=== PATIENT | male | born 1940 | race Caucasian/White ===

== ENCOUNTER → 2016-11-08 | Outpatient (CLI) | payer OTHER ==
[2016-03-19 09:52] VITALS: BP 133/63
[2016-11-08 11:05] LABS: BASOPHILS % (AUTO) 0.4 % (0.2-1.0); EOSINOPHILS % (AUTO) 0.6 % (0.9-2.9); HEMATOCRIT 43.3 % (42.0-54.0); HEMOGLOBIN 15.2 g/dL (13.5-18.0); LYMPHOCYTES # (AUTO) 1.3 X10^3/uL (1.3-2.9); LYMPHOCYTES % (AUTO) 20.6 % (21.0-51.0); MEAN CORPUSCULAR HEMOGLOBIN 31.1 pg (27.0-34.0); MEAN CORPUSCULAR HGB CONC 35.2 g/dL (33.0-35.0); MEAN CORPUSCULAR VOLUME 88.3 fL (80.0-100.0); MEAN PLATELET VOLUME 8.8 fL (7.4-11.0); MONOCYTES # (AUTO) 0.7 x10^3/uL (0.3-0.8); MONOCYTES % (AUTO) 10.4 % (0.0-13.0); NEUTROPHILS # (AUTO) 4.3 x10^3/uL (2.2-4.8); PLATELET COUNT 203 X10^3/uL (150.0-450.0); RED CELL DISTRIBUTION WIDTH 12.9 % (11.6-16.5); WHITE BLOOD COUNT 6.3 X10^3/uL (3.6-10.0)
[2016-11-08 11:09] LABS: ALANINE AMINOTRANSFERASE 20 Units/L (12-78); ALBUMIN 4.2 g/dL (3.4-5.0); ALKALINE PHOSPHATASE 88 Units/L (46-116); ASPARTATE AMINO TRANSFERASE 18 Units/L (15-37); BLOOD UREA NITROGEN 24 mg/dL (7-18); CALCIUM 9.1 mg/dL (8.5-10.1); CHLORIDE 102 mmol/L (98-107); CHOL/HDL RATIO 4.4 (0.0-5.0); CHOLESTEROL 157 mg/dL (0-200); COR NA(FOR HYPERGLY) 141 mmol/L (136-145); CREATININE 1.64 mg/dL (0.70-1.30); GLUCOSE 132 mg/dL (65-99); HDL CHOLESTEROL 36 mg/dL (40-60); SODIUM 140 mmol/L (136-145); THEOPHYLLINE 19.3 ug/mL (10-20); TOTAL PROTEIN 7.8 g/dL (6.4-8.2); TRIGLYCERIDES 141 mg/dL (0-150); eGFR BLACK RACES 53 (>60); eGFR NON BLACK RACES 43 (>60)
[2016-11-14 08:12] LABS: METHYLMALONIC ACID 0.23 umol/L (0.00-0.40)
== END ==
LOC: LAB 10:37
PROVIDERS: ATTEND Nurse Practitioner Family
DX: R53.83 Other fatigue (principal); E78.4 Other hyperlipidemia; J44.9 Chronic obstructive pulmonary disease, unspecified
CPT/HCPCS: 36415; 80053; 80061; 80198; 82306; 82607; 83918; 85025

== ENCOUNTER 2016-11-26 10:46 | Emergency (ER) | payer OTHER ==
[2016-11-26 10:53] VITALS: BP 166/78; BMI 34.0
[2016-11-26 11:24] LABS: BASOPHILS % (AUTO) 0.7 % (0.2-1.0); EOSINOPHILS # (AUTO) 0.1 x10^3/uL (0.0-0.2); EOSINOPHILS % (AUTO) 2.4 % (0.9-2.9); HEMATOCRIT 41.1 % (42.0-54.0); HEMOGLOBIN 14.4 g/dL (13.5-18.0); LYMPHOCYTES # (AUTO) 1.7 X10^3/uL (1.3-2.9); LYMPHOCYTES % (AUTO) 29.7 % (21.0-51.0); MEAN CORPUSCULAR HEMOGLOBIN 30.9 pg (27.0-34.0); MEAN CORPUSCULAR HGB CONC 35.1 g/dL (33.0-35.0); MEAN CORPUSCULAR VOLUME 88.3 fL (80.0-100.0); MONOCYTES # (AUTO) 0.4 x10^3/uL (0.3-0.8); MONOCYTES % (AUTO) 6.7 % (0.0-13.0); NEUTROPHILS # (AUTO) 3.5 x10^3/uL (2.2-4.8); NEUTROPHILS % (AUTO) 60.5 % (42.0-75.0); PLATELET COUNT 194 X10^3/uL (150.0-450.0); RED BLOOD COUNT 4.66 X10^6/uL (4.7-6.0); RED CELL DISTRIBUTION WIDTH 13.1 % (11.6-16.5); WHITE BLOOD COUNT 5.8 X10^3/uL (3.6-10.0)
--- NOTE | 2016-11-26 11:26 | DR.AMS ---
HPI - Time Seen Time seen: 11:00 - PCP Primary Care Physician: LIZZIE PLATA - Complaint Chief Complaint:: PATIENT STATED HE THOUGHT HE WAS HAVING A STROKE CAUSE HE WAS PRAYING FRIDAY AND HE FORGOT WHAT HE WAS PRAYING ABOUT. HE STATED SINCE FRIDAY HE HAS BEEN FINE - Reviewed Nurses Notes Reviewed: Yes - Source History Provided: Patient - Mode of Arrival Mode of Arrival: Ambulatory - Timing Onset of Chief Complaint: 11/24/16 Came On: Suddenly Symptoms: Improving Symptom Onset: Known Onset of Symptoms Start Date: 11/24/16 Onset of Symptoms Start Time: 11:00 - Duration Duration: Minutes - Quality Quality: Memory Loss (at that time not now) - Severity Severity: Mild - Context Recent: denies: None, Fever, Cough, Urinary Symptoms, Nausea, Vomiting, Rash, Trauma, Medication Change, Drug Use History Of: None - Associated Signs and Symptoms Associated Signs and Symptoms: Headache PMH - PMH Past Medical History: Yes Past Medical History: COPD, Coronary Artery Disease, Hypertension Past Surgical History: Yes Surgical History: Angioplasty/Stents, TURP - Family History History of Family Medical Conditions: Yes Family Medical History: Diabetes Mellitus, [place], Hypertension - Social History Does patient currently use any type of tobacco product: No Have you used tobacco products in the last 12 months: No Type of Tobacco Use: None Does any household member use tobacco: No Alcohol Use: None Do you use any recreational Drugs:: No Lives With: Family - infectious screening In the last 2 months have you had wt loss of >10#?: NO Have you had fever, night sweats or hemotysis?: No Have you traveled outside the country in the last 6 months?: No Isolation: Standard ROS - Review of Systems Constitutional: No Symptoms Reported Eyes: No Symptoms Reported ENTM: No Symptoms Reported Respiratoy: No Symptoms Reported Cardiovascular: No Symptoms Reported Gastrointestinal/Abdominal: No Symptoms Reported Genitourinary: No Symptoms Reported Neurological: Headache Musculoskeletal: No Symptoms Reported Integumentary: No Symptoms Reported Hematologic/Lymphatic: No Symptoms Reported Endocrine: No Symptoms Reported Psychiatric: Depression PE - Vitals Vital Signs: Temp Pulse Resp BP BP BP Pulse Ox 11/26/16 10:47 98.9 F 82 16 166/78 99 03/19/16 09:33 133/63 01/26/14 11:50 126/71 01/26/14 10:36 124/70 - General Limitations: No Limitations General Appearance: Alert, In No Apparent Distress - Head Head Exam: Normal Inspection Head Exam Physical: negative: Laceration, Abrasion, Contusion, Hematoma, Raccoon Eyes, Guerra's Sign, Tenderness of Temporal Artery, CSF Rhinorrhea, CSF Otorrhea, Other - Eyes Eye exam: Normal Appearance, PERRL, EOMI. negative: Scleral Icterus, Conjunctival Injection Pupils: Regular, Round: Bilateral - ENT ENT Exam: Normal Exam, Normal Oropharynx External Ear Exam: Normal External Inspection Nose Exam: Normal Nose Exam Mouth Exam: Normal Inspection Throat Exam: Normal Inspection - Neck Neck Exam: Normal Inspection, Full ROM, Trachea Midline - Chest Chest Inspection: Normal Inspection - Respiratory Respiratory Exam: Normal Lung Sounds Bilat. negative: Accessory Muscle Use, Respiratory Distress Respiratory Exam: Bilateral Clear to Auscultation - Cardiovascular Cardiovascular Exam: Regular Rate - Abdominal Exam Abdominal Exam: Normal Inspection - Extremities Extremities Exam: Normal Inspection, Full ROM - Neurological Neurological Exam: Alert, Oriented X3, CN II-XII Intact Patient Oriented To: Person, Place, Time Speech: Fluid Speech (states he has problems finding words) Cranial Nerve Exam: EOM Function (II, III, IV, ): Normal, Facial Sensation (V) : Normal, Facial Palsy (VII): Normal, Gag reflex (XI): Normal, Spinal Accessory Function (XI): Normal, Tongue Deviation: Normal Motor Strength - LUE: 4/5 Motor Strength - RUE: 4/5 Motor Strength - LLE: 4/5 Motor Strength - RLE: 4/5 - Psychological Psychiatric Exam: Normal Mood - Skin Skin Exam: Intact, Normal Color ROR - Labs Reviewed Result Diagrams: 11/26/16 11:18 11/26/16 11:18 Laboratory: WBC 5.8 X10^3/uL (3.6-10.0) 11/26/16 11:18 RBC 4.66 X10^6/uL (4.7-6.0) L 11/26/16 11:18 Hgb 14.4 g/dL (13.5-18.0) 11/26/16 11:18 Hct 41.1 % (42.0-54.0) L 11/26/16 11:18 MCV 88.3 fL (80.0-100.0) 11/26/16 11:18 MCH 30.9 pg (27.0-34.0) 11/26/16 11:18 MCHC 35.1 g/dL (33.0-35.0) H 11/26/16 11:18 RDW 13.1 % (11.6-16.5) 11/26/16 11:18 Plt Count 194 X10^3/uL (150.0-450.0) 11/26/16 11:18 MPV 9.0 fL (7.4-11.0) 11/26/16 11:18 Neut % 60.5 % (42.0-75.0) 11/26/16 11:18 Lymph % 29.7 % (21.0-51.0) 11/26/16 11:18 [place] % 6.7 % (0.0-13.0) 11/26/16 11:18 Eos % 2.4 % (0.9-2.9) 11/26/16 11:18 Baso % 0.7 % (0.2-1.0) 11/26/16 11:18 Neut # 3.5 x10^3/uL (2.2-4.8) 11/26/16 11:18 Lymph # 1.7 X10^3/uL (1.3-2.9) 11/26/16 11:18 [place] # 0.4 x10^3/uL (0.3-0.8) 11/26/16 11:18 Eos # 0.1 x10^3/uL (0.0-0.2) 11/26/16 11:18 Baso # 0.0 X10^3/uL (0.0-0.1) 11/26/16 11:18 Absolute Nucleated RBC 0.0 /100WBC 11/26/16 11:18 Sodium 143 mmol/L (136-145) 11/26/16 11:18 Corrected Sodium TNP 11/26/16 11:18 Potassium 3.9 mmol/L (3.5-5.1) 11/26/16 11:18 Chloride 107 mmol/L (98-107) 11/26/16 11:18 Carbon Dioxide 25.5 mmol/L (21-32) 11/26/16 11:18 BUN 20 mg/dL (7-18) H 11/26/16 11:18 Creatinine 1.51 mg/dL (0.70-1.30) H 11/26/16 11:18 Est GFR (MDRD) Af Amer 58 (>60) L 11/26/16 11:18 Est GFR (MDRD) Non-Af 48 (>60) L 11/26/16 11:18 Glucose 109 mg/dL (65-99) H 11/26/16 11:18 Calcium 9.1 mg/dL (8.5-10.1) 11/26/16 11:18 Corrected Calcium TNP 11/26/16 11:18 Total Bilirubin 0.50 mg/dL (0.2-1.0) 11/26/16 11:18 AST 17 Units/L (15-37) 11/26/16 11:18 ALT 21 Units/L (12-78) 11/26/16 11:18 Alkaline Phosphatase 78 Units/L (46-116) 11/26/16 11:18 Total Protein 7.3 g/dL (6.4-8.2) 11/26/16 11:18 Albumin 4.1 g/dL (3.4-5.0) 11/26/16 11:18 Globulin 3.2 g/dL (2.5-4.5) 11/26/16 11:18 Albumin/Globulin Ratio 1.3 Ratio (1.1-2.1) 11/26/16 11:18 - XRAY XRAY Interpreted by: Radiologist XRAY Findings: CT Head: no acute findings - Diagnosis Discharge Problem: Transient memory loss - Discharge Plan Condition: Stable Prescriptions: Ibuprofen [Motrin Tab 800 mg] 800 mg PO Q8H PRN #30 tab PRN Reason: Pain/Inflammation - Follow ups/Referrals Follow ups/Referrals: Lizzie Plata [Primary Care Provider] - 3 days - Instructions
[2016-11-26 11:36] LABS: ALANINE AMINOTRANSFERASE 21 Units/L (12-78); ALBUMIN 4.1 g/dL (3.4-5.0); ALKALINE PHOSPHATASE 78 Units/L (46-116); ASPARTATE AMINO TRANSFERASE 17 Units/L (15-37); BLOOD UREA NITROGEN 20 mg/dL (7-18); CALCIUM 9.1 mg/dL (8.5-10.1); CARBON DIOXIDE 25.5 mmol/L (21-32); CHLORIDE 107 mmol/L (98-107); CREATININE 1.51 mg/dL (0.70-1.30); GLUCOSE 109 mg/dL (65-99); SODIUM 143 mmol/L (136-145); TOTAL PROTEIN 7.3 g/dL (6.4-8.2); eGFR BLACK RACES 58 (>60); eGFR NON BLACK RACES 48 (>60)
--- NOTE | 2016-11-26 11:51 | CT ---
HISTORY: Headache, memory loss Study: CT brain without contrast Comparison: None Technique: Multiple axial images of the brain were obtained from the skull base to the vertex without administr ation of IV contrast. Coronal and sagittal reformats were performed. Dose reduction procedures were used with MA/kv adjusted for body size. Findings: No acute intraparenchymal hemorrhage or mass can be identified. No extra-axial fluid collections ar e seen. No alteration in the attenuation of the brain parenchyma can be identified to suggest acute or subacute ischemic change. The ventricular system is symmetric and nondilated. there is decrease d attenuation in the periventricular white matter suggestive of small vessel vascular disease. Age-r elated cortical atrophy is present. The extracranial structures are grossly unremarkable. IMPRESSION: 1. No acute intracranial process can be identified. 2. Small-vessel disease 3. Age-related cortical atrophy Reported By:
[2016-11-26] MEDS ORDERED: MOTRIN TAB 800 MG PO ONE ×2 (12:02→12:03)
== END 2016-11-26 12:09 | disposition home or self-care (01) ==
LOC: ER 10:46
DX: R41.3 Other amnesia (principal); R51 Headache
CPT/HCPCS: 36415; 70450; 80053; 85025; 93005; 93010; 99283

== ENCOUNTER → 2016-11-28 | Outpatient (CLI) | payer OTHER ==
[2016-11-26 10:53] VITALS: BP 166/78
[2016-11-28 13:31] LABS: BASOPHILS % (AUTO) 0.4 % (0.2-1.0); EOSINOPHILS # (AUTO) 0.1 x10^3/uL (0.0-0.2); EOSINOPHILS % (AUTO) 1.7 % (0.9-2.9); HEMATOCRIT 40.8 % (42.0-54.0); HEMOGLOBIN 14.2 g/dL (13.5-18.0); LYMPHOCYTES # (AUTO) 1.9 X10^3/uL (1.3-2.9); LYMPHOCYTES % (AUTO) 28.7 % (21.0-51.0); MEAN CORPUSCULAR HEMOGLOBIN 30.9 pg (27.0-34.0); MEAN CORPUSCULAR HGB CONC 34.9 g/dL (33.0-35.0); MEAN CORPUSCULAR VOLUME 88.6 fL (80.0-100.0); MEAN PLATELET VOLUME 8.7 fL (7.4-11.0); MONOCYTES # (AUTO) 0.4 x10^3/uL (0.3-0.8); MONOCYTES % (AUTO) 6.1 % (0.0-13.0); NEUTROPHILS # (AUTO) 4.2 x10^3/uL (2.2-4.8); NEUTROPHILS % (AUTO) 63.1 % (42.0-75.0); PLATELET COUNT 200 X10^3/uL (150.0-450.0); RED BLOOD COUNT 4.61 X10^6/uL (4.7-6.0); RED CELL DISTRIBUTION WIDTH 13.3 % (11.6-16.5); RETICULOCYTE % 2.08 % (0.8-2.2); WHITE BLOOD COUNT 6.7 X10^3/uL (3.6-10.0)
[2016-11-28 13:41] LABS: FREE T4 (FREE THYROXINE) 0.91 ng/dL (0.76-1.46); TSH (3RD GENERATION) 1.366 uIU/mL (0.358-3.74)
[2016-12-02 13:13] LABS: METHYLMALONIC ACID 0.17 umol/L (0.00-0.40)
== END ==
LOC: LAB 12:18
PROVIDERS: ATTEND Nurse Practitioner Family
DX: R41.3 Other amnesia (principal)
CPT/HCPCS: 36415; 82607; 82615; 82746; 83918; 84436; 84439; 84443; 85025; 85045; 86256; 86340; 86592

== ENCOUNTER → 2016-12-12 | Outpatient (CLI) | payer OTHER ==
[2016-11-26 10:53] VITALS: BP 166/78
--- NOTE | 2016-12-12 14:12 | MRI ---
STUDY: MRI OF THE BRAIN WITHOUT AND WITH GADOLINIUM HISTORY: Temporary memory loss. Technique: Multiplanar multi-sequence MRI of the brain was obtained utilizing standard departmental protocol. Sagittal and axial T1, axial T2, FLAIR, diffusion (DWI/ADC) images through the brain were performed. 20 cc of Omniscan was administered intravenously without reported complication following acquisition of informed written consent. Post gadolinium axial and coronal T1 weighted images were also perform ed and reviewed. Comparison: Head CT dated November 26, 2016. Findings: Pre gadolinium brain: The sulci, cisterns and ventricles are prominent consistent with diffuse volum e loss. There are confluent and scattered foci of T2 prolongation in the periventricular and subcort ical white matter of both hemispheres. This is a nonspecific finding which likely represents microan giopathic change in a patient of this age. There is no evidence of acute territorial infarction, hemorrhage, mass, mass effect, or midline shif t. There are no abnormal intra-axial or extra-axial fluid collections. The major intracranial vascular flow voids appear intact. The right vertebral artery is dominant. Post gadolinium brain: Following the uneventful administration of intravenous gadolinium, there is n o evidence of abnormal parenchymal or leptomeningeal enhancement. IMPRESSION: 1. No evidence of acute intracranial abnormality. 2. Nonspecific white matter change and volume loss. Reported By:
== END ==
LOC: RAD 10:19
PROVIDERS: ATTEND Nurse Practitioner Family
DX: R41.3 Other amnesia (principal)
CPT/HCPCS: 70553; 95819

== ENCOUNTER → 2016-12-17 | Outpatient (CLI) | payer OTHER ==
[2016-11-26 10:53] VITALS: BP 166/78
--- NOTE | 2016-12-17 12:03 | RAD ---
HISTORY: Injury, fall, bilateral hip pain Study: Right hip two views, AP pelvis Comparison: None Findings: A single frontal view of the pelvis demonstrates the pelvic ring to be intact. No evidence for acut e cortical disruption or dislocation of the hip can be observed. Frog leg views of the hip fails to demonstrate evidence for fracture or significant joint abnormality. Impression: 1. Negative exam. HISTORY: Injury, fall, bilateral hip pain Study: Left hip two views, AP pelvis Comparison: None Findings: A single frontal view of the pelvis demonstrates the pelvic ring to be intact. No evidence for acut e cortical disruption or dislocation of the hip can be observed. Frog leg views of the hip fails to demonstrate evidence for fracture or significant joint abnormality. Impression: 1. Negative exam. Reported By:
--- NOTE | 2016-12-17 12:05 | RAD ---
HISTORY: Injury, fall, low back pain Study: Lumbar spine three view Comparison: None Findings: The alignment is normal. The vertebral bodies are of average height with the exception of a compress ion fracture of L1 approximately 50%. This is of indeterminate age. Degenerative disc disease is pre sent L3-4, L5-S1. The pedicles are intact. The SI joints are normal. Facet degenerative joint diseas e is present at L5-S1 bilaterally. IMPRESSION: Compression fracture L1 age indeterminate Degenerative disc disease L3-4, L5-S1. Facet degenerative joint disease L5-S1 Reported By:
== END | disposition home or self-care (01) | DRG 552 ==
LOC: RAD 11:06
PROVIDERS: ATTEND Nurse Practitioner Family
DX: M54.5 Low back pain (principal); M25.551 Pain in right hip; M25.552 Pain in left hip; M51.36 Other intervertebral disc degeneration, lumbar region; M51.37 Other intervertebral disc degeneration, lumbosacral region; M47.897 Other spondylosis, lumbosacral region
CPT/HCPCS: 72100; 73521

== ENCOUNTER → 2016-12-26 | Outpatient (CLI) | payer OTHER ==
[2016-11-26 10:53] VITALS: BP 166/78
--- NOTE | 2016-12-26 16:20 | MRI ---
HISTORY: Compression fracture. Study: MRI lumbar spine without contrast Comparison: Lumbar spine series dated December 17, 2016. Technique: Multiplanar multi-sequence MRI of the lumbar spine was obtained. Sagittal T1, sagittal T 2, and stir weighted images, axial T1, and axial T2 images were obtained. Findings: There are anterior compression fractures at the L1 and L2 vertebral bodies. No increased signal on S TIR sequences. These are consistent with remote fractures. The osseous structures are otherwise inta ct. No acute listhesis. Multilevel disc desiccation with mild to moderate disk height loss. Associat ed type 2 Modic endplate changes. Multilevel Schmorl's nodes. The conus medullaris terminates at L1. Prominent right extra renal pelvis. Otherwise, the visualized soft tissues are unremarkable. T12 -- L1: No significant disc bulge, neural foraminal narrowing, or spinal canal stenosis. L1 -- L2: Broad-based disk bulge without significant neural foraminal narrowing or spinal canal sten osis. L2 -- L3: Broad-based disk bulge that extends into the lateral recesses causing mild bilateral neura l foraminal narrowing. No significant spinal canal stenosis. L3 -- L4: Broad-based disk bulge that extends into the lateral recesses causing moderate right and m ild left neural foraminal narrowing. No significant spinal canal stenosis. L4 -- L5: Broad-based disk bulge that extends into the lateral recesses causing moderate to severe l eft and moderate right neural foraminal narrowing. No significant spinal canal stenosis. L5 -- S1: Broad-based disk bulge that extends into the lateral recesses causing moderate to severe l eft and moderate right neural foraminal narrowing. No significant spinal canal stenosis. Multilevel mild/moderate facet/ligamentum flavum hypertrophy. IMPRESSION: 1. Remote compression fractures of the L1 and L2 vertebral bodies. No evidence of acute compression fracture. 2. Multilevel degenerative changes of the lumbar spine, which are worse at L4 through S1 with broad- based disc bulges causing moderate to severe neural foraminal narrowing. No significant spinal canal stenosis. Reported By:
== END ==
LOC: RAD 10:31
PROVIDERS: ATTEND Nurse Practitioner Family
DX: S32.010B Wedge compression fracture of first lumbar vertebra, initial encounter for open fracture (principal); X58.XXXA Exposure to other specified factors, initial encounter
CPT/HCPCS: 72148

== ENCOUNTER → 2017-05-19 | Outpatient (CLI) | payer OTHER ==
[2017-05-19 15:09] LABS: BASOPHILS # (AUTO) 0.1 X10^3/uL (0.0-0.1); BASOPHILS % (AUTO) 1.1 % (0.2-1.0); EOSINOPHILS # (AUTO) 0.1 x10^3/uL (0.0-0.2); EOSINOPHILS % (AUTO) 1.9 % (0.9-2.9); HEMATOCRIT 41.4 % (42.0-54.0); HEMOGLOBIN 14.8 g/dL (13.5-18.0); LYMPHOCYTES % (AUTO) 26.4 % (21.0-51.0); MEAN CORPUSCULAR HEMOGLOBIN 31.9 pg (27.0-34.0); MEAN CORPUSCULAR HGB CONC 35.7 g/dL (33.0-35.0); MEAN CORPUSCULAR VOLUME 89.4 fL (80.0-100.0); MEAN PLATELET VOLUME 8.5 fL (7.4-11.0); MONOCYTES # (AUTO) 0.6 x10^3/uL (0.3-0.8); MONOCYTES % (AUTO) 7.4 % (0.0-13.0); NEUTROPHILS # (AUTO) 4.8 x10^3/uL (2.2-4.8); NEUTROPHILS % (AUTO) 63.2 % (42.0-75.0); PLATELET COUNT 235 X10^3/uL (150.0-450.0); RED BLOOD COUNT 4.63 X10^6/uL (4.7-6.0); RED CELL DISTRIBUTION WIDTH 13.4 % (11.6-16.5); WHITE BLOOD COUNT 7.5 X10^3/uL (3.6-10.0)
[2017-05-19 15:18] LABS: ALANINE AMINOTRANSFERASE 21 Units/L (12-78); ALBUMIN 4.1 g/dL (3.4-5.0); ALKALINE PHOSPHATASE 92 Units/L (46-116); ASPARTATE AMINO TRANSFERASE 18 Units/L (15-37); BLOOD UREA NITROGEN 27 mg/dL (7-18); CALCIUM 9.3 mg/dL (8.5-10.1); CARBON DIOXIDE 25.4 mmol/L (21-32); CHLORIDE 104 mmol/L (98-107); CHOL/HDL RATIO 3.3 (0.0-5.0); CHOLESTEROL 158 mg/dL (0-200); COR NA(FOR HYPERGLY) 140 mmol/L (136-145); CREATININE 1.66 mg/dL (0.70-1.30); HDL CHOLESTEROL 48 mg/dL (40-60); SODIUM 140 mmol/L (136-145); TOTAL PROTEIN 7.5 g/dL (6.4-8.2); TRIGLYCERIDES 148 mg/dL (0-150); eGFR BLACK RACES 52 (>60); eGFR NON BLACK RACES 43 (>60)
[2017-05-19 15:59] LABS: TOTAL PSA 0.25 ng/mL (0.13-4.0)
== END ==
LOC: LAB 14:42
PROVIDERS: ATTEND Nurse Practitioner Family
DX: I10 Essential (primary) hypertension (principal); E56.8 Deficiency of other vitamins; E53.8 Deficiency of other specified B group vitamins; E78.4 Other hyperlipidemia; R35.8 Other polyuria; J44.9 Chronic obstructive pulmonary disease, unspecified
CPT/HCPCS: 36415; 80053; 80061; 80198; 82306; 82607; 82746; 84153; 85025

== ENCOUNTER 2017-08-03 17:22 | Emergency (ER) | payer OTHER ==
[2017-08-03 17:30] VITALS: BP 143/101; BMI 36.1
--- NOTE | 2017-08-03 21:50 | DR.GENAD ---
HPI - PCP Primary Care Physician: daniele redmond - Complaint/Symptoms Chief Complaint:: patient stated he feel 5 days ago and hurt his left knee and left elbow and a skin tear to his right forarm - Source History Provided: Patient - Mode of Arrival Mode of Arrival: Ambulatory - Timing Onset of Chief Complaint: 07/29/17 PMH - PMH Past Medical History: Yes Past Medical History: COPD, Coronary Artery Disease, Hypertension Past Surgical History: Yes Surgical History: Angioplasty/Stents, TURP - Family History History of Family Medical Conditions: Yes Family Medical History: Diabetes Mellitus, [place], Hypertension - Social History Does patient currently use any type of tobacco product: No Have you used tobacco products in the last 12 months: No Type of Tobacco Use: None Does any household member use tobacco: No Alcohol Use: None Do you use any recreational Drugs:: No Lives With: Family Lives Where: Home - infectious screening In the last 2 months have you had wt loss of >10#?: NO Have you had fever, night sweats or hemotysis?: No Have you traveled outside the country in the last 6 months?: No Isolation: Standard PE - Vital Signs Vitals: Pulse Rate 104 Respiratory Rate 16 Blood Pressure [Left Arm] 126/71 Blood Pressure [Right Arm] 124/70 Blood Pressure 143/101 O2 Sat by Pulse Oximetry 98 - Discharge Plan Condition: Stable Prescriptions: Cephalexin [KEFLEX CAP 500 MG *] 500 mg PO TID #30 cap - Follow ups/Referrals Follow ups/Referrals: PAULETTE REDMOND [Primary Care Provider] - 3 days - Instructions Instructions: Musculoskeletal Pain, Knee Pain, [id number] Additional Instructions: RETURN TO ED IF WORSE.
--- NOTE | 2017-08-03 22:58 | RAD ---
Left knee, two views Indication: Fall with left knee pain Comparison: None Findings: No acute fracture, malalignment or significant joint effusion is identified. There is mild tricompartmental degenerative arthrosis, most significant within the lateral femorotibial and patello femoral compartments. Mild subcutaneous edema is noted along the lateral aspect of the knee. Remainin g soft tissues are unremarkable. Impression: Mild subcutaneous edema of the lateral knee without acute fracture or dislocation. Mild tricompartmental DJD. Reported By:
--- NOTE | 2017-08-03 23:00 | RAD ---
HISTORY: Pain status post fall. Study: Three views of the left elbow and three views of the right forearm. Comparison: None. Findings: Bilateral posterior olecranon enthesophytes. No acute cortical disruption or dislocation can be ident ified. No significant soft tissue swelling or effusion can be seen. IMPRESSION: No acute osseous abnormality. Reported By:
[2017-08-03] MEDS ORDERED: BACITRACIN ZINC ONE (23:07)
[2017-08-03] MEDS ORDERED: KEFLEX CAP 500 MG PO ONE ×2 (23:35→23:40)
== END 2017-08-03 23:54 | disposition home or self-care (01) ==
LOC: ER 17:49
DX: M79.1 Myalgia (principal); M25.562 Pain in left knee
CPT/HCPCS: 73070; 73090; 73564; 99282; 99283

== ENCOUNTER → 2017-09-05 | Outpatient (CLI) | payer OTHER ==
[2017-09-05 12:26] LABS: BASOPHILS % (AUTO) 0.5 % (0.2-1.0); EOSINOPHILS # (AUTO) 0.1 x10^3/uL (0.0-0.2); EOSINOPHILS % (AUTO) 0.8 % (0.9-2.9); HEMATOCRIT 45.1 % (42.0-54.0); HEMOGLOBIN 16.1 g/dL (13.5-18.0); MEAN CORPUSCULAR HGB CONC 35.7 g/dL (33.0-35.0); MEAN CORPUSCULAR VOLUME 89.6 fL (80.0-100.0); MEAN PLATELET VOLUME 8.9 fL (7.4-11.0); MONOCYTES # (AUTO) 0.6 x10^3/uL (0.3-0.8); NEUTROPHILS # (AUTO) 7.5 x10^3/uL (2.2-4.8); NEUTROPHILS % (AUTO) 80.7 % (42.0-75.0); PLATELET COUNT 185 X10^3/uL (150.0-450.0); RED BLOOD COUNT 5.03 X10^6/uL (4.7-6.0); RED CELL DISTRIBUTION WIDTH 13.1 % (11.6-16.5); WHITE BLOOD COUNT 9.2 X10^3/uL (3.6-10.0)
--- NOTE | 2017-09-05 12:26 | RAD ---
Examination: Chest, PA and lateral views History: SOB Comparison August 16, 2016 Findings: Continued normal heart size with clear lungs and pleural spaces. There is a nonacute compre ssion fracture deformity at the thoracolumbar junction. Impression: No significant change or acute chest findings. Reported By:
[2017-09-05 12:37] LABS: ALANINE AMINOTRANSFERASE 17 Units/L (12-78); ALBUMIN 4.2 g/dL (3.4-5.0); ALKALINE PHOSPHATASE 70 Units/L (46-116); ASPARTATE AMINO TRANSFERASE 15 Units/L (15-37); BLOOD UREA NITROGEN 23 mg/dL (7-18); CALCIUM 9.4 mg/dL (8.5-10.1); CARBON DIOXIDE 27.9 mmol/L (21-32); CHLORIDE 99 mmol/L (98-107); COR NA(FOR HYPERGLY) 137 mmol/L (136-145); CREATININE 1.94 mg/dL (0.70-1.30); SODIUM 137 mmol/L (136-145); THEOPHYLLINE 11.6 ug/mL (10-20); TOTAL PROTEIN 8.1 g/dL (6.4-8.2); URIC ACID 7.3 mg/dL (3.5-7.2); eGFR BLACK RACES 43 (>60); eGFR NON BLACK RACES 36 (>60)
[2017-09-05 12:49] LABS: RHEUMATOID FACTOR NEGATIVE (NEGATIVE)
[2017-09-05 12:59] LABS: TOTAL PSA 0.29 ng/mL (0.13-4.0)
[2017-09-05 13:03] LABS: ERYTHROCYTE SEDIMENTATION RATE 24 MM/HOUR (0-15)
[2017-09-10 07:44] LABS: ANTI-NUCLEAR ANTIBODY TEST None Detected (None Detected)
== END ==
LOC: LAB 11:52
PROVIDERS: ATTEND Nurse Practitioner Family
DX: I10 Essential (primary) hypertension (principal); R35.8 Other polyuria; R22.32 Localized swelling, mass and lump, left upper limb; E53.8 Deficiency of other specified B group vitamins; J44.9 Chronic obstructive pulmonary disease, unspecified; R06.02 Shortness of breath
CPT/HCPCS: 36415; 71046; 80053; 80198; 82746; 84153; 84550; 85025; 85652; 86140; 86200; 86308; 86430

== ENCOUNTER → 2017-09-15 | Outpatient (CLI) | payer OTHER, BC ==
[2017-09-15 14:41] LABS: BASOPHILS # (AUTO) 0.1 X10^3/uL (0.0-0.1); BASOPHILS % (AUTO) 1.1 % (0.2-1.0); EOSINOPHILS # (AUTO) 0.2 x10^3/uL (0.0-0.2); EOSINOPHILS % (AUTO) 2.5 % (0.9-2.9); HEMATOCRIT 38.8 % (42.0-54.0); HEMOGLOBIN 13.8 g/dL (13.5-18.0); MEAN CORPUSCULAR HEMOGLOBIN 31.7 pg (27.0-34.0); MEAN CORPUSCULAR HGB CONC 35.6 g/dL (33.0-35.0); MEAN CORPUSCULAR VOLUME 89.2 fL (80.0-100.0); MEAN PLATELET VOLUME 7.5 fL (7.4-11.0); MONOCYTES # (AUTO) 0.8 x10^3/uL (0.3-0.8); MONOCYTES % (AUTO) 8.7 % (0.0-13.0); NEUTROPHILS # (AUTO) 6.3 x10^3/uL (2.2-4.8); NEUTROPHILS % (AUTO) 66.7 % (42.0-75.0); PLATELET COUNT 410 X10^3/uL (150.0-450.0); RED BLOOD COUNT 4.35 X10^6/uL (4.7-6.0); RED CELL DISTRIBUTION WIDTH 13.1 % (11.6-16.5); WHITE BLOOD COUNT 9.4 X10^3/uL (3.6-10.0)
[2017-09-15 14:52] LABS: ALANINE AMINOTRANSFERASE 23 Units/L (12-78); ALBUMIN 3.3 g/dL (3.4-5.0); ALKALINE PHOSPHATASE 60 Units/L (46-116); ASPARTATE AMINO TRANSFERASE 14 Units/L (15-37); BLOOD UREA NITROGEN 27 mg/dL (7-18); CALCIUM 8.5 mg/dL (8.5-10.1); CARBON DIOXIDE 29.6 mmol/L (21-32); CHLORIDE 105 mmol/L (98-107); COR CA(FOR HYPOALB) 9.1 mg/dL (8.5-10.1); CREATININE 1.73 mg/dL (0.70-1.30); SODIUM 141 mmol/L (136-145); TOTAL PROTEIN 7.3 g/dL (6.4-8.2); eGFR BLACK RACES 49 (>60); eGFR NON BLACK RACES 41 (>60)
[2017-09-15 15:26] LABS: ERYTHROCYTE SEDIMENTATION RATE 35 MM/HOUR (0-15)
--- NOTE | 2017-09-15 15:57 | RAD ---
HISTORY: Shortness of breath Study: 2 V the chest Comparison: September 05, 2017 Findings: The trachea is midline. The cardiac silhouette is enlarged. Interstitial changes are again seen sim ilar to prior exam. Subsegmental atelectasis and/or scarring are noted within the right lower lobe. The aorta is partially calcified and tortuous. IMPRESSION: Cardiomegaly. Interstitial changes similar to prior exam. Reported By:
== END ==
LOC: LAB 14:22
PROVIDERS: ATTEND Nurse Practitioner Family
DX: R06.02 Shortness of breath (principal); R09.89 Other specified symptoms and signs involving the circulatory and respiratory systems; R79.82 Elevated C-reactive protein (CRP)
CPT/HCPCS: 36415; 71046; 80053; 85025; 85652; 86140

== ENCOUNTER 2017-09-16 15:52 | Inpatient (IN) | payer OTHER, BC ==
[2017-09-16 16:25] LABS: BASOPHILS # (AUTO) 0.1 X10^3/uL (0.0-0.1); BASOPHILS % (AUTO) 0.6 % (0.2-1.0); EOSINOPHILS % (AUTO) 0.3 % (0.9-2.9); HEMATOCRIT 36.3 % (42.0-54.0); HEMOGLOBIN 12.8 g/dL (13.5-18.0); LYMPHOCYTES # (AUTO) 1.1 X10^3/uL (1.3-2.9); LYMPHOCYTES % (AUTO) 12.9 % (21.0-51.0); MEAN CORPUSCULAR HEMOGLOBIN 31.6 pg (27.0-34.0); MEAN CORPUSCULAR HGB CONC 35.3 g/dL (33.0-35.0); MEAN CORPUSCULAR VOLUME 89.6 fL (80.0-100.0); MEAN PLATELET VOLUME 7.7 fL (7.4-11.0); MONOCYTES # (AUTO) 0.5 x10^3/uL (0.3-0.8); MONOCYTES % (AUTO) 5.3 % (0.0-13.0); NEUTROPHILS # (AUTO) 7.1 x10^3/uL (2.2-4.8); NEUTROPHILS % (AUTO) 80.9 % (42.0-75.0); PLATELET COUNT 396 X10^3/uL (150.0-450.0); RED BLOOD COUNT 4.06 X10^6/uL (4.7-6.0); RED CELL DISTRIBUTION WIDTH 13.4 % (11.6-16.5); WHITE BLOOD COUNT 8.8 X10^3/uL (3.6-10.0)
[2017-09-16 16:57] LABS: ALANINE AMINOTRANSFERASE 22 Units/L (12-78); ALBUMIN 3.2 g/dL (3.4-5.0); ALKALINE PHOSPHATASE 51 Units/L (46-116); ASPARTATE AMINO TRANSFERASE 12 Units/L (15-37); BLOOD UREA NITROGEN 28 mg/dL (7-18); CARBON DIOXIDE 24.7 mmol/L (21-32); CHLORIDE 109 mmol/L (98-107); COR CA(FOR HYPOALB) 8.6 mg/dL (8.5-10.1); COR NA(FOR HYPERGLY) 144 mmol/L (136-145); CREATININE 1.37 mg/dL (0.70-1.30); SODIUM 143 mmol/L (136-145); TOTAL PROTEIN 6.5 g/dL (6.4-8.2); eGFR BLACK RACES > 60 (>60); eGFR NON BLACK RACES 53 (>60)
[2017-09-16 17:06] VITALS: BMI 35.1
[2017-09-16] MEDS ORDERED: SALINE 3% 15 ML NEB TX ONE (17:15)
[2017-09-16] MEDS ORDERED: SALINE 3% 15 ML NEB TX NEB ONE ×2 (17:18→17:30)
[2017-09-16] MEDS ORDERED: NS 1/2 1000 ML IV 1,000 ML IV ONE (17:57)
[2017-09-16] MEDS: NS 1/2 1000 ML IV 1,000 ML IV SCH (18:00)
[2017-09-16] MEDS: LEVAQUIN PREMIX IV 750 MG 750 MG/150 ML BAG IV SCH (18:00)
[2017-09-16] MEDS: ROBITUSSIN DM PO SCH ×2 (18:01→20:25)
[2017-09-16] MEDS ORDERED: XOPENEX 1.25 MG/3 ML NEBULE NEB SCH (21:00)
--- NOTE | 2017-09-16 22:44 | RAD ---
HISTORY: Pneumonia, shortness of breath Study: Single view chest Comparison: 09/15/2017 Findings: Single portable view is submitted. No infiltrate, effusion or pneumothorax identified. The cardiac an d mediastinal contours are within normal limits. The soft tissues are unremarkable. IMPRESSION: 1. No acute cardiopulmonary abnormality. Reported By:
[2017-09-16] MEDS: XOPENEX 1.25 MG/3 ML NEBULE NEB SCH (23:36)
[2017-09-17] MEDS ORDERED: NS 1/2 1000 ML IV 1,000 ML IV ONE ×2 (04:18→19:50)
[2017-09-17 05:28] LABS: BASOPHILS % (AUTO) 0.5 % (0.2-1.0); EOSINOPHILS # (AUTO) 0.1 x10^3/uL (0.0-0.2); EOSINOPHILS % (AUTO) 1.2 % (0.9-2.9); HEMOGLOBIN 11.9 g/dL (13.5-18.0); LYMPHOCYTES # (AUTO) 1.4 X10^3/uL (1.3-2.9); LYMPHOCYTES % (AUTO) 18.4 % (21.0-51.0); MEAN CORPUSCULAR HEMOGLOBIN 32.2 pg (27.0-34.0); MEAN CORPUSCULAR HGB CONC 35.9 g/dL (33.0-35.0); MEAN CORPUSCULAR VOLUME 89.5 fL (80.0-100.0); MEAN PLATELET VOLUME 7.7 fL (7.4-11.0); MONOCYTES # (AUTO) 0.5 x10^3/uL (0.3-0.8); MONOCYTES % (AUTO) 6.4 % (0.0-13.0); NEUTROPHILS # (AUTO) 5.4 x10^3/uL (2.2-4.8); NEUTROPHILS % (AUTO) 73.5 % (42.0-75.0); PLATELET COUNT 359 X10^3/uL (150.0-450.0); RED BLOOD COUNT 3.69 X10^6/uL (4.7-6.0); RED CELL DISTRIBUTION WIDTH 13.2 % (11.6-16.5); WHITE BLOOD COUNT 7.3 X10^3/uL (3.6-10.0)
[2017-09-17 05:50] LABS: ALANINE AMINOTRANSFERASE 22 Units/L (12-78); ALBUMIN 2.9 g/dL (3.4-5.0); ALKALINE PHOSPHATASE 48 Units/L (46-116); ASPARTATE AMINO TRANSFERASE 12 Units/L (15-37); BLOOD UREA NITROGEN 30 mg/dL (7-18); CALCIUM 8.1 mg/dL (8.5-10.1); CARBON DIOXIDE 24.7 mmol/L (21-32); CHLORIDE 106 mmol/L (98-107); COR NA(FOR HYPERGLY) 140 mmol/L (136-145); CREATININE 1.33 mg/dL (0.70-1.30); SODIUM 140 mmol/L (136-145); TOTAL PROTEIN 6.1 g/dL (6.4-8.2); eGFR BLACK RACES > 60 (>60); eGFR NON BLACK RACES 55 (>60)
[2017-09-17] MEDS: NS 1/2 1000 ML IV 1,000 ML IV SCH ×2 (07:41→19:52)
[2017-09-17] MEDS: XOPENEX 1.25 MG/3 ML NEBULE NEB SCH ×3 (08:23→18:31)
[2017-09-17] MEDS: LEVAQUIN PREMIX IV 750 MG 750 MG/150 ML BAG IV SCH (11:28)
[2017-09-17] MEDS: ROBITUSSIN DM PO SCH ×4 (11:28→20:00)
[2017-09-18] MEDS: XOPENEX 1.25 MG/3 ML NEBULE NEB SCH ×5 (03:30→20:51)
[2017-09-18 05:18] LABS: BASOPHILS % (AUTO) 0.5 % (0.2-1.0); EOSINOPHILS # (AUTO) 0.1 x10^3/uL (0.0-0.2); EOSINOPHILS % (AUTO) 1.2 % (0.9-2.9); HEMATOCRIT 35.7 % (42.0-54.0); HEMOGLOBIN 12.7 g/dL (13.5-18.0); LYMPHOCYTES # (AUTO) 1.4 X10^3/uL (1.3-2.9); LYMPHOCYTES % (AUTO) 16.3 % (21.0-51.0); MEAN CORPUSCULAR HEMOGLOBIN 31.6 pg (27.0-34.0); MEAN CORPUSCULAR HGB CONC 35.5 g/dL (33.0-35.0); MEAN CORPUSCULAR VOLUME 89.2 fL (80.0-100.0); MEAN PLATELET VOLUME 7.7 fL (7.4-11.0); MONOCYTES # (AUTO) 0.5 x10^3/uL (0.3-0.8); MONOCYTES % (AUTO) 6.4 % (0.0-13.0); NEUTROPHILS # (AUTO) 6.3 x10^3/uL (2.2-4.8); NEUTROPHILS % (AUTO) 75.6 % (42.0-75.0); PLATELET COUNT 360 X10^3/uL (150.0-450.0); RED CELL DISTRIBUTION WIDTH 13.2 % (11.6-16.5); WHITE BLOOD COUNT 8.4 X10^3/uL (3.6-10.0)
[2017-09-18 05:37] LABS: ALANINE AMINOTRANSFERASE 22 Units/L (12-78); ALBUMIN 3.2 g/dL (3.4-5.0); ALKALINE PHOSPHATASE 53 Units/L (46-116); ASPARTATE AMINO TRANSFERASE 11 Units/L (15-37); BLOOD UREA NITROGEN 30 mg/dL (7-18); CALCIUM 8.5 mg/dL (8.5-10.1); CARBON DIOXIDE 23.8 mmol/L (21-32); CHLORIDE 105 mmol/L (98-107); COR CA(FOR HYPOALB) 9.1 mg/dL (8.5-10.1); COR NA(FOR HYPERGLY) 141 mmol/L (136-145); CREATININE 1.37 mg/dL (0.70-1.30); SODIUM 140 mmol/L (136-145); TOTAL PROTEIN 6.5 g/dL (6.4-8.2); eGFR BLACK RACES > 60 (>60); eGFR NON BLACK RACES 53 (>60)
--- NOTE | 2017-09-18 07:11 | RAD ---
HISTORY: Pneumonia, shortness of breath Study: Chest AP portable Comparison: 09/16/2017 Findings: The heart is enlarged. No congestive heart failure is noted. No acute alveolar infiltrates or pleural effusions are identified. The bony thorax is unremarkable. IMPRESSION: Cardiomegaly without congestive heart failure No infiltrates Reported By:
[2017-09-18] MEDS ORDERED: NS 1/2 1000 ML IV 1,000 ML IV ONE ×2 (09:27→23:11)
[2017-09-18] MEDS: LEVAQUIN PREMIX IV 750 MG 750 MG/150 ML BAG IV SCH (09:30)
[2017-09-18] MEDS: ROBITUSSIN DM PO SCH ×4 (09:30→20:13)
[2017-09-18] MEDS: NS 1/2 1000 ML IV 1,000 ML IV SCH (10:08)
--- NOTE | 2017-09-18 11:58 | DR.UPDATE ---
H&P Update History and Physical Update: WAS SEEN IN THE OFFICE ON 09/15/2017. HE PRESENTED TODAY WITH COMPLAINTS OF WORSENING SYMPTOMS SINCE YESTERDAY. PATIENT WAS ADMITTED FOR BRONCHOPNEUMONIA AND STARTED ON THE PNEUMONIA PATHWAY. A H&P WAS COMPLETED PRIOR TO ADMISSION. PATIENT HAS BEEN SEEN AND EXAMINED WITH NO CHANGES NOTED TO H&P. Changes noted: NO Yes with the following:
[2017-09-19 05:26] LABS: BASOPHILS % (AUTO) 0.6 % (0.2-1.0); EOSINOPHILS # (AUTO) 0.1 x10^3/uL (0.0-0.2); HEMOGLOBIN 12.1 g/dL (13.5-18.0); LYMPHOCYTES # (AUTO) 1.2 X10^3/uL (1.3-2.9); LYMPHOCYTES % (AUTO) 15.7 % (21.0-51.0); MEAN CORPUSCULAR HEMOGLOBIN 32.1 pg (27.0-34.0); MEAN CORPUSCULAR HGB CONC 35.7 g/dL (33.0-35.0); MEAN PLATELET VOLUME 7.8 fL (7.4-11.0); MONOCYTES # (AUTO) 0.5 x10^3/uL (0.3-0.8); MONOCYTES % (AUTO) 6.1 % (0.0-13.0); NEUTROPHILS % (AUTO) 76.6 % (42.0-75.0); PLATELET COUNT 346 X10^3/uL (150.0-450.0); RED BLOOD COUNT 3.78 X10^6/uL (4.7-6.0); RED CELL DISTRIBUTION WIDTH 13.1 % (11.6-16.5); WHITE BLOOD COUNT 7.9 X10^3/uL (3.6-10.0)
[2017-09-19 05:37] LABS: ALBUMIN 3.1 g/dL (3.4-5.0); CALCIUM 8.5 mg/dL (8.5-10.1); CARBON DIOXIDE 25.9 mmol/L (21-32); COR CA(FOR HYPOALB) 9.2 mg/dL (8.5-10.1); CREATININE 1.5 mg/dL (0.70-1.30); TOTAL PROTEIN 6.1 g/dL (6.4-8.2)
--- NOTE | 2017-09-19 06:43 | RAD ---
History: Shortness of breath Study: Portable AP chest Comparison: Yesterday Findings: The heart is mildly enlarged and unchanged. The lungs are grossly clear. There is no edema or effusion. Impression: No acute cardiopulmonary disease demonstrated Reported By:
[2017-09-19] MEDS: ROBITUSSIN DM PO SCH (08:48)
[2017-09-19] MEDS: LEVAQUIN PREMIX IV 750 MG 750 MG/150 ML BAG IV SCH (08:48)
[2017-09-19 13:30] VITALS: BP 152/72
== END 2017-09-19 12:50 | disposition home or self-care (01) | DRG 195 ==
LOC: MED/SURG 15:52
PROVIDERS: ADMIT Internal Medicine; ATTEND Internal Medicine
DX: J18.0 Bronchopneumonia, unspecified organism (principal); I10 Essential (primary) hypertension; R06.02 Shortness of breath; R09.89 Other specified symptoms and signs involving the circulatory and respiratory systems; R53.83 Other fatigue
CPT/HCPCS: 36415; 71045; 80053; 85025; 87040; 87070; 87205; 94640; 94760; A4222; J1956

== ENCOUNTER 2017-10-12 16:55 | Emergency (ER) | payer OTHER, BC ==
[2017-10-12 17:05] VITALS: BMI 34.0
--- NOTE | 2017-10-12 17:26 | DR.MBACK ---
HPI - Time Seen Time seen: 17:22 - PCP Primary Care Physician: SRINATH LEAL - HPI Comment HPI Comment: GETTING WORSE. HAVING DYSURIA AND DECREASE URINE OUT PUT. NO FEVER OR HEMATURIA. PATIENT IS S/P PROTECTOMY. - Complaint Chief Complaint Doctors Comments: RIGHT FLANK PAIN TIMES ONE DAY. Chief Complaint:: PT C/O HAVING RIGHT FLANK PAIN/CRAMPING AND PT IS HAVING PAIN WHEN HE VOIDS AND HE C/O FREQUENCY AND OL[place]RIA, PT HS HX PROSTATE CANCER AND PROSTECTOMY, - Reviewed Nurses Notes Review: Yes - Source History Provided: Patient - Mode of Arrival Mode of Arrival: Ambulatory - Timing Onset of Chief Complaint: 10/11/17 - Duration Duration: Constant Duration: Days - Location Back Pain Location: Right, Lower, BACK, Flank Radiation To: None - Severity Severity: Moderate - Quality Quality: Sharp - Context Onset: Spontaneous History of: None - Modifying Factors Worsened By: None - Associated Signs and Symptoms Back Pain Symptoms: Urinary Frequency, Urinary Urgency PMH - PMH Past Medical History: Yes Past Medical History: COPD, Coronary Artery Disease, Hypertension Past Medical History Comment: DEMENTIA, CHF Past Surgical History: Yes Surgical History: Angioplasty/Stents, Other - Family History History of Family Medical Conditions: Yes Family Medical History: Diabetes Mellitus, Cancer, [place] - Social History Does patient currently use any type of tobacco product: No Have you used tobacco products in the last 12 months: No Type of Tobacco Use: None Does any household member use tobacco: No Alcohol Use: None Do you use any recreational Drugs:: No Lives With: Family Lives Where: Home - infectious screening In the last 2 months have you had wt loss of >10#?: NO Have you had fever, night sweats or hemotysis?: No Have you traveled outside the country in the last 6 months?: No Isolation: Standard ROS - Review of Systems Constitutional: No Symptoms Reported. negative: Chills, Fever Eyes: No Symptoms Reported. negative: Eye Pain, Discharge ENTM: No Symptoms Reported. negative: Ear Discharge, Nose Discharge, Nose Congestion, Throat Pain Respiratoy: Short of Breath (ON EXERTION). negative: Productive Cough, Non- Productive Cough, Wheezing, Hemoptysis Cardiovascular: negative: Chest Pain Gastrointestinal/Abdominal: negative: Abdominal Pain Genitourinary: Dysuria, Frequency. negative: Hematuria Neurological: negative: Headache, Weakness, Dizziness Musculoskeletal: Other (RIGHT FLANK PAIN) Integumentary: No Symptoms Reported Hematologic/Lymphatic: Easy Bleeding, Easy Bruising Endocrine: No Symptoms Reported All Other Systems: Reviewed and Negative PE - Vital Signs Vitals: Temperature 97.6 F Pulse Rate [Left Brachial] 72 Pulse Rate 85 Respiratory Rate 18 Blood Pressure [Left Arm] 136/74 Blood Pressure [Right Arm] 152/72 Blood Pressure 136/73 O2 Sat by Pulse Oximetry 97 - General Limitations: No Limitations General Appearance: Alert - Head Head Exam: Normal Inspection - Eyes Eye exam: Normal Appearance - ENT ENT Exam: Normal External Ear Exam - Chest Chest Inspection: Symmetric Chest Wall Rise - Respiratory Respiratory Exam: Normal Lung Sounds Bilat Respiratory Exam: Bilateral Clear to Auscultation - Cardiovascular Cardiovascular Exam: Regular Rate, Normal Rhythm, Normal Heart Sounds - Abdominal Exam Abdominal Exam: Normal Bowel Sounds, Soft. negative: Tenderness - Rectal Rectal Exam: Deferred - Genitourinary Exam: Male: Deferred - Extremities Extremities Exam: negative: Calf Tenderness - Back Back Exam: (R) CVA Tenderness, Vertebral Tenderness - Neurological Neurological Exam: Alert, Oriented X3 - Psychiatric Psychiatric Exam: Normal Affect, Normal Mood - Skin Skin Exam: Normal Color MDM - Additional Information Additional Information Obtained From: Family - Differential Diagnosis Differential Diagnosis: Bowel Obstruction, DJD, Fracture, Musculoskeletal Pain, Strain, Urinary Obstruction, Urolithiasis Course - Treatment Treatment: SEE ORDERS. - Consultation Consultation Comments: DISCUSS PATIENT WITH DR. TORRES. WILL TRANSFER TO [facility] [place]. - Education/Counseling Education/Counseling: Patient, Education Educated On: Treatment, Diagnosis, Needs for Follow Up ROR - Labs Reviewed Laboratory Results Reviewed?: Yes Result Diagrams: 10/12/17 17:38 10/12/17 17:38 Laboratory: WBC 11.6 X10^3/uL (3.6-10.0) H 10/12/17 17:38 RBC 4.65 X10^6/uL (4.7-6.0) L 10/12/17 17:38 Hgb 14.7 g/dL (13.5-18.0) 10/12/17 17:38 Hct 41.6 % (42.0-54.0) L 10/12/17 17:38 MCV 89.5 fL (80.0-100.0) 10/12/17 17:38 MCH 31.6 pg (27.0-34.0) 10/12/17 17:38 MCHC 35.3 g/dL (33.0-35.0) H 10/12/17 17:38 RDW 13.9 % (11.6-16.5) 10/12/17 17:38 Plt Count 218 X10^3/uL (150.0-450.0) 10/12/17 17:38 MPV 8.3 fL (7.4-11.0) 10/12/17 17:38 Neut % (Auto) 75.1 % (42.0-75.0) H 10/12/17 17:38 Lymph % (Auto) 16.0 % (21.0-51.0) L 10/12/17 17:38 [place] % (Auto) 7.8 % (0.0-13.0) 10/12/17 17:38 Eos % (Auto) 0.6 % (0.9-2.9) L 10/12/17 17:38 Baso % (Auto) 0.5 % (0.2-1.0) 10/12/17 17:38 Neut # (Auto) 8.7 x10^3/uL (2.2-4.8) H 10/12/17 17:38 Lymph # (Auto) 1.9 X10^3/uL (1.3-2.9) 10/12/17 17:38 [place] # (Auto) 0.9 x10^3/uL (0.3-0.8) H 10/12/17 17:38 Eos # (Auto) 0.1 x10^3/uL (0.0-0.2) 10/12/17 17:38 Baso # (Auto) 0.1 X10^3/uL (0.0-0.1) 10/12/17 17:38 Absolute Nucleated RBC 0.0 /100WBC 10/12/17 17:38 Sodium 141 mmol/L (136-145) 10/12/17 17:38 Corrected Sodium TNP 10/12/17 17:38 Potassium 3.8 mmol/L (3.5-5.1) 10/12/17 17:38 Chloride 106 mmol/L (98-107) 10/12/17 17:38 Carbon Dioxide 21.8 mmol/L (21-32) 10/12/17 17:38 BUN 32 mg/dL (7-18) H 10/12/17 17:38 Creatinine 2.37 mg/dL (0.70-1.30) H 10/12/17 17:38 Est GFR (MDRD) Af Amer 34 (>60) L 10/12/17 17:38 Est GFR (MDRD) Non-Af 28 (>60) L 10/12/17 17:38 Glucose 110 mg/dL (65-99) H 10/12/17 17:38 Calcium 8.5 mg/dL (8.5-10.1) 10/12/17 17:38 Corrected Calcium TNP 10/12/17 17:38 Total Bilirubin 0.30 mg/dL (0.2-1.0) 10/12/17 17:38 AST 12 Units/L (15-37) L 10/12/17 17:38 ALT 22 Units/L (12-78) 10/12/17 17:38 Alkaline Phosphatase 57 Units/L (46-116) 10/12/17 17:38 Total Protein 7.3 g/dL (6.4-8.2) 10/12/17 17:38 Albumin 3.9 g/dL (3.4-5.0) 10/12/17 17:38 Globulin 3.4 g/dL (2.5-4.5) 10/12/17 17:38 Albumin/Globulin Ratio 1.1 Ratio (1.1-2.1) 10/12/17 17:38 - XRAY XRAY Findings: REPORT DISCUSS WITH PATIENT. - Diagnosis Discharge Problem: Kidney stone on right side, Ureter obstruction, Right flank pain - Discharge Plan Disposition: [id number] Condition: Stable - Follow ups/Referrals Follow ups/Referrals: NFD,None [Primary Care Provider] - 3 days - Instructions
[2017-10-12 17:48] LABS: BASOPHILS # (AUTO) 0.1 X10^3/uL (0.0-0.1); BASOPHILS % (AUTO) 0.5 % (0.2-1.0); EOSINOPHILS # (AUTO) 0.1 x10^3/uL (0.0-0.2); EOSINOPHILS % (AUTO) 0.6 % (0.9-2.9); HEMATOCRIT 41.6 % (42.0-54.0); HEMOGLOBIN 14.7 g/dL (13.5-18.0); LYMPHOCYTES # (AUTO) 1.9 X10^3/uL (1.3-2.9); MEAN CORPUSCULAR HEMOGLOBIN 31.6 pg (27.0-34.0); MEAN CORPUSCULAR HGB CONC 35.3 g/dL (33.0-35.0); MEAN CORPUSCULAR VOLUME 89.5 fL (80.0-100.0); MEAN PLATELET VOLUME 8.3 fL (7.4-11.0); MONOCYTES # (AUTO) 0.9 x10^3/uL (0.3-0.8); MONOCYTES % (AUTO) 7.8 % (0.0-13.0); NEUTROPHILS # (AUTO) 8.7 x10^3/uL (2.2-4.8); NEUTROPHILS % (AUTO) 75.1 % (42.0-75.0); PLATELET COUNT 218 X10^3/uL (150.0-450.0); RED BLOOD COUNT 4.65 X10^6/uL (4.7-6.0); RED CELL DISTRIBUTION WIDTH 13.9 % (11.6-16.5); WHITE BLOOD COUNT 11.6 X10^3/uL (3.6-10.0)
[2017-10-12 17:57] LABS: ALANINE AMINOTRANSFERASE 22 Units/L (12-78); ALBUMIN 3.9 g/dL (3.4-5.0); ALKALINE PHOSPHATASE 57 Units/L (46-116); ASPARTATE AMINO TRANSFERASE 12 Units/L (15-37); BLOOD UREA NITROGEN 32 mg/dL (7-18); CALCIUM 8.5 mg/dL (8.5-10.1); CARBON DIOXIDE 21.8 mmol/L (21-32); CHLORIDE 106 mmol/L (98-107); CREATININE 2.37 mg/dL (0.70-1.30); SODIUM 141 mmol/L (136-145); TOTAL PROTEIN 7.3 g/dL (6.4-8.2); eGFR BLACK RACES 34 (>60); eGFR NON BLACK RACES 28 (>60)
--- NOTE | 2017-10-12 18:22 | CT ---
CT OF THE ABDOMEN AND PELVIS WITHOUT CONTRAST HISTORY: Right flank pain with voiding Comparison: None Technique: Multiple axial images of the abdomen and pelvis were obtained from the lung bases to the pubic symphy sis without the administration of IV contrast. Dose reduction techniques including Automated Exposur e Control (AEC) and adjustment of mA and kV were utlized. Findings: Mild cardiomegaly with severe coronary and valvular calcification. There is no pericardial effusion. Scarring and fibrosis involving the lung bases bilaterally.. The sensitivity for focal lesion detection within the solid abdominal viscera is diminished without t he use of IV contrast. Liver and spleen are normal in size, and contour. No focal lesions. No ductal dilitation. Small galls tones without gallbladder inflammation. The pancreas is unremarkable. 2.9 cm left adrenal nodule on s eries 3, image 30 measuring 11 Hounsfield units. 9 mm obstructing right proximal ureteral stone on se varsha 3, image 63 with proximal moderate to severe hydronephrosis of the right kidney. Simple right re nal cyst and hemorrhagic left renal cyst. No bowel obstruction or inflammation. Normal appendix. No abnormal appearing mesenteric or retroperit coker lymph nodes. No free fluid or fluid collections. Tethering of the anterior bladder consistent with prior pelvic surgery.. Prostate has been removed. N o free fluid or abnormal pelvic lymph nodes. No aggressive osseous lesions. IMPRESSION: 1. Obstructing right proximal ureteral stone with right-sided hydronephrosis as above. 2. Left adrenal adenoma. 3. Other chronic incidental findings as above. Reported By:
[2017-10-12] MEDS ORDERED: NS 1000 ML 1,000 ML IV ONE (19:01)
[2017-10-12] MEDS ORDERED: DEMEROL INJ IVP ONE (19:01)
[2017-10-12] MEDS ORDERED: ZOFRAN INJ 4 MG VIAL IVP ONE (19:01)
[2017-10-12] MEDS ORDERED: DEMEROL INJ ONE (19:03)
[2017-10-12] MEDS ORDERED: NS 1000 ML 1,000 ML ONE (19:03)
[2017-10-12] MEDS ORDERED: ZOFRAN INJ 4 MG VIAL ONE (19:03)
[2017-10-12 21:30] VITALS: BP 133/73
== END 2017-10-12 21:35 | disposition short-term general hospital (02) ==
LOC: ER 17:08
DX: N20.0 Calculus of kidney (principal); N13.5 Crossing vessel and stricture of ureter without hydronephrosis; R10.84 Generalized abdominal pain
CPT/HCPCS: 36415; 74176; 80053; 85025; 93005; 93010; 96365; 96374; 96375; 99285; A4222; J2175; J2405

== ENCOUNTER 2021-02-05 13:10 | Inpatient (IN) ==
--- NOTE | 2021-02-05 13:35 | DR.DIZZY ---
HPI Time seen Time Seen by Provider: 02/05/21 13:34 COVID-19 Coronavirus risk:travel/contact w/high risk person: No Has patient experienced Coronavirus symptoms: Yes Coronavirus symptoms experienced: Fever PMH PMH Past Medical History: CHF, COPD, Dementia and Hypertension Past Surgical History: Yes Surgical History: Ortho Surgery Family History Family Medical History: Diabetes Mellitus, Cancer and [place] Social History Do you use any recreational Drugs:: No Travel Risk Coronavirus risk:travel/contact w/high risk person: No Has patient experienced Coronavirus symptoms: Yes Coronavirus symptoms experienced: Fever Infectious screening Isolation: Droplet PE Vital Signs Vitals: Temperature 98.3 F Pulse Rate 116 Respiratory Rate 29 Blood Pressure [Left Arm] 100/65 Blood Pressure 120/69 O2 Sat by Pulse Oximetry 96 ROR Labs Reviewed Result Diagrams: 02/05/21 14:48 02/05/21 14:48 Laboratory: WBC 25.1 X10^3/uL (3.6-10.0) H 02/05/21 14:48 RBC 4.31 X10^6/uL (4.7-6.0) L 02/05/21 14:48 Hgb 14.2 g/dL (13.5-18.0) 02/05/21 14:48 Hct 40.4 % (42.0-54.0) L 02/05/21 14:48 MCV 93.7 fL (80.0-100.0) 02/05/21 14:48 MCH 33.0 pg (27.0-34.0) 02/05/21 14:48 MCHC 35.2 g/dL (33.0-35.0) H 02/05/21 14:48 RDW 13.3 % (11.6-16.5) 02/05/21 14:48 Plt Count 255 X10^3/uL (150.0-450.0) 02/05/21 14:48 Plt Count Comment Adequate (ADEQUATE) 02/05/21 14:48 MPV 7.9 fL (7.4-11.0) 02/05/21 14:48 Neut % (Auto) 88.2 % (42.0-75.0) H 02/05/21 14:48 Lymph % (Auto) 5.9 % (21.0-51.0) L 02/05/21 14:48 [place] % (Auto) 5.4 % (0.0-13.0) 02/05/21 14:48 Eos % (Auto) 0.1 % (0.9-2.9) L 02/05/21 14:48 Baso % (Auto) 0.4 % (0.2-1.0) 02/05/21 14:48 Neut # (Auto) 22.1 x10^3/uL (2.2-4.8) H 02/05/21 14:48 Lymph # (Auto) 1.5 X10^3/uL (1.3-2.9) 02/05/21 14:48 [place] # (Auto) 1.4 x10^3/uL (0.3-0.8) H 02/05/21 14:48 Eos # (Auto) 0.0 x10^3/uL (0.0-0.2) 02/05/21 14:48 Baso # (Auto) 0.1 X10^3/uL (0.0-0.1) 02/05/21 14:48 Absolute Nucleated RBC 0.1 /100WBC 02/05/21 14:48 Total Counted 100 02/05/21 14:48 Neutrophils % (Manual) 84 % (39-76) H 02/05/21 14:48 Band Neutrophils % 5 % (0-10) 02/05/21 14:48 Lymphocytes % (Manual) 6 % (13-43) L 02/05/21 14:48 Monocytes % (Manual) 5 % (4-9) 02/05/21 14:48 Plt Morphology Comment Normal (NORMAL) 02/05/21 14:48 RBC Morphology Normal (NORMAL) 02/05/21 14:48 Sample Site Right radial 02/05/21 18:29 ABG pH 7.440 (7.35-7.45) 02/05/21 18:29 ABG pCO2 31.0 mmHg (35.0-45.0) L 02/05/21 18:29 ABG pO2 77.0 mmHg (80.0-100.0) L 02/05/21 18:29 ABG HCO3 21.1 mmol/L (22-26) L 02/05/21 18:29 ABG O2 Saturation 96.0 % (90-100) 02/05/21 18:29 ABG Base Excess -2.2 mmol/L (-2.0-2.0) L 02/05/21 18:29 Beka Test Pos 02/05/21 18:29 A-a Gradient 112.0 mmHg 02/05/21 18:29 FiO2 32.0 02/05/21 18:29 Blood Gas Comments Nany well aw 02/05/21 18:29 Sodium 139 mmol/L (136-145) 02/05/21 14:48 Corrected Sodium 140 mmol/L (136-145) 02/05/21 14:48 Potassium 3.8 mmol/L (3.5-5.1) 02/05/21 14:48 Chloride 104 mmol/L (98-107) 02/05/21 14:48 Carbon Dioxide 24.9 mmol/L (21-32) 02/05/21 14:48 BUN 29 mg/dL (7-18) H 02/05/21 14:48 Creatinine 1.64 mg/dL (0.70-1.30) H 02/05/21 14:48 Est GFR (MDRD) Af Amer 52 (>60) L 02/05/21 14:48 Est GFR (MDRD) Non-Af 43 (>60) L 02/05/21 14:48 Glucose 130 mg/dL (65-99) H 02/05/21 14:48 Lactic Acid 1.4 mmol/L (0.4-2.0) 02/05/21 14:48 Calcium 9.0 mg/dL (8.5-10.1) 02/05/21 14:48 Corrected Calcium TNP 02/05/21 14:48 Total Bilirubin 0.70 mg/dL (0.2-1.0) 02/05/21 14:48 AST 14 Units/L (15-37) L 02/05/21 14:48 ALT < 6 Units/L (12-78) L 02/05/21 14:48 Alkaline Phosphatase 85 Units/L (46-116) 02/05/21 14:48 Creatine Kinase 50 Units/L (39-308) 02/05/21 14:48 CK-MB (CK-2) 1.0 ng/mL (0-4.0) 02/05/21 14:48 CK/CKMB % Calc 2.0 % (<4) 02/05/21 14:48 Troponin I < 0.02 ng/mL (0-1.5) 02/05/21 14:48 B-Natriuretic Peptide 147 pg/mL (0-79) H 02/05/21 14:48 Total Protein 7.1 g/dL (6.4-8.2) 02/05/21 14:48 Albumin 3.5 g/dL (3.4-5.0) 02/05/21 14:48 Globulin 3.6 g/dL (2.5-4.5) 02/05/21 14:48 Albumin/Globulin Ratio 1.0 Ratio (1.1-2.1) L 02/05/21 14:48 Specimen Type Random urine 02/05/21 14:54 Urine Color Yellow (YELLOW) 02/05/21 14:54 Urine Appearance Clear (CLEAR) 02/05/21 14:54 Urine pH 6.0 (5.0 - 8.0) 02/05/21 14:54 Ur Specific [place] 1.015 (1.000-1.030) 02/05/21 14:54 Urine Protein Negative (NEGATIVE) 02/05/21 14:54 Urine Glucose (UA) Negative (NEGATIVE) 02/05/21 14:54 Urine Ketones Negative (NEGATIVE) 02/05/21 14:54 Urine Occult Blood 1+ (NEGATIVE) 02/05/21 14:54 Urine Nitrite Negative (NEGATIVE) 02/05/21 14:54 Urine Bilirubin Negative (NEGATIVE) 02/05/21 14:54 Urine Urobilinogen Normal (NORMAL) 02/05/21 14:54 Ur Leukocyte Esterase Negative (NEGATIVE) 02/05/21 14:54 Urine RBC 3-5 /HPF (0-3) A 02/05/21 14:54 Urine WBC None seen /HPF (0-5) 02/05/21 14:54 Ur Squamous Epith Cells Rare /HPF (NEGATIVE) 02/05/21 14:54 Amorphous Sediment Trace /HPF (NEGATIVE) 02/05/21 14:54 Urine Bacteria Negative /HPF (NEGATIVE) 02/05/21 14:54 Ur Culture Indicated? No/not indicated 02/05/21 14:54 SARS-CoV-2 (PCR) Negative (NEGATIVE) 02/05/21 14:54 Influenza Type A (PCR) Negative (NEGATIVE) 02/05/21 14:54 Influenza Type B (PCR) Negative (NEGATIVE) 02/05/21 14:54 RSV (PCR) Negative (NEGATIVE) 02/05/21 14:54 Opioid Opioid Risk Tool Age (Kelechi box if 16-45): No History of Preadolescent Sexual Abuse: No Total: 0 Total Score Risk Category: Low Risk Copyright: [facility] predicting aberrant behaviors Diagnosis Discharge Problem: Generalized weakness, Chest pain Pneumonia Qualifiers: Pneumonia type: due to unspecified organism Laterality: bilateral Lung location: lower lobe of lung Qualified Code(s): J18.9 - Pneumonia, unspecified organism Instructions Forms: Precautions for COVID19 Patient Portal Social Distancing
[2021-02-05 13:50] VITALS: BMI 35.5
[2021-02-05 15:16] LABS: BASOPHILS # (AUTO) 0.1 X10^3/uL (0.0-0.1); BASOPHILS % (AUTO) 0.4 % (0.2-1.0); EOSINOPHILS % (AUTO) 0.1 % (0.9-2.9); HEMATOCRIT 40.4 % (42.0-54.0); HEMOGLOBIN 14.2 g/dL (13.5-18.0); LYMPHOCYTES # (AUTO) 1.5 X10^3/uL (1.3-2.9); LYMPHOCYTES % (AUTO) 5.9 % (21.0-51.0); MEAN CORPUSCULAR HGB CONC 35.2 g/dL (33.0-35.0); MEAN CORPUSCULAR VOLUME 93.7 fL (80.0-100.0); MEAN PLATELET VOLUME 7.9 fL (7.4-11.0); MONOCYTES # (AUTO) 1.4 x10^3/uL (0.3-0.8); MONOCYTES % (AUTO) 5.4 % (0.0-13.0); NEUTROPHILS # (AUTO) 22.1 x10^3/uL (2.2-4.8); NEUTROPHILS % (AUTO) 88.2 % (42.0-75.0); PLATELET COUNT 255 X10^3/uL (150.0-450.0); RED BLOOD COUNT 4.31 X10^6/uL (4.7-6.0); RED CELL DISTRIBUTION WIDTH 13.3 % (11.6-16.5); WHITE BLOOD COUNT 25.1 X10^3/uL (3.6-10.0)
--- NOTE | 2021-02-05 15:16 | RAD ---
HISTORYWeek, feverSTUDYChest AP [id number]/15/2020FINDINGSHeart size is enlarged. No congestive heart failure is noted. Hil a are normal. Lungs are hypoinflated. Right basilar lung infiltrate is present suggestive of pneumoni a. Remainder of the lung osman are clear. Bony thorax is unremarkable.IMPRESSIONRight basilar lung i nfiltrate suggestive of pneumoniaHypo inflationCardiomegaly without congestive heart failureElectroni jenn signed by: SOFÍA BORDEN (Feb 05, 2021 15:13:46)
[2021-02-05 15:31] LABS: LACTIC ACID 1.4 mmol/L (0.4-2.0)
[2021-02-05 15:32] LABS: BILIRUBIN,URINE NEGATIVE (NEGATIVE); BLOOD/HEMOGLOBIN,URINE 1+ (NEGATIVE); GLUCOSE, URINE NEGATIVE (NEGATIVE); KETONES,URINE NEGATIVE (NEGATIVE); LEUKOCYTE ESTERASE ,URINE NEGATIVE (NEGATIVE); NITRITES,URINE NEGATIVE (NEGATIVE); PROTEIN,URINE NEGATIVE (NEGATIVE); UROBILINOGEN,URINE NORMAL (NORMAL)
[2021-02-05 15:35] LABS: APPEARANCE,URINE CLEAR (CLEAR); COLOR,URINE YELLOW (YELLOW)
[2021-02-05 15:39] LABS: ALANINE AMINOTRANSFERASE < 6 Units/L (12-78); ALBUMIN 3.5 g/dL (3.4-5.0); ALKALINE PHOSPHATASE 85 Units/L (46-116); ASPARTATE AMINO TRANSFERASE 14 Units/L (15-37); BLOOD UREA NITROGEN 29 mg/dL (7-18); CARBON DIOXIDE 24.9 mmol/L (21-32); CHLORIDE 104 mmol/L (98-107); COR NA(FOR HYPERGLY) 140 mmol/L (136-145); CREATINE KINASE 50 Units/L (39-308); CREATININE 1.64 mg/dL (0.70-1.30); SODIUM 139 mmol/L (136-145); TOTAL PROTEIN 7.1 g/dL (6.4-8.2); TROPONIN I < 0.02 ng/mL (0-1.5); eGFR NON BLACK RACES 43 (>60)
[2021-02-05 15:42] LABS: BAND NEUTROPHILS % 5 % (0-10); PLATELET MORPHOLOGY COMMENT NORMAL (NORMAL)
[2021-02-05 15:47] LABS: AMORPHOUS SEDIMENT,UR TRACE /HPF (NEGATIVE); BACTERIA,URINE NEGATIVE /HPF (NEGATIVE); SQUAMOUS EPITHELIAL CELL,UR RARE /HPF (NEGATIVE)
[2021-02-05] MEDS ORDERED: LEVAQUIN PREMIX IV 750 MG 750 MG/150 ML BAG IV ONE ×2 (16:43→16:58)
[2021-02-05] MEDS ORDERED: NS 1000 ML 1,000 ML ONE (17:04)
[2021-02-05] MEDS: NS 1000 ML 1,000 ML IV SCH (17:14)
[2021-02-05 18:36] LABS: ABG ALLEN TEST POS; ABG BASE EXCESS -2.2 mmol/L (-2.0-2.0); ABG HCO3 21.1 mmol/L (22-26)
[2021-02-05] MEDS ORDERED: NIFEDIPINE 60 MG PO SCH (23:49)
[2021-02-05] MEDS ORDERED: THEOPHYLLINE 300 MG PO SCH (23:49)
[2021-02-05] MEDS ORDERED: LASIX PO PRN (23:49)
[2021-02-06] MEDS: MEGACE PO SCH ×3 (04:12→21:39)
[2021-02-06] MEDS: CRESTOR TAB 10 MG PO SCH ×2 (04:13→21:39)
[2021-02-06] MEDS ORDERED: VANCOMYCIN IV *PREMIX 1 G/200 ML BAG 1 G/200 ML PIGGYBACK IV ONE (04:15)
[2021-02-06] MEDS: VANCOMYCIN IV *PREMIX 1 G/200 ML BAG 1 G/200 ML PIGGYBACK IV SCH ×2 (04:18→04:22)
[2021-02-06] MEDS ORDERED: ATIVAN TAB 1 MG ONE (04:20)
[2021-02-06] MEDS: ATIVAN TAB 1 MG PO PRN (04:22)
[2021-02-06] MEDS ORDERED: VANCOMYCIN IV *PREMIX 1.5 G/300 ML BAG 1.5 G/300 ML PIGGYBACK IV SCH (05:00)
[2021-02-06] MEDS ORDERED: VANCOMYCIN IV *PREMIX 1 G/200 ML BAG 1 G/200 ML PIGGYBACK IV SCH (05:00)
[2021-02-06] MEDS: ASPIRIN EC 81 MG PO SCH ×2 (05:55→21:38)
[2021-02-06 06:03] LABS: BASOPHILS % (AUTO) 0.3 % (0.2-1.0); EOSINOPHILS % (AUTO) 0.1 % (0.9-2.9); HEMATOCRIT 38.4 % (42.0-54.0); HEMOGLOBIN 13.4 g/dL (13.5-18.0); LYMPHOCYTES # (AUTO) 1.4 X10^3/uL (1.3-2.9); LYMPHOCYTES % (AUTO) 8.5 % (21.0-51.0); MEAN CORPUSCULAR HEMOGLOBIN 32.5 pg (27.0-34.0); MEAN CORPUSCULAR HGB CONC 34.8 g/dL (33.0-35.0); MEAN CORPUSCULAR VOLUME 93.5 fL (80.0-100.0); MEAN PLATELET VOLUME 8.1 fL (7.4-11.0); MONOCYTES # (AUTO) 0.9 x10^3/uL (0.3-0.8); MONOCYTES % (AUTO) 5.2 % (0.0-13.0); NEUTROPHILS # (AUTO) 14.1 x10^3/uL (2.2-4.8); NEUTROPHILS % (AUTO) 85.9 % (42.0-75.0); PLATELET COUNT 253 X10^3/uL (150.0-450.0); RED BLOOD COUNT 4.11 X10^6/uL (4.7-6.0); RED CELL DISTRIBUTION WIDTH 13.5 % (11.6-16.5); WHITE BLOOD COUNT 16.4 X10^3/uL (3.6-10.0)
[2021-02-06 06:30] LABS: ALBUMIN 3.1 g/dL (3.4-5.0); CALCIUM 8.7 mg/dL (8.5-10.1); CARBON DIOXIDE 25.9 mmol/L (21-32); COR CA(FOR HYPOALB) 9.4 mg/dL (8.5-10.1); CREATININE 1.6 mg/dL (0.70-1.30); TOTAL PROTEIN 6.7 g/dL (6.4-8.2)
[2021-02-06 07:08] LABS: CKMB % 1.9 % (<4); CREATINE KINASE 64 Units/L (39-308); CREATINE KINASE MB 1.2 ng/mL (0-4.0); TROPONIN I < 0.02 ng/mL (0-1.5)
[2021-02-06] MEDS ORDERED: MICRO K EXTEN CAP 10 MEQ PO ONE (07:47)
[2021-02-06] MEDS ORDERED: VIBRAMYCIN PO ONE (07:47)
[2021-02-06] MEDS ORDERED: PLAVIX ONE (07:47)
[2021-02-06] MEDS ORDERED: DUONEB 0.5 MG/3 MG (3 mL) NEB SCH (09:00)
[2021-02-06] MEDS ORDERED: FOLIC ACID TAB 1 MG PO SCH (09:00)
[2021-02-06] MEDS ORDERED: CLOPIDOGREL BISULFATE 75 MG PO SCH (09:00)
[2021-02-06] MEDS ORDERED: THEO-DUR TAB 300 MG 12-HR PO SCH (09:00)
[2021-02-06] MEDS ORDERED: VITAMIN D3 125 mcg (5,000 UNITS) PO SCH (09:00)
[2021-02-06] MEDS: MICRO K EXTEN CAP 10 MEQ PO SCH (09:40)
[2021-02-06] MEDS: PLAVIX PO SCH (09:41)
[2021-02-06] MEDS: VIBRAMYCIN 100 MG in D5W 250 ML IV 250 ML IV SCH ×2 (09:42→21:48)
[2021-02-06] MEDS: ARICEPT TAB 10 MG PO SCH (09:43)
[2021-02-06] MEDS: VSL#3 PO SCH (09:43)
[2021-02-06] MEDS: SINEMET (PLAIN) 25/100 MG PO SCH (09:44)
[2021-02-06] MEDS: TOPROL XL PO SCH (09:45)
[2021-02-06] MEDS: SINGULAIR TAB 10 MG PO SCH (09:46)
[2021-02-06] MEDS: PROCARDIA XL 24-hr PO SCH ×2 (09:47→21:40)
[2021-02-06] MEDS: VITAMIN B-12 PO SCH (09:50)
[2021-02-06] MEDS: PULMICORT NEB TX 0.5 MG NEB SCH ×2 (09:53→21:42)
[2021-02-06] MEDS ORDERED: LOVENOX INJ 40 MG SYR SC ONE (11:46)
[2021-02-06] MEDS: LOVENOX INJ 40 MG SYR SC SCH (11:54)
[2021-02-06] MEDS ORDERED: XOPENEX 1.25 MG/3 ML NEBULE NEB ONE ×2 (12:02→16:13)
[2021-02-06] MEDS: XOPENEX 1.25 MG/3 ML NEBULE NEB SCH ×2 (12:05→16:16)
--- NOTE | 2021-02-06 13:50 | DR.H&P ---
H&P History & Physical for Day of: H&P Date: 02/06/21 Chief Complaint Chief Complaint: Cough and congestion Weakness Allergies Allergies Allergy/AdvReac Type Severity Reaction Status Date / Time albuterol Allergy Verified 02/05/21 13:11 banana Allergy Verified 02/05/21 13:11 cefaclor [From Ceclor] Allergy Verified 02/05/21 13:11 corn Allergy Verified 02/05/21 13:11 fosinopril [From Monopril] Allergy Verified 02/05/21 13:11 homatropine Allergy Verified 02/05/21 13:11 [From Homatropaire] hydrocodone Allergy Verified 02/05/21 13:11 ipratropium [From Atrovent] Allergy Verified 02/05/21 13:11 irbesartan [From Avapro] Allergy Verified 02/05/21 13:11 isosorbide Allergy Verified 02/05/21 13:11 Milk Containing Products Allergy Verified 02/05/21 13:11 morphine Allergy Verified 02/05/21 13:11 salmeterol [From Serevent] Allergy Verified 02/05/21 13:11 tamsulosin Allergy Verified 02/05/21 13:11 tramadol Allergy Verified 02/05/21 13:11 valsartan [From Diovan] Allergy Verified 02/05/21 13:11 History of Present Illness History of Present Illness: Pt is a 81 year old male past medical history of CH F, COPD(~BL 2L), Dementia, HTN, presenting after failing outpatient treatment for persistent cough with now associated weakness. Labs/imaging: Wbc 25>16.4, Hgb 14.2, Plt 255, Na 141, K 3.6, Creatinine 1.60, Glucose 131, LA 1.4, Troponin negative, BNP 147, ABG: pH 7.44, pCO2 31, pO2 77, HCO3 21, O2sat 96% on FiO2 32%. UA negative, COVID-19/Flu/RSV negative, CXR: Right basilar lung infiltrate suggestive of pneumonia. Hypo inflation. Cardiomegaly without congestive heart failure. Blood culture pending. Pt admitted for pneumonia, received Levaquin x 1 dose in ED, pt was previously prescribed Levaquin outpatient. Will change antibiotics to Vancomycin and Doxycycline. Order pneumonia protocol including pulmicort and sputum cultures. Will get Echo to evaluate elevated BNP. Restart home medications. Will continue to monitor and follow up labs/imaging in the morning. 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 Family History Family Medical History: Diabetes Mellitus, Cancer and [place] Social History Does patient currently use any type of tobacco product: No Have you used tobacco products in the last 12 months: No Type of Tobacco Use: None Alcohol Use: None Drug Use: None Medications Home Medications: albuterol Allergy (Verified 02/05/21 13:11) banana Allergy (Verified 02/05/21 13:11) cefaclor [From Ceclor] Allergy (Verified 02/05/21 13:11) corn Allergy (Verified 02/05/21 13:11) fosinopril [From Monopril] Allergy (Verified 02/05/21 13:11) homatropine [From Homatropaire] Allergy (Verified 02/05/21 13:11) hydrocodone Allergy (Verified 02/05/21 13:11) ipratropium [From Atrovent] Allergy (Verified 02/05/21 13:11) irbesartan [From Avapro] Allergy (Verified 02/05/21 13:11) isosorbide Allergy (Verified 02/05/21 13:11) Milk Containing Products Allergy (Verified 02/05/21 13:11) morphine Allergy (Verified 02/05/21 13:11) salmeterol [From Serevent] Allergy (Verified 02/05/21 13:11) tamsulosin Allergy (Verified 02/05/21 13:11) tramadol Allergy (Verified 02/05/21 13:11) valsartan [From Diovan] Allergy (Verified 02/05/21 13:11) CONTINUE taking the following medications levofloxacin 500 mg PO DAILY 02/05/21 [History] lorazepam 1 mg PO HS PRN 02/05/21 [History] Labs Result Diagrams: 02/06/21 05:10 02/06/21 05:10 Labs: Laboratory WBC 16.4 X10^3/uL (3.6-10.0) H D 02/06/21 05:10 RBC 4.11 X10^6/uL (4.7-6.0) L 02/06/21 05:10 Hgb 13.4 g/dL (13.5-18.0) L 02/06/21 05:10 Hct 38.4 % (42.0-54.0) L 02/06/21 05:10 MCV 93.5 fL (80.0-100.0) 02/06/21 05:10 MCH 32.5 pg (27.0-34.0) 02/06/21 05:10 MCHC 34.8 g/dL (33.0-35.0) 02/06/21 05:10 RDW 13.5 % (11.6-16.5) 02/06/21 05:10 Plt Count 253 X10^3/uL (150.0-450.0) 02/06/21 05:10 Plt Count Comment Adequate (ADEQUATE) 02/05/21 14:48 MPV 8.1 fL (7.4-11.0) 02/06/21 05:10 Neut % (Auto) 85.9 % (42.0-75.0) H 02/06/21 05:10 Lymph % (Auto) 8.5 % (21.0-51.0) L 02/06/21 05:10 [place] % (Auto) 5.2 % (0.0-13.0) 02/06/21 05:10 Eos % (Auto) 0.1 % (0.9-2.9) L 02/06/21 05:10 Baso % (Auto) 0.3 % (0.2-1.0) 02/06/21 05:10 Neut # (Auto) 14.1 x10^3/uL (2.2-4.8) H 02/06/21 05:10 Lymph # (Auto) 1.4 X10^3/uL (1.3-2.9) 02/06/21 05:10 [place] # (Auto) 0.9 x10^3/uL (0.3-0.8) H 02/06/21 05:10 Eos # (Auto) 0.0 x10^3/uL (0.0-0.2) 02/06/21 05:10 Baso # (Auto) 0.0 X10^3/uL (0.0-0.1) 02/06/21 05:10 Absolute Nucleated RBC 0.0 /100WBC 02/06/21 05:10 Total Counted 100 02/05/21 14:48 Neutrophils % (Manual) 84 % (39-76) H 02/05/21 14:48 Band Neutrophils % 5 % (0-10) 02/05/21 14:48 Lymphocytes % (Manual) 6 % (13-43) L 02/05/21 14:48 Monocytes % (Manual) 5 % (4-9) 02/05/21 14:48 Plt Morphology Comment Normal (NORMAL) 02/05/21 14:48 RBC Morphology Normal (NORMAL) 02/05/21 14:48 Sample Site Right radial 02/05/21 18:29 ABG pH 7.440 (7.35-7.45) 02/05/21 18:29 ABG pCO2 31.0 mmHg (35.0-45.0) L 02/05/21 18:29 ABG pO2 77.0 mmHg (80.0-100.0) L 02/05/21 18:29 ABG HCO3 21.1 mmol/L (22-26) L 02/05/21 18:29 ABG O2 Saturation 96.0 % (90-100) 02/05/21 18:29 ABG Base Excess -2.2 mmol/L (-2.0-2.0) L 02/05/21 18:29 Beka Test Pos 02/05/21 18:29 A-a Gradient 112.0 mmHg 02/05/21 18:29 FiO2 32.0 02/05/21 18:29 Blood Gas Comments Nany well aw 02/05/21 18:29 Sodium 141 mmol/L (136-145) 02/06/21 05:10 Corrected Sodium 142 mmol/L (136-145) 02/06/21 05:10 Potassium 3.6 mmol/L (3.5-5.1) 02/06/21 05:10 Chloride 106 mmol/L (98-107) 02/06/21 05:10 Carbon Dioxide 25.9 mmol/L (21-32) 02/06/21 05:10 BUN 31 mg/dL (7-18) H 02/06/21 05:10 Creatinine 1.60 mg/dL (0.70-1.30) H 02/06/21 05:10 Est GFR (MDRD) Af Amer 53 (>60) L 02/06/21 05:10 Est GFR (MDRD) Non-Af 44 (>60) L 02/06/21 05:10 Glucose 131 mg/dL (65-99) H 02/06/21 05:10 Lactic Acid 1.4 mmol/L (0.4-2.0) 02/05/21 14:48 Calcium 8.7 mg/dL (8.5-10.1) 02/06/21 05:10 Corrected Calcium 9.4 mg/dL (8.5-10.1) 02/06/21 05:10 Total Bilirubin 0.60 mg/dL (0.2-1.0) 02/06/21 05:10 AST 13 Units/L (15-37) L 02/06/21 05:10 ALT 16 Units/L (12-78) 02/06/21 05:10 Alkaline Phosphatase 73 Units/L (46-116) 02/06/21 05:10 Creatine Kinase 64 Units/L (39-308) 02/06/21 05:10 CK-MB (CK-2) 1.2 ng/mL (0-4.0) 02/06/21 05:10 CK/CKMB % Calc 1.9 % (<4) 02/06/21 05:10 Troponin I < 0.02 ng/mL (0-1.5) 02/06/21 05:10 B-Natriuretic Peptide 147 pg/mL (0-79) H 02/05/21 14:48 Total Protein 6.7 g/dL (6.4-8.2) 02/06/21 05:10 Albumin 3.1 g/dL (3.4-5.0) L 02/06/21 05:10 Globulin 3.6 g/dL (2.5-4.5) 02/06/21 05:10 Albumin/Globulin Ratio 0.9 Ratio (1.1-2.1) L 02/06/21 05:10 Specimen Type Random urine 02/05/21 14:54 Urine Color Yellow (YELLOW) 02/05/21 14:54 Urine Appearance Clear (CLEAR) 02/05/21 14:54 Urine pH 6.0 (5.0 - 8.0) 02/05/21 14:54 Ur Specific [place] 1.015 (1.000-1.030) 02/05/21 14:54 Urine Protein Negative (NEGATIVE) 02/05/21 14:54 Urine Glucose (UA) Negative (NEGATIVE) 02/05/21 14:54 Urine Ketones Negative (NEGATIVE) 02/05/21 14:54 Urine Occult Blood 1+ (NEGATIVE) 02/05/21 14:54 Urine Nitrite Negative (NEGATIVE) 02/05/21 14:54 Urine Bilirubin Negative (NEGATIVE) 02/05/21 14:54 Urine Urobilinogen Normal (NORMAL) 02/05/21 14:54 Ur Leukocyte Esterase Negative (NEGATIVE) 02/05/21 14:54 Urine RBC 3-5 /HPF (0-3) A 02/05/21 14:54 Urine WBC None seen /HPF (0-5) 02/05/21 14:54 Ur Squamous Epith Cells Rare /HPF (NEGATIVE) 02/05/21 14:54 Amorphous Sediment Trace /HPF (NEGATIVE) 02/05/21 14:54 Urine Bacteria Negative /HPF (NEGATIVE) 02/05/21 14:54 Ur Culture Indicated? No/not indicated 02/05/21 14:54 Theophylline 3.9 ug/mL (10-20) L 02/06/21 05:10 SARS-CoV-2 (PCR) Negative (NEGATIVE) 02/05/21 14:54 Influenza Type A (PCR) Negative (NEGATIVE) 02/05/21 14:54 Influenza Type B (PCR) Negative (NEGATIVE) 02/05/21 14:54 RSV (PCR) Negative (NEGATIVE) 02/05/21 14:54 Review of Systems Constitutional: Weakness; denies Fever and Chills Eyes: No Symptoms Reported ENT: No Symptoms Reported Respiratory: Cough and Shortness of Breath Cardiovascular: No Symptoms Reported Gastrointestinal: No Symptoms Reported Genitourinary: No Symptoms Reported Musculoskeletal: No Symptoms Reported Skin: No Symptoms Reported Neurological: Other (Dementia) Physical Exam Vital Signs: Temperature 98.3 F Pulse Rate [Apical] 96 Pulse Rate [Left] 98 Pulse Rate 82 Respiratory Rate 26 Blood Pressure [Left Arm] 145/70 Blood Pressure 120/69 O2 Sat by Pulse Oximetry 94 Oriented: Other (Dementia) Eyes: Normal Ear: Normal Nose: Normal Throat: Normal Respiratory: Diminished Throughout and RLL Rales Cardiovascular: Normal : Normal Auscultation: Bowel Sounds: Normal Palpation: Normal Tenderness: Normal Skin: Normal Musculoskeletal: Normal Psychiatric: Other (Dementia) Mood Description: Calm Affect: Flat Assessment/Plan (1) Pneumonia: Qualifiers: Laterality: bilateral Lung location: lower lobe of lung Pneumonia type: due to unspecified organism Qualified Code(s): J18.9 - Pneumonia, unspecified organism Status: Acute (2) COPD (chronic obstructive pulmonary disease): Status: Chronic (3) Generalized weakness: Status: Acute Review H&P Reviewed: Yes Patient was examined?: Yes
[2021-02-06] MEDS: NS 1000 ML 1,000 ML IV SCH (18:22)
[2021-02-06] MEDS: THEO-DUR TAB 300 MG 12-HR PO SCH (21:40)
[2021-02-07] MEDS: XOPENEX 1.25 MG/3 ML NEBULE NEB SCH ×4 (00:22→16:45)
[2021-02-07 05:23] LABS: BASOPHILS # (AUTO) 0.1 X10^3/uL (0.0-0.1); BASOPHILS % (AUTO) 0.5 % (0.2-1.0); EOSINOPHILS # (AUTO) 0.1 x10^3/uL (0.0-0.2); HEMATOCRIT 35.2 % (42.0-54.0); HEMOGLOBIN 12.5 g/dL (13.5-18.0); LYMPHOCYTES # (AUTO) 1.7 X10^3/uL (1.3-2.9); MEAN CORPUSCULAR HEMOGLOBIN 32.9 pg (27.0-34.0); MEAN CORPUSCULAR HGB CONC 35.6 g/dL (33.0-35.0); MEAN CORPUSCULAR VOLUME 92.3 fL (80.0-100.0); MONOCYTES # (AUTO) 0.9 x10^3/uL (0.3-0.8); MONOCYTES % (AUTO) 6.2 % (0.0-13.0); NEUTROPHILS # (AUTO) 11.2 x10^3/uL (2.2-4.8); NEUTROPHILS % (AUTO) 80.3 % (42.0-75.0); PLATELET COUNT 249 X10^3/uL (150.0-450.0); RED BLOOD COUNT 3.81 X10^6/uL (4.7-6.0); RED CELL DISTRIBUTION WIDTH 13.5 % (11.6-16.5); WHITE BLOOD COUNT 13.9 X10^3/uL (3.6-10.0)
[2021-02-07 05:31] LABS: ALANINE AMINOTRANSFERASE 13 Units/L (12-78); ALBUMIN 2.7 g/dL (3.4-5.0); ALKALINE PHOSPHATASE 60 Units/L (46-116); ASPARTATE AMINO TRANSFERASE 12 Units/L (15-37); BLOOD UREA NITROGEN 28 mg/dL (7-18); CALCIUM 8.6 mg/dL (8.5-10.1); CARBON DIOXIDE 24.5 mmol/L (21-32); CHLORIDE 109 mmol/L (98-107); COR CA(FOR HYPOALB) 9.6 mg/dL (8.5-10.1); COR NA(FOR HYPERGLY) 143 mmol/L (136-145); CREATININE 1.19 mg/dL (0.70-1.30); SODIUM 142 mmol/L (136-145); TOTAL PROTEIN 6.1 g/dL (6.4-8.2); eGFR NON BLACK RACES > 60 (>60)
--- NOTE | 2021-02-07 06:19 | RAD ---
HISTORYPNEUMONIA F/USTUDYCHEST, 1 [id number]/2021.TECHNIQUEAP view of the chestFINDINGSCardiac silhouette is mildly enlarged. There is no significant change in bilateral scattered airspace opacities. No definite pleural effusion or pneumothorax.IMPRESSIONNo significant change in bilateral pneumonia.Electronically signed by: Jared Golden (Feb 07, 2021 06:17:10)
[2021-02-07] MEDS ORDERED: VANCOMYCIN IV *PREMIX 1.25 G/250 ML BAG 1.25 G/250 ML PIGGYBACK IV SCH (09:00)
[2021-02-07] MEDS: VITAMIN B-12 PO SCH (09:32)
[2021-02-07] MEDS: VIBRAMYCIN 100 MG in D5W 250 ML IV 250 ML IV SCH ×2 (09:32→21:06)
[2021-02-07] MEDS: SINEMET (PLAIN) 25/100 MG PO SCH (09:32)
[2021-02-07] MEDS: LOVENOX INJ 40 MG SYR SC SCH (09:33)
[2021-02-07] MEDS: PLAVIX PO SCH (09:33)
[2021-02-07] MEDS: VSL#3 PO SCH (09:34)
[2021-02-07] MEDS: SINGULAIR TAB 10 MG PO SCH (09:34)
[2021-02-07] MEDS: PULMICORT NEB TX 0.5 MG NEB SCH ×2 (09:35→20:35)
[2021-02-07] MEDS: ARICEPT TAB 10 MG PO SCH (09:35)
[2021-02-07] MEDS: PROCARDIA XL 24-hr PO SCH ×2 (09:35→21:12)
[2021-02-07] MEDS: MICRO K EXTEN CAP 10 MEQ PO SCH (09:35)
[2021-02-07] MEDS: MEGACE PO SCH ×2 (09:35→21:09)
[2021-02-07] MEDS: TOPROL XL PO SCH (09:36)
[2021-02-07] MEDS: THEO-DUR TAB 300 MG 12-HR PO SCH ×2 (09:36→21:10)
[2021-02-07] MEDS: FOLIC ACID TAB 1 MG PO SCH (09:36)
--- NOTE | 2021-02-07 13:46 | PCM.PROG ---
Progress Note Progress Note for Day of Date of Exam: 02/07/21 Subjective Subjective: Pt is a 81 year old male past medical history of CHF, COPD(~BL 2L), Dementia, HTN, admitted for pneumonia. This morning patient resting comfortably in bed. He is on 3L O2 nasal cannula. No acute events overnight. Labs/imaging: Wbc 13.9, Hgb 12.5, Plt 249, Na 142, K 3.4, Creatinine 1.19, Glucose 126, CXR: No significant change in bilateral pneumonia. Blood culture NGTD. Echo pending. Continue antibiotics: IV Vancomycin and Doxycycline. Pulmicort BID. Sputum cultures not obtained. Order Physical therapy. Otherwise continue current treatment plan. Will continue to monitor and follow up labs/imaging in the morning. Past Medical Family Social History Past Med/Fam/Surg Hx: No changes since H&P Allergies: Allergies albuterol Allergy (Verified 02/05/21 13:11) banana Allergy (Verified 02/05/21 13:11) cefaclor [From Ceclor] Allergy (Verified 02/05/21 13:11) corn Allergy (Verified 02/05/21 13:11) fosinopril [From Monopril] Allergy (Verified 02/05/21 13:11) homatropine [From Homatropaire] Allergy (Verified 02/05/21 13:11) hydrocodone Allergy (Verified 02/05/21 13:11) ipratropium [From Atrovent] Allergy (Verified 02/05/21 13:11) irbesartan [From Avapro] Allergy (Verified 02/05/21 13:11) isosorbide Allergy (Verified 02/05/21 13:11) Milk Containing Products Allergy (Verified 02/05/21 13:11) morphine Allergy (Verified 02/05/21 13:11) salmeterol [From Serevent] Allergy (Verified 02/05/21 13:11) tamsulosin Allergy (Verified 02/05/21 13:11) tramadol Allergy (Verified 02/05/21 13:11) valsartan [From Diovan] Allergy (Verified 02/05/21 13:11) Review of Systems ROS: No change since H&P Vital Signs and I&O's Vital Signs: Temperature 98.0 F Pulse Rate [Apical] 115 Pulse Rate [Left] 98 Pulse Rate 82 Respiratory Rate 34 Blood Pressure [Left Arm] 123/66 Blood Pressure 120/69 O2 Sat by Pulse Oximetry 93 Intake and Output: Intake & Output 02/04/21 02/05/21 02/06/21 02/07/21 23:59 23:59 23:59 23:59 Intake Total 180 / 180 1154 / 1154 831 / 831 Balance 180 / 180 1154 / 1154 831 / 831 Physical Exam Oriented: Other (Dementia) Eyes: Normal Ear: Normal Nose: Normal Throat: Normal Respiratory: Diminished Cardiovascular: Normal : Normal Auscultation: Bowel Sounds: Normal Tenderness: Normal Skin: Normal Musculoskeletal: Normal Psychiatric: Other (Dementia) Mood Description: Calm Affect: Flat Speech Pattern: Unclear and Delayed Laboratory and Diagnostics Result Diagrams: 02/07/21 04:43 02/07/21 04:43 Labs: 02/05/21 14:50 Blood Blood Culture - Preliminary 02/05/21 14:48 Blood Blood Culture - Preliminary Laboratory WBC 13.9 X10^3/uL (3.6-10.0) H 02/07/21 04:43 RBC 3.81 X10^6/uL (4.7-6.0) L 02/07/21 04:43 Hgb 12.5 g/dL (13.5-18.0) L 02/07/21 04:43 Hct 35.2 % (42.0-54.0) L 02/07/21 04:43 MCV 92.3 fL (80.0-100.0) 02/07/21 04:43 MCH 32.9 pg (27.0-34.0) 02/07/21 04:43 MCHC 35.6 g/dL (33.0-35.0) H 02/07/21 04:43 RDW 13.5 % (11.6-16.5) 02/07/21 04:43 Plt Count 249 X10^3/uL (150.0-450.0) 02/07/21 04:43 Plt Count Comment Adequate (ADEQUATE) 02/05/21 14:48 MPV 8.0 fL (7.4-11.0) 02/07/21 04:43 Neut % (Auto) 80.3 % (42.0-75.0) H 02/07/21 04:43 Lymph % (Auto) 12.0 % (21.0-51.0) L 02/07/21 04:43 [place] % (Auto) 6.2 % (0.0-13.0) 02/07/21 04:43 Eos % (Auto) 1.0 % (0.9-2.9) 02/07/21 04:43 Baso % (Auto) 0.5 % (0.2-1.0) 02/07/21 04:43 Neut # (Auto) 11.2 x10^3/uL (2.2-4.8) H 02/07/21 04:43 Lymph # (Auto) 1.7 X10^3/uL (1.3-2.9) 02/07/21 04:43 [place] # (Auto) 0.9 x10^3/uL (0.3-0.8) H 02/07/21 04:43 Eos # (Auto) 0.1 x10^3/uL (0.0-0.2) 02/07/21 04:43 Baso # (Auto) 0.1 X10^3/uL (0.0-0.1) 02/07/21 04:43 Absolute Nucleated RBC 0.0 /100WBC 02/07/21 04:43 Total Counted 100 02/05/21 14:48 Neutrophils % (Manual) 84 % (39-76) H 02/05/21 14:48 Band Neutrophils % 5 % (0-10) 02/05/21 14:48 Lymphocytes % (Manual) 6 % (13-43) L 02/05/21 14:48 Monocytes % (Manual) 5 % (4-9) 02/05/21 14:48 Plt Morphology Comment Normal (NORMAL) 02/05/21 14:48 RBC Morphology Normal (NORMAL) 02/05/21 14:48 Sample Site Right radial 02/05/21 18:29 ABG pH 7.440 (7.35-7.45) 02/05/21 18:29 ABG pCO2 31.0 mmHg (35.0-45.0) L 02/05/21 18:29 ABG pO2 77.0 mmHg (80.0-100.0) L 02/05/21 18:29 ABG HCO3 21.1 mmol/L (22-26) L 02/05/21 18:29 ABG O2 Saturation 96.0 % (90-100) 02/05/21 18:29 ABG Base Excess -2.2 mmol/L (-2.0-2.0) L 02/05/21 18:29 [place] Test Pos 02/05/21 18:29 A-a Gradient 112.0 mmHg 02/05/21 18:29 FiO2 32.0 02/05/21 18:29 Blood Gas Comments Nany well aw 02/05/21 18:29 Sodium 142 mmol/L (136-145) 02/07/21 04:43 Corrected Sodium 143 mmol/L (136-145) 02/07/21 04:43 Potassium 3.4 mmol/L (3.5-5.1) L 02/07/21 04:43 Chloride 109 mmol/L (98-107) H 02/07/21 04:43 Carbon Dioxide 24.5 mmol/L (21-32) 02/07/21 04:43 BUN 28 mg/dL (7-18) H 02/07/21 04:43 Creatinine 1.19 mg/dL (0.70-1.30) 02/07/21 04:43 Est GFR (MDRD) Af Amer > 60 (>60) 02/07/21 04:43 Est GFR (MDRD) Non-Af > 60 (>60) 02/07/21 04:43 Glucose 126 mg/dL (65-99) H 02/07/21 04:43 Lactic Acid 1.4 mmol/L (0.4-2.0) 02/05/21 14:48 Calcium 8.6 mg/dL (8.5-10.1) 02/07/21 04:43 Corrected Calcium 9.6 mg/dL (8.5-10.1) 02/07/21 04:43 Total Bilirubin 0.40 mg/dL (0.2-1.0) 02/07/21 04:43 AST 12 Units/L (15-37) L 02/07/21 04:43 ALT 13 Units/L (12-78) 02/07/21 04:43 Alkaline Phosphatase 60 Units/L (46-116) 02/07/21 04:43 Creatine Kinase 64 Units/L (39-308) 02/06/21 05:10 CK-MB (CK-2) 1.2 ng/mL (0-4.0) 02/06/21 05:10 CK/CKMB % Calc 1.9 % (<4) 02/06/21 05:10 Troponin I < 0.02 ng/mL (0-1.5) 02/06/21 05:10 B-Natriuretic Peptide 147 pg/mL (0-79) H 02/05/21 14:48 Total Protein 6.1 g/dL (6.4-8.2) L 02/07/21 04:43 Albumin 2.7 g/dL (3.4-5.0) L 02/07/21 04:43 Globulin 3.4 g/dL (2.5-4.5) 02/07/21 04:43 Albumin/Globulin Ratio 0.8 Ratio (1.1-2.1) L 02/07/21 04:43 Specimen Type Random urine 02/05/21 14:54 Urine Color Yellow (YELLOW) 02/05/21 14:54 Urine Appearance Clear (CLEAR) 02/05/21 14:54 Urine pH 6.0 (5.0 - 8.0) 02/05/21 14:54 Ur Specific [place] 1.015 (1.000-1.030) 02/05/21 14:54 Urine Protein Negative (NEGATIVE) 02/05/21 14:54 Urine Glucose (UA) Negative (NEGATIVE) 02/05/21 14:54 Urine Ketones Negative (NEGATIVE) 02/05/21 14:54 Urine Occult Blood 1+ (NEGATIVE) 02/05/21 14:54 Urine Nitrite Negative (NEGATIVE) 02/05/21 14:54 Urine Bilirubin Negative (NEGATIVE) 02/05/21 14:54 Urine Urobilinogen Normal (NORMAL) 02/05/21 14:54 Ur Leukocyte Esterase Negative (NEGATIVE) 02/05/21 14:54 Urine RBC 3-5 /HPF (0-3) A 02/05/21 14:54 Urine WBC None seen /HPF (0-5) 02/05/21 14:54 Ur Squamous Epith Cells Rare /HPF (NEGATIVE) 02/05/21 14:54 Amorphous Sediment Trace /HPF (NEGATIVE) 02/05/21 14:54 Urine Bacteria Negative /HPF (NEGATIVE) 02/05/21 14:54 Ur Culture Indicated? No/not indicated 02/05/21 14:54 Theophylline 3.9 ug/mL (10-20) L 02/06/21 05:10 SARS-CoV-2 (PCR) Negative (NEGATIVE) 02/05/21 14:54 Influenza Type A (PCR) Negative (NEGATIVE) 02/05/21 14:54 Influenza Type B (PCR) Negative (NEGATIVE) 02/05/21 14:54 RSV (PCR) Negative (NEGATIVE) 02/05/21 14:54 Plan (1) Pneumonia: Status: Acute Qualifiers: Laterality: bilateral Lung location: lower lobe of lung Pneumonia type: due to unspecified organism Qualified Code(s): J18.9 - Pneumonia, unspecified organism (2) COPD (chronic obstructive pulmonary disease): Status: Chronic (3) Generalized weakness: Status: Acute
[2021-02-07] MEDS ORDERED: SALINE 3% 15 ML NEB TX ONE (16:39)
[2021-02-07] MEDS: ROBITUSSIN (PLAIN) PO SCH ×2 (17:19→21:16)
[2021-02-07] MEDS: ASPIRIN EC 81 MG PO SCH (21:10)
[2021-02-07] MEDS: CRESTOR TAB 10 MG PO SCH (21:12)
[2021-02-08] MEDS: ATIVAN TAB 1 MG PO PRN (00:58)
--- NOTE | 2021-02-08 04:17 | RAD ---
HISTORYTACHPNEASTUDYCHEST, 1 [id number]/28/2021FINDINGSThe trachea is midline. The cardiac silhouette is mildly enlarged. Bilateral scattered airspace opacities unchanged. No pneumothorax. . The lungs are clear without focal infiltrate or effusion. The bony thorax .IMPRESSIONbilateral pneumonic infiltrates unchanged from 02/07/2021lectronically signed by: Owen Heart (Feb 08, 2021 04:15:20)
[2021-02-08] MEDS: XOPENEX 1.25 MG/3 ML NEBULE NEB SCH ×4 (05:24→19:02)
[2021-02-08] MEDS ORDERED: SOLU-Medrol 40 MG VIAL ONE (05:29)
[2021-02-08] MEDS ORDERED: LOPRESSOR INJ 5 MG AMP ONE (05:29)
[2021-02-08] MEDS ORDERED: SOLU-Medrol 40 MG VIAL IVP ONE (05:30)
[2021-02-08] MEDS ORDERED: LOPRESSOR INJ 5 MG AMP IVP ONE (05:33)
[2021-02-08 05:37] LABS: ABG ALLEN TEST POS; ABG HCO3 21.8 mmol/L (22-26)
[2021-02-08 06:09] LABS: BASOPHILS # (AUTO) 0.1 X10^3/uL (0.0-0.1); BASOPHILS % (AUTO) 0.3 % (0.2-1.0); EOSINOPHILS # (AUTO) 0.1 x10^3/uL (0.0-0.2); EOSINOPHILS % (AUTO) 0.5 % (0.9-2.9); HEMATOCRIT 40.8 % (42.0-54.0); HEMOGLOBIN 14.2 g/dL (13.5-18.0); LYMPHOCYTES # (AUTO) 1.6 X10^3/uL (1.3-2.9); LYMPHOCYTES % (AUTO) 8.8 % (21.0-51.0); MEAN CORPUSCULAR HGB CONC 34.8 g/dL (33.0-35.0); MEAN CORPUSCULAR VOLUME 94.8 fL (80.0-100.0); MONOCYTES # (AUTO) 1.1 x10^3/uL (0.3-0.8); NEUTROPHILS # (AUTO) 15.7 x10^3/uL (2.2-4.8); NEUTROPHILS % (AUTO) 84.4 % (42.0-75.0); PLATELET COUNT 309 X10^3/uL (150.0-450.0); RED CELL DISTRIBUTION WIDTH 13.4 % (11.6-16.5); WHITE BLOOD COUNT 18.6 X10^3/uL (3.6-10.0)
--- NOTE | 2021-02-08 06:32 | RAD ---
HISTORYFollow-up pneumoniaSTUDYChest AP [id number]/28/2021FINDINGSThe heart remains enlarged. Diffuse bilateral perihilar confluent alveolar infiltrates are present and unchanged in appearance when compared to the prior examination. Findings could be on the basis of bilateral pneumonia, cardiogenic or noncardiogenic pulmonary edema or ARDS. Clinical correlation is recommended. Lesions are identified. Bony thorax is unremarkable.IMPRESSIONNo change diffuse bilateral perihilar alveolar filling. Differential diagnosis as aboveNo change cardiomegalyElectronically signed by: SOFÍA BORDEN (Feb 08, 2021 06:30:09)
[2021-02-08 06:37] LABS: BLOOD UREA NITROGEN 20 mg/dL (7-18); CALCIUM 9.1 mg/dL (8.5-10.1); CARBON DIOXIDE 21.3 mmol/L (21-32); CHLORIDE 104 mmol/L (98-107); COR NA(FOR HYPERGLY) 141 mmol/L (136-145); CREATININE 1.28 mg/dL (0.70-1.30); SODIUM 140 mmol/L (136-145); eGFR NON BLACK RACES 57 (>60)
[2021-02-08] MEDS ORDERED: NS 100 ML IV 100 ML ONE (08:01)
[2021-02-08] MEDS: VANCOMYCIN IV *PREMIX 1.25 G/250 ML BAG 1.25 G/250 ML PIGGYBACK IV SCH ×2 (08:52→20:19)
[2021-02-08] MEDS: VIBRAMYCIN 100 MG in D5W 250 ML IV 250 ML IV SCH ×2 (08:52→21:12)
[2021-02-08] MEDS: VSL#3 PO SCH (08:58)
[2021-02-08] MEDS: SINGULAIR TAB 10 MG PO SCH (08:59)
[2021-02-08] MEDS: PLAVIX PO SCH (09:00)
[2021-02-08] MEDS: FOLIC ACID TAB 1 MG PO SCH (09:00)
[2021-02-08] MEDS ORDERED: TOPROL XL PO SCH (09:00)
[2021-02-08] MEDS: ARICEPT TAB 10 MG PO SCH (09:00)
[2021-02-08] MEDS: MEGACE PO SCH ×2 (09:00→21:04)
[2021-02-08] MEDS: MICRO K EXTEN CAP 10 MEQ PO SCH (09:00)
[2021-02-08] MEDS: PROCARDIA XL 24-hr PO SCH ×2 (09:00→21:04)
[2021-02-08] MEDS: ROBITUSSIN (PLAIN) PO SCH ×4 (09:01→21:05)
[2021-02-08] MEDS: VITAMIN B-12 PO SCH (09:01)
[2021-02-08] MEDS: SINEMET (PLAIN) 25/100 MG PO SCH (09:01)
[2021-02-08] MEDS: THEO-DUR TAB 300 MG 12-HR PO SCH ×2 (09:01→21:03)
[2021-02-08] MEDS: LOVENOX INJ 40 MG SYR SC SCH (09:02)
[2021-02-08] MEDS: PULMICORT NEB TX 0.5 MG NEB SCH ×2 (09:08→20:37)
--- NOTE | 2021-02-08 09:55 | CT ---
HISTORYLOW 02 [facility] CHESTCOMPARSELECT [facility]ICAL [facility] HOSPITALSame day chest radiograph.TECHNIQUECTA chest protocol with axial images from the thoracic inlet to upper abdomen with IV contrast. Sagittal and coronal reformats and MIP images were created. Automated exposure control was utilized.FINDINGSThe visualized thyroid gland appears benign. Moderately atherosclerotic normal caliber thoracic aorta. Pulmonary artery is normal in caliber centrally. No filling defect is identified to suggest pulmonary embolism. Heart is mildly enlarged there is severe coronary artery disease.No pericardial effusion. Mildly enlarged prevascular space lymph node measuring 1.5 cm short axis image 54 series 4. Cholelithiasis without other evidence of cholecystitis. Small exophytic left renal nodule measuring 1.5 cm with Hounsfield units of approximately 29, likely a cyst. Left adrenal nodule measuring 2.8 x 2 cm with Hounsfield units of 20.1, indeterminate. No acute osseous abnormality. The trachea is patent. The mainstem bronchi are patent. Bilateral perihilar airspace opacities are present. Small bilateral pleural effusions. No pneumothorax.IMPRESSIONBilateral perihilar airspace opacities may represent pneumonia, pulmonary edema, or ARDS. Small pleural effusions. Likely reactive mediastinal adenopathy. Recommend follow-up to document resolution.Mild cardiomegaly. Severe coronary artery disease.Negative for pulmonary embolism.Cholelithiasis.Indeterminate 2.8 cm left adrenal nodule. Recommend CT or MRI adrenal protocol.Electronically signed by: Jared Golden (Feb 08, 2021 09:53:37)
--- NOTE | 2021-02-08 10:39 | PCM.PROG ---
Progress Note Progress Note for Day of Date of Exam: 02/08/21 Subjective Subjective: Patient seen at bedside, overnight patient's respiratory status worsened. He went into atrial fibrillation with RVR and became more hypoxic. He was put on the venti mask and then transitioned to HHFNC to keep sats above 90%. His sats dropped into the 80s. Patient was noted to be in distress and hyperventilating. He was also noted to be wheezing. He was given IV metoprolol 5 mg to help bring his HR down. CXR showed b/l pneumonia with no acute changes. He was also given nebs and IV solumedrol. Patient appears to be more comfortable now. He does open eyes. His d-dimer was elevated this morning, waiting on CTA to rule out PE. Labs: WBC 18.6 Hgb 14 Plt 309 BUN/Cr: 20/1.28 Glucose 136 D-dimer 0.98 ABF 7.47/30//[address] [address]: diffuse bilateral infiltrates ECHO 02/05/21: EF 65%, moderate aortic valve stenosis, moderate pulmonary HTN Sputum Cx pending Blood Cx negative Plan: will repeat COVID test and resp panel, CTA pending. Add Zosyn. Continue IV Vancomycin and doxycycline. Continue pulmicort and solumedrol. Wean O2 as tolerated to keep sats > 92%. Repeat EKG and cardiac profile. Will increase metoprolol succinate to 50 mg daily. Charge nurse has notified patient's family about his change in respiratory status overnight. Patient is FULL Code.Will continue to monitor closely. Monitor AM labs and imaging. Time spent for clinical assessment, reviewing labs/imaging, physical exam, decision making and documentation greater than 75 mins. Past Medical Family Social History Past Med/Fam/Surg Hx: No changes since H&P Allergies: Allergies albuterol Allergy (Verified 02/05/21 13:11) banana Allergy (Verified 02/05/21 13:11) cefaclor [From Ceclor] Allergy (Verified 02/05/21 13:11) corn Allergy (Verified 02/05/21 13:11) fosinopril [From Monopril] Allergy (Verified 02/05/21 13:11) homatropine [From Homatropaire] Allergy (Verified 02/05/21 13:11) hydrocodone Allergy (Verified 02/05/21 13:11) ipratropium [From Atrovent] Allergy (Verified 02/05/21 13:11) irbesartan [From Avapro] Allergy (Verified 02/05/21 13:11) isosorbide Allergy (Verified 02/05/21 13:11) Milk Containing Products Allergy (Verified 02/05/21 13:11) morphine Allergy (Verified 02/05/21 13:11) salmeterol [From Serevent] Allergy (Verified 02/05/21 13:11) tamsulosin Allergy (Verified 02/05/21 13:11) tramadol Allergy (Verified 02/05/21 13:11) valsartan [From Diovan] Allergy (Verified 02/05/21 13:11) Review of Systems ROS: No change since H&P Vital Signs and I&O's Vital Signs: Temperature 99.6 F Pulse Rate [Apical] 110 Pulse Rate [Left] 98 Pulse Rate 118 Respiratory Rate 34 Blood Pressure [Right Arm] 128/72 Blood Pressure [Left Arm] 126/62 Blood Pressure 137/75 O2 Sat by Pulse Oximetry 95 Intake and Output: Intake & Output 02/05/21 02/06/21 02/07/21 02/08/21 23:59 23:59 23:59 23:59 Intake Total 180 / 180 1154 / 1154 3937 / 3937 494 / 494 Balance 180 / 180 1154 / 1154 3937 / 3937 494 / 494 Physical Exam Oriented: Other (Dementia) Eyes: Normal Ear: Normal Nose: Normal Throat: Normal Respiratory: Generalized, Wheezes and Rhonchi Cardiovascular: Tachycardia Auscultation: Bowel Sounds: Normal Tenderness: Normal Skin: Normal Musculoskeletal: Normal Psychiatric: Anxiety and Other (Dementia) Mood Description: Calm Affect: Flat Speech Pattern: Unclear and Delayed Laboratory and Diagnostics Result Diagrams: 02/08/21 05:11 02/08/21 05:11 Labs: 02/07/21 21:19 Sputum - Expectorated Sputum - Final 02/05/21 14:50 Blood Blood Culture - Preliminary 02/05/21 14:48 Blood Blood Culture - Preliminary Laboratory WBC 18.6 X10^3/uL (3.6-10.0) H 02/08/21 05:11 RBC 4.30 X10^6/uL (4.7-6.0) L 02/08/21 05:11 Hgb 14.2 g/dL (13.5-18.0) 02/08/21 05:11 Hct 40.8 % (42.0-54.0) L 02/08/21 05:11 MCV 94.8 fL (80.0-100.0) 02/08/21 05:11 MCH 33.0 pg (27.0-34.0) 02/08/21 05:11 MCHC 34.8 g/dL (33.0-35.0) 02/08/21 05:11 RDW 13.4 % (11.6-16.5) 02/08/21 05:11 Plt Count 309 X10^3/uL (150.0-450.0) 02/08/21 05:11 Plt Count Comment Adequate (ADEQUATE) 02/05/21 14:48 MPV 8.0 fL (7.4-11.0) 02/08/21 05:11 Neut % (Auto) 84.4 % (42.0-75.0) H 02/08/21 05:11 Lymph % (Auto) 8.8 % (21.0-51.0) L 02/08/21 05:11 [place] % (Auto) 6.0 % (0.0-13.0) 02/08/21 05:11 Eos % (Auto) 0.5 % (0.9-2.9) L 02/08/21 05:11 Baso % (Auto) 0.3 % (0.2-1.0) 02/08/21 05:11 Neut # (Auto) 15.7 x10^3/uL (2.2-4.8) H 02/08/21 05:11 Lymph # (Auto) 1.6 X10^3/uL (1.3-2.9) 02/08/21 05:11 [place] # (Auto) 1.1 x10^3/uL (0.3-0.8) H 02/08/21 05:11 Eos # (Auto) 0.1 x10^3/uL (0.0-0.2) 02/08/21 05:11 Baso # (Auto) 0.1 X10^3/uL (0.0-0.1) 02/08/21 05:11 Absolute Nucleated RBC 0.1 /100WBC 02/08/21 05:11 Total Counted 100 02/05/21 14:48 Neutrophils % (Manual) 84 % (39-76) H 02/05/21 14:48 Band Neutrophils % 5 % (0-10) 02/05/21 14:48 Lymphocytes % (Manual) 6 % (13-43) L 02/05/21 14:48 Monocytes % (Manual) 5 % (4-9) 02/05/21 14:48 Plt Morphology Comment Normal (NORMAL) 02/05/21 14:48 RBC Morphology Normal (NORMAL) 02/05/21 14:48 D-Dimer 0.98 ug/ml (0.0-0.57) H* 02/08/21 06:17 Sample Site Lr 02/08/21 05:30 ABG pH 7.470 (7.35-7.45) H 02/08/21 05:30 ABG pCO2 30.0 mmHg (35.0-45.0) L 02/08/21 05:30 ABG pO2 78.0 mmHg (80.0-100.0) L 02/08/21 05:30 ABG HCO3 21.8 mmol/L (22-26) L 02/08/21 05:30 ABG O2 Saturation 96.0 % (90-100) 02/08/21 05:30 ABG Base Excess -1.0 mmol/L (-2.0-2.0) 02/08/21 05:30 [place] Test Pos 02/08/21 05:30 A-a Gradient 526.0 mmHg 02/08/21 05:30 FiO2 90.0 02/08/21 05:30 Blood Gas Comments Nany well ae 02/08/21 05:30 Sodium 140 mmol/L (136-145) 02/08/21 05:11 Corrected Sodium 141 mmol/L (136-145) 02/08/21 05:11 Potassium 3.5 mmol/L (3.5-5.1) 02/08/21 05:11 Chloride 104 mmol/L (98-107) 02/08/21 05:11 Carbon Dioxide 21.3 mmol/L (21-32) 02/08/21 05:11 BUN 20 mg/dL (7-18) H 02/08/21 05:11 Creatinine 1.28 mg/dL (0.70-1.30) 02/08/21 05:11 Est GFR (MDRD) Af Amer > 60 (>60) 02/08/21 05:11 Est GFR (MDRD) Non-Af 57 (>60) L 02/08/21 05:11 Glucose 136 mg/dL (65-99) H 02/08/21 05:11 Lactic Acid 1.4 mmol/L (0.4-2.0) 02/05/21 14:48 Calcium 9.1 mg/dL (8.5-10.1) 02/08/21 05:11 Corrected Calcium 9.6 mg/dL (8.5-10.1) 02/07/21 04:43 Total Bilirubin 0.40 mg/dL (0.2-1.0) 02/07/21 04:43 AST 12 Units/L (15-37) L 02/07/21 04:43 ALT 13 Units/L (12-78) 02/07/21 04:43 Alkaline Phosphatase 60 Units/L (46-116) 02/07/21 04:43 Creatine Kinase 64 Units/L (39-308) 02/06/21 05:10 CK-MB (CK-2) 1.2 ng/mL (0-4.0) 02/06/21 05:10 CK/CKMB % Calc 1.9 % (<4) 02/06/21 05:10 Troponin I < 0.02 ng/mL (0-1.5) 02/06/21 05:10 B-Natriuretic Peptide 147 pg/mL (0-79) H 02/05/21 14:48 Total Protein 6.1 g/dL (6.4-8.2) L 02/07/21 04:43 Albumin 2.7 g/dL (3.4-5.0) L 02/07/21 04:43 Globulin 3.4 g/dL (2.5-4.5) 02/07/21 04:43 Albumin/Globulin Ratio 0.8 Ratio (1.1-2.1) L 02/07/21 04:43 Specimen Type Random urine 02/05/21 14:54 Urine Color Yellow (YELLOW) 02/05/21 14:54 Urine Appearance Clear (CLEAR) 02/05/21 14:54 Urine pH 6.0 (5.0 - 8.0) 02/05/21 14:54 Ur Specific [place] 1.015 (1.000-1.030) 02/05/21 14:54 Urine Protein Negative (NEGATIVE) 02/05/21 14:54 Urine Glucose (UA) Negative (NEGATIVE) 02/05/21 14:54 Urine Ketones Negative (NEGATIVE) 02/05/21 14:54 Urine Occult Blood 1+ (NEGATIVE) 02/05/21 14:54 Urine Nitrite Negative (NEGATIVE) 02/05/21 14:54 Urine Bilirubin Negative (NEGATIVE) 02/05/21 14:54 Urine Urobilinogen Normal (NORMAL) 02/05/21 14:54 Ur Leukocyte Esterase Negative (NEGATIVE) 02/05/21 14:54 Urine RBC 3-5 /HPF (0-3) A 02/05/21 14:54 Urine WBC None seen /HPF (0-5) 02/05/21 14:54 Ur Squamous Epith Cells Rare /HPF (NEGATIVE) 02/05/21 14:54 Amorphous Sediment Trace /HPF (NEGATIVE) 02/05/21 14:54 Urine Bacteria Negative /HPF (NEGATIVE) 02/05/21 14:54 Ur Culture Indicated? No/not indicated 02/05/21 14:54 Theophylline 3.9 ug/mL (10-20) L 02/06/21 05:10 SARS-CoV-2 (PCR) Negative (NEGATIVE) 02/08/21 07:55 Influenza Type A (PCR) Negative (NEGATIVE) 02/08/21 07:55 Influenza Type B (PCR) Negative (NEGATIVE) 02/08/21 07:55 RSV (PCR) Negative (NEGATIVE) 02/08/21 07:55 Plan (1) COPD exacerbation: Status: Acute (2) Acute respiratory failure: Status: Acute Qualifiers: Respiratory failure complication: hypoxia Qualified Code(s): J96.01 - Acute respiratory failure with hypoxia (3) Atrial fibrillation with rapid ventricular response: Status: Acute (4) Pneumonia: Status: Acute Qualifiers: Laterality: bilateral Lung location: lower lobe of lung Pneumonia type: due to unspecified organism Qualified Code(s): J18.9 - Pneumonia, unspecified organism (5) COPD (chronic obstructive pulmonary disease): Status: Chronic Qualifiers: COPD type: COPD with acute exacerbation Qualified Code(s): J44.1 - Chronic obstructive pulmonary disease with (acute) exacerbation (6) Generalized weakness: Status: Acute (7) CAD (coronary artery disease): Status: Chronic Qualifiers: Associated angina: unspecified whether angina present Coronary Disease- Associated Artery/Lesion type: unspecified vessel or lesion type [place] vs. transplanted heart: unspecified whether [place] or transplanted heart Qualified Code(s): I25.10 - Atherosclerotic heart disease of [place] coronary artery without angina pectoris (8) Dementia: Status: Acute Qualifiers: Dementia behavioral disturbance: without behavioral disturbance Dementia type: unspecified type Qualified Code(s): F03.90 - Unspecified dementia without behavioral disturbance
[2021-02-08 11:39] LABS: CKMB % 1.1 % (<4); CREATINE KINASE 134 Units/L (39-308); CREATINE KINASE MB 1.5 ng/mL (0-4.0); TROPONIN I < 0.02 ng/mL (0-1.5)
[2021-02-08 11:43] LABS: ALANINE AMINOTRANSFERASE 17 Units/L (12-78); ALBUMIN 3.1 g/dL (3.4-5.0); ALKALINE PHOSPHATASE 77 Units/L (46-116); ASPARTATE AMINO TRANSFERASE 20 Units/L (15-37); COR CA(FOR HYPOALB) 9.8 mg/dL (8.5-10.1); TOTAL PROTEIN 7.2 g/dL (6.4-8.2)
[2021-02-08] MEDS: ZOSYN VIAL 3.375 GRAMS 3.375 G in NS 100 ML IV + SPIKE MINIBAG* 100 ML IV SCH ×3 (12:00→21:43)
[2021-02-08] MEDS: SOLU-Medrol 40 MG VIAL IVP SCH ×2 (14:28→21:06)
[2021-02-08] MEDS: LOPRESSOR INJ 5 MG AMP IVP PRN (18:18)
[2021-02-08] MEDS: ASPIRIN EC 81 MG PO SCH (21:04)
[2021-02-08] MEDS: CRESTOR TAB 10 MG PO SCH (21:05)
[2021-02-09 00:20] LABS: ABG HCO3 21.8 mmol/L (22-26)
[2021-02-09 00:21] LABS: ABG ALLEN TEST POS
[2021-02-09] MEDS: XOPENEX 1.25 MG/3 ML NEBULE NEB SCH ×4 (00:37→17:30)
[2021-02-09] MEDS: ATIVAN TAB 1 MG PO PRN (03:15)
[2021-02-09] MEDS: NS 1000 ML 1,000 ML IV SCH ×3 (03:31→18:46)
[2021-02-09] MEDS ORDERED: VERSED IV PREMIX 100 MG/100 ML IV.SOLN IV ONE (04:41)
[2021-02-09] MEDS ORDERED: VERSED IVP ONE (04:42)
[2021-02-09] MEDS ORDERED: DIPRIVAN VIAL 20 ML ONE (04:59)
[2021-02-09] MEDS ORDERED: QUELICIN (OR ANECTINE) ONE (05:05)
--- NOTE | 2021-02-09 05:18 | OR.IMMED ---
IMMEDIATE POST-OP NOTE Immediate Post-Op Note Pre-Op Diagnosis: respiratory failure, lack of IV access Post-Op Diagnosis: same Procedure: left subclavian central vein acceess Description of Procedure: see operative summary Surgeon/Corrective Therapy Aide Teacher: Christian Findings: as above Estimated Blood Loss: 7 cc Drains: NONE Complications: none Progress Notes: post - procedure CXR shows good placement in inominant vein and no pneumothorax, sever b/l pneumonia Condition: Critical Final Diagnosis: lack of IV access
[2021-02-09] MEDS ORDERED: NORCURON INJ 10 MG VIAL ONE ×2 (05:34)
--- NOTE | 2021-02-09 05:34 | RAD ---
HISTORYCENTRAL LINE PLACEMENTSTUDYCHEST, 1 [id number]/30/2021FINDINGSThe trachea is midline. Left central line tip in the region of the SVC. The cardiac silhouette is enlarged.. Diffuse bilateral perihilar alveolar infiltrates unchanged.. The bony thorax is unremarkable.IMPRESSIONDiffuse bilateral perihilar alveolar infiltrates.Left subclavian central line tip in SVC.Electronically signed by: Owen Heart (Feb 09, 2021 05:32:38)
[2021-02-09] MEDS ORDERED: NS 50 ML IV 50 ML IV ONE (05:38)
[2021-02-09] MEDS: VERSED IV PREMIX 100 MG/100 ML IV.SOLN IV PRN ×2 (05:40→16:38)
[2021-02-09] MEDS: NORCURON INJ 10 MG VIAL 50 MG in NS 50 ML IV 50 ML IV PRN ×2 (05:45→14:22)
--- NOTE | 2021-02-09 05:46 | RAD ---
HISTORYET TUBE PLACEMENTSTUDYCHEST, 1 [id number]/30/2021FINDINGSThe trachea is midline. Endotracheal tube tip above the [place]. Left subclavian line in SVC. The cardiac silhouette is enlarged.. Diffuse bilateral perihilar infiltrates unchanged. No pneumothorax.. The bony thorax is unremarkable.IMPRESSIONStable portable chestElectronically signed by: Owen Heart (Feb 09, 2021 05:43:39)
[2021-02-09 06:16] LABS: BASOPHILS # (AUTO) 0.1 X10^3/uL (0.0-0.1); BASOPHILS % (AUTO) 0.2 % (0.2-1.0); HEMATOCRIT 39.9 % (42.0-54.0); HEMOGLOBIN 13.7 g/dL (13.5-18.0); LYMPHOCYTES # (AUTO) 0.7 X10^3/uL (1.3-2.9); LYMPHOCYTES % (AUTO) 1.5 % (21.0-51.0); MEAN CORPUSCULAR HEMOGLOBIN 32.7 pg (27.0-34.0); MEAN CORPUSCULAR HGB CONC 34.3 g/dL (33.0-35.0); MEAN CORPUSCULAR VOLUME 95.3 fL (80.0-100.0); MONOCYTES # (AUTO) 0.7 x10^3/uL (0.3-0.8); MONOCYTES % (AUTO) 1.6 % (0.0-13.0); NEUTROPHILS % (AUTO) 96.7 % (42.0-75.0); PLATELET COUNT 330 X10^3/uL (150.0-450.0); RED BLOOD COUNT 4.18 X10^6/uL (4.7-6.0); RED CELL DISTRIBUTION WIDTH 13.5 % (11.6-16.5)
[2021-02-09 06:18] LABS: WHITE BLOOD COUNT 42.4 X10^3/uL (3.6-10.0)
[2021-02-09] MEDS: LOPRESSOR INJ 5 MG AMP IVP PRN (06:19)
[2021-02-09 06:25] LABS: ALBUMIN 2.7 g/dL (3.4-5.0); CALCIUM 9.2 mg/dL (8.5-10.1); CARBON DIOXIDE 19.7 mmol/L (21-32); COR CA(FOR HYPOALB) 10.2 mg/dL (8.5-10.1); CREATININE 1.94 mg/dL (0.70-1.30); THEOPHYLLINE 9.2 ug/mL (10-20); TOTAL PROTEIN 6.7 g/dL (6.4-8.2)
--- NOTE | 2021-02-09 06:28 | RAD ---
HISTORYPNEUMONIA F/USTUDYCHEST, 1 [id number]/29/2021.TECHNIQUEAP view of the chestFINDINGSSimilar appearance of deviation of trachea at the thoracic inlet to the right.The cardiac and mediastinal contours appear stable. No significant change in bilateral airspace and interstitial opacities. No definite pleural effusion or pneumothorax.IMPRESSIONNo significant change. Similar appearance of bilateral pneumonia.Electronically signed by: Jared Golden (Feb 09, 2021 06:26:37)
[2021-02-09 06:29] LABS: BILIRUBIN,URINE NEGATIVE (NEGATIVE); BLOOD/HEMOGLOBIN,URINE NEGATIVE (NEGATIVE); GLUCOSE, URINE NEGATIVE (NEGATIVE); KETONES,URINE NEGATIVE (NEGATIVE); LEUKOCYTE ESTERASE ,URINE NEGATIVE (NEGATIVE); NITRITES,URINE NEGATIVE (NEGATIVE); PROTEIN,URINE 2+ (NEGATIVE); UROBILINOGEN,URINE NORMAL (NORMAL)
[2021-02-09 06:32] LABS: BAND NEUTROPHILS % 7 % (0-10)
[2021-02-09 06:33] LABS: PLATELET MORPHOLOGY COMMENT NORMAL (NORMAL)
[2021-02-09 06:34] LABS: APPEARANCE,URINE CLEAR (CLEAR); COLOR,URINE YELLOW (YELLOW)
[2021-02-09 06:36] LABS: RBC,URINE 0-2 /HPF (0-3)
[2021-02-09 06:37] LABS: BACTERIA,URINE TRACE /HPF (NEGATIVE); HYALINE CASTS, URINE RARE /LPF (NEGATIVE); SQUAMOUS EPITHELIAL CELL,UR RARE /HPF (NEGATIVE)
[2021-02-09] MEDS: SOLU-Medrol 40 MG VIAL IVP SCH (06:44)
[2021-02-09] MEDS: ZOSYN VIAL 3.375 GRAMS 3.375 G in NS 100 ML IV + SPIKE MINIBAG* 100 ML IV SCH ×3 (06:45→22:42)
[2021-02-09 07:40] LABS: ABG ALLEN TEST POS; ABG BASE EXCESS -7.5 mmol/L (-2.0-2.0); ABG HCO3 20.1 mmol/L (22-26)
[2021-02-09] MEDS ORDERED: NS 500 ML IV 500 ML IV ONE (08:25)
[2021-02-09] MEDS: LOVENOX INJ 40 MG SYR SC SCH (08:48)
[2021-02-09] MEDS: VANCOMYCIN IV *PREMIX 1.25 G/250 ML BAG 1.25 G/250 ML PIGGYBACK IV SCH ×2 (08:48→21:38)
[2021-02-09] MEDS ORDERED: LASIX IVP SCH (09:00)
[2021-02-09] MEDS: VIBRAMYCIN 100 MG in D5W 250 ML IV 250 ML IV SCH (10:14)
[2021-02-09] MEDS: PULMICORT NEB TX 0.5 MG NEB SCH ×2 (12:31→20:50)
--- NOTE | 2021-02-09 13:18 | PCM.PROG ---
Progress Note Progress Note for Day of Date of Exam: 02/09/21 Subjective Subjective: Patient seen at bedside, overnight patient's respiratory status acutely worsened with hypoxia. He was initially placed on BiPAP but was unable to tolerate and had to be intubated early this morning due to acute respiratory failure. CXR this morning continues to show diffuse bilateral perihilar infiltrates. Labs: WBC 42.4 Hgb 13.7 Plt 330 BUN/Cr: 36/1.94 Glucose 257 AB.26/50/58/22/85% on FiO2 100% CTA Chest: Bilateral perihilar airspace opacities may represent pneumonia, pulmo nary edema, or ARDS. ECHO 02/05/21: EF 65%, moderate aortic valve stenosis, moderate pulmonary HTN Sputum Cx NGTD Blood Cx negative Plan: Continue IV Vancomycin and Zosyn. Discussed with family patient's critical status and prognosis. In agreement with patient's and family's wishes, will ruthy nge status to DNR. Optimize ventilation and medical management. Tele-critical care consulted, Dr White. Will increase PEEP settings and repeat ABG in 2 hours. Continue to monitor closely. Follow up AM labs and imaging. Critical care time spent 30-74 minutes in clinical assessment, reviewing l abs/imaging, decision making, and documentation. Past Medical Family Social History Past Med/Fam/Surg Hx: No changes since H&P Allergies: Allergies albuterol Allergy (Verified 02/08/21 10:44) verified with bilingual receptionist and family member banana Allergy (Verified 02/08/21 10:46) cefaclor [From Ceclor] Allergy (Verified 02/08/21 10:46) corn Allergy (Verified 02/08/21 10:46) fosinopril [From Monopril] Allergy (Verified 02/08/21 10:46) homatropine [From Homatropaire] Allergy (Verified 02/08/21 10:46) hydrocodone Allergy (Verified 02/08/21 10:46) ipratropium [From Atrovent] Allergy (Verified 02/08/21 10:46) irbesartan [From Avapro] Allergy (Verified 02/08/21 10:46) isosorbide Allergy (Verified 02/08/21 10:46) Milk Containing Products Allergy (Verified 02/08/21 10:46) morphine Allergy (Verified 02/08/21 10:46) salmeterol [From Serevent] Allergy (Verified 02/08/21 10:46) tamsulosin Allergy (Verified 02/08/21 10:46) tramadol Allergy (Verified 02/08/21 10:46) valsartan [From Diovan] Allergy (Verified 02/08/21 10:46) Review of Systems ROS: No change since H&P Vital Signs and I&O's Vital Signs: Temperature 99.9 F Pulse Rate [Apical] 126 Pulse Rate [Left] 98 Pulse Rate 130 Respiratory Rate 18 Blood Pressure [Right Arm] 108/66 Blood Pressure [Left Arm] 126/62 Blood Pressure 135/62 O2 Sat by Pulse Oximetry 84 Intake and Output: Intake & Output 02/06/21 02/07/21 02/08/21 02/09/21 23:59 23:59 23:59 23:59 Intake Total 1154 / 1154 3937 / 3937 3044 / 3044 152 / 152 Balance 1154 / 1154 3937 / 3937 3044 / 3044 152 / 152 Physical Exam Oriented: Other (Intubated, mechanical ventilation) Eyes: Normal Ear: Normal Nose: Normal Throat: Other (Intubated, mechanical ventilation) Respiratory: Generalized, Wheezes and Rhonchi Cardiovascular: Tachycardia and Irregular : Normal Auscultation: Bowel Sounds: Normal Tenderness: Normal Skin: Normal Musculoskeletal: Normal Psychiatric: Other (Sedated) Speech Pattern: Artificially Ventilated Laboratory and Diagnostics Result Diagrams: 02/09/21 05:35 02/09/21 05:35 Labs: 02/09/21 07:50 Sputum - Endotracheal Wash - Final 02/07/21 21:19 Sputum - Expectorated Sputum Sputum Culture - Final 02/07/21 21:19 Sputum - Expectorated Sputum - Final 02/05/21 14:50 Blood Blood Culture - Preliminary 02/05/21 14:48 Blood Blood Culture - Preliminary Laboratory WBC 42.4 X10^3/uL (3.6-10.0) H* D 02/09/21 05:35 RBC 4.18 X10^6/uL (4.7-6.0) L 02/09/21 05:35 Hgb 13.7 g/dL (13.5-18.0) 02/09/21 05:35 Hct 39.9 % (42.0-54.0) L 02/09/21 05:35 MCV 95.3 fL (80.0-100.0) 02/09/21 05:35 MCH 32.7 pg (27.0-34.0) 02/09/21 05:35 MCHC 34.3 g/dL (33.0-35.0) 02/09/21 05:35 RDW 13.5 % (11.6-16.5) 02/09/21 05:35 Plt Count 330 X10^3/uL (150.0-450.0) 02/09/21 05:35 Plt Count Comment Adequate (ADEQUATE) 02/09/21 05:35 MPV 8.0 fL (7.4-11.0) 02/09/21 05:35 Neut % (Auto) 96.7 % (42.0-75.0) H 02/09/21 05:35 Lymph % (Auto) 1.5 % (21.0-51.0) L 02/09/21 05:35 [place] % (Auto) 1.6 % (0.0-13.0) 02/09/21 05:35 Eos % (Auto) 0.0 % (0.9-2.9) L 02/09/21 05:35 Baso % (Auto) 0.2 % (0.2-1.0) 02/09/21 05:35 Neut # (Auto) 41.0 x10^3/uL (2.2-4.8) H 02/09/21 05:35 Lymph # (Auto) 0.7 X10^3/uL (1.3-2.9) L 02/09/21 05:35 [place] # (Auto) 0.7 x10^3/uL (0.3-0.8) 02/09/21 05:35 Eos # (Auto) 0.0 x10^3/uL (0.0-0.2) 02/09/21 05:35 Baso # (Auto) 0.1 X10^3/uL (0.0-0.1) 02/09/21 05:35 Absolute Nucleated RBC 0.0 /100WBC 02/09/21 05:35 Total Counted 100 02/09/21 05:35 Neutrophils % (Manual) 89 % (39-76) H 02/09/21 05:35 Band Neutrophils % 7 % (0-10) 02/09/21 05:35 Lymphocytes % (Manual) 1 % (13-43) L 02/09/21 05:35 Monocytes % (Manual) 3 % (4-9) L 02/09/21 05:35 Plt Morphology Comment Normal (NORMAL) 02/09/21 05:35 RBC Morphology Normal (NORMAL) 02/09/21 05:35 D-Dimer 0.98 ug/ml (0.0-0.57) H* 02/08/21 06:17 Sample Site Rra 02/09/21 07:35 ABG pH 7.230 (7.35-7.45) L 02/09/21 07:35 ABG pCO2 48.0 mmHg (35.0-45.0) H 02/09/21 07:35 ABG pO2 66.0 mmHg (80.0-100.0) L 02/09/21 07:35 ABG HCO3 20.1 mmol/L (22-26) L 02/09/21 07:35 ABG O2 Saturation 88.0 % (90-100) L 02/09/21 07:35 ABG Base Excess -7.5 mmol/L (-2.0-2.0) L 02/09/21 07:35 [place] Test Pos 02/09/21 07:35 A-a Gradient 587.0 mmHg 02/09/21 07:35 FiO2 100.0 02/09/21 07:35 Blood Gas Comments Nany well mts 02/09/21 07:35 Sodium 139 mmol/L (136-145) 02/09/21 05:35 Corrected Sodium 143 mmol/L (136-145) 02/09/21 05:35 Potassium 4.1 mmol/L (3.5-5.1) 02/09/21 05:35 Chloride 103 mmol/L (98-107) 02/09/21 05:35 Carbon Dioxide 19.7 mmol/L (21-32) L 02/09/21 05:35 BUN 36 mg/dL (7-18) H 02/09/21 05:35 Creatinine 1.94 mg/dL (0.70-1.30) H 02/09/21 05:35 Est GFR (MDRD) Af Amer 43 (>60) L 02/09/21 05:35 Est GFR (MDRD) Non-Af 35 (>60) L 02/09/21 05:35 Glucose 257 mg/dL (65-99) H 02/09/21 05:35 Lactic Acid 1.4 mmol/L (0.4-2.0) 02/05/21 14:48 Calcium 9.2 mg/dL (8.5-10.1) 02/09/21 05:35 Corrected Calcium 10.2 mg/dL (8.5-10.1) H 02/09/21 05:35 Total Bilirubin 1.00 mg/dL (0.2-1.0) 02/09/21 05:35 AST 23 Units/L (15-37) 02/09/21 05:35 ALT 16 Units/L (12-78) 02/09/21 05:35 Alkaline Phosphatase 70 Units/L (46-116) 02/09/21 05:35 Creatine Kinase 134 Units/L (39-308) 02/08/21 10:44 CK-MB (CK-2) 1.5 ng/mL (0-4.0) 02/08/21 10:44 CK/CKMB % Calc 1.1 % (<4) 02/08/21 10:44 Troponin I < 0.02 ng/mL (0-1.5) 02/08/21 10:44 B-Natriuretic Peptide 147 pg/mL (0-79) H 02/05/21 14:48 Total Protein 6.7 g/dL (6.4-8.2) 02/09/21 05:35 Albumin 2.7 g/dL (3.4-5.0) L 02/09/21 05:35 Globulin 4.0 g/dL (2.5-4.5) 02/09/21 05:35 Albumin/Globulin Ratio 0.7 Ratio (1.1-2.1) L 02/09/21 05:35 Specimen Type Catherized urine 02/09/21 06:24 Urine Color Yellow (YELLOW) 02/09/21 06:24 Urine Appearance Clear (CLEAR) 02/09/21 06:24 Urine pH 6.0 (5.0 - 8.0) 02/09/21 06:24 Ur Specific [place] 1.020 (1.000-1.030) 02/09/21 06:24 Urine Protein 2+ (NEGATIVE) 02/09/21 06:24 Urine Glucose (UA) Negative (NEGATIVE) 02/09/21 06:24 Urine Ketones Negative (NEGATIVE) 02/09/21 06:24 Urine Occult Blood Negative (NEGATIVE) 02/09/21 06:24 Urine Nitrite Negative (NEGATIVE) 02/09/21 06:24 Urine Bilirubin Negative (NEGATIVE) 02/09/21 06:24 Urine Urobilinogen Normal (NORMAL) 02/09/21 06:24 Ur Leukocyte Esterase Negative (NEGATIVE) 02/09/21 06:24 Urine RBC 0-2 /HPF (0-3) 02/09/21 06:24 Urine WBC 0-2 /HPF (0-5) 02/09/21 06:24 Ur Squamous Epith Cells Rare /HPF (NEGATIVE) 02/09/21 06:24 Amorphous Sediment Trace /HPF (NEGATIVE) 02/05/21 14:54 Urine Bacteria Trace /HPF (NEGATIVE) 02/09/21 06:24 Hyaline Casts Rare /LPF (NEGATIVE) 02/09/21 06:24 Ur Culture Indicated? No/not indicated 02/09/21 06:24 Theophylline 9.2 ug/mL (10-20) L 02/09/21 05:35 SARS-CoV-2 (PCR) Negative (NEGATIVE) 02/08/21 07:55 Influenza Type A (PCR) Negative (NEGATIVE) 02/08/21 07:55 Influenza Type B (PCR) Negative (NEGATIVE) 02/08/21 07:55 RSV (PCR) Negative (NEGATIVE) 02/08/21 07:55 Plan (1) COPD exacerbation: Status: Acute (2) Acute respiratory failure: Status: Acute Qualifiers: Respiratory failure complication: hypoxia Qualified Code(s): J96.01 - Acute respiratory failure with hypoxia (3) Atrial fibrillation with rapid ventricular response: Status: Acute (4) Pneumonia: Status: Acute Qualifiers: Laterality: bilateral Lung location: lower lobe of lung Pneumonia type: due to unspecified organism Qualified Code(s): J18.9 - Pneumonia, unspecified organism (5) COPD (chronic obstructive pulmonary disease): Status: Chronic Qualifiers: COPD type: COPD with acute exacerbation Qualified Code(s): J44.1 - Chronic obstructive pulmonary disease with (acute) exacerbation (6) Generalized weakness: Status: Acute (7) CAD (coronary artery disease): Status: Chronic Qualifiers: Associated angina: unspecified whether angina present Coronary Disease- Associated Artery/Lesion type: unspecified vessel or lesion type [place] vs. transplanted heart: unspecified whether [place] or transplanted heart Qualified Code(s): I25.10 - Atherosclerotic heart disease of [place] coronary artery without angina pectoris (8) Dementia: Status: Acute Qualifiers: Dementia behavioral disturbance: without behavioral disturbance Dementia type: unspecified type Qualified Code(s): F03.90 - Unspecified dementia without behavioral disturbance
[2021-02-09 13:23] LABS: LACTIC ACID 2.7 mmol/L (0.4-2.0); TROPONIN I 0.44 ng/mL (0-1.5)
--- NOTE | 2021-02-09 14:28 | DR.OPNOTE ---
OP NOTE Pre-Op Diagnosis: Respiratory failure, bilateral pneumonia, lack of IV access Post-Op Diagnosis: same Procedure Date Date Of Procedure: 02/09/21 Procedure: In the patient's room he was placed in Trendelenburg position and the left neck and left upper chest at the clavicle were prepped and draped in sterile fashion. The skin underlying the left clavicle infiltrated with 1% Xylocaine. Left subclavian vein punctured with a 14gauge needle and guidewire placed without difficulty. Incision made over the guidewire at the skin level and the dilator placed over the guidewire into the left subclavian vein. The dilator removed and the catheter placed over the guidewire and the guidewire removed. All ports of the triple lumen catheter were aspirated of blood and flushed with heparinized saline. The central venous catheter secured to the skin with interrupted silk sutures. Post procedure chest x-ray showed bilateral pneumonia with no pneumothorax and good placement of the left subclavian venous access. Type of Anesthesia: Local (1 % Xylocaine 6 cc) Anesthesia Comment: local Findings: The patient was in severe respiratory distress with lack of IV access. Patient was intubated shortly after placement of the central venous access Specimen/Pathology: none EBL: 5 cc Drains/Tubes Placed: None Complications:: none Needle/Sponge Count:: correct Disposition/Condition: Pt. tolerated procedure without difficulty. Post- procedure CXR showed b/l pneumonia, good placement of the left subclavian central venous access and no pneumonthorax.
[2021-02-09] MEDS ORDERED: APRESOLINE INJ 20 MG VIAL IVP PRN (15:17)
[2021-02-09] MEDS ORDERED: MICRO K EXTEN CAP 10 MEQ PO PRN (15:19)
[2021-02-09] MEDS ORDERED: MAGNESIUM SULFATE 1 GRAM/100 mL PREMIX 1 GM/100 ML BAG IV PRN (15:19)
[2021-02-09] MEDS ORDERED: POTASSIUM CHL 40 MEQ/NS 0.45% 500 ML IV PRN (15:19)
[2021-02-09] MEDS ORDERED: POTASSIUM CHL 60 MEQ/NS 0.45% 500 ML IV PRN (15:19)
[2021-02-09] MEDS ORDERED: K-DUR TAB 20 MEQ PO PRN (15:19)
[2021-02-09] MEDS ORDERED: KLOR-CON PO PRN (15:19)
[2021-02-09] MEDS ORDERED: K-RIDER 10 MEQ/NS 100 ML 10 MEQ/100 ML BAG IV PRN (15:19)
[2021-02-09] MEDS ORDERED: POTASSIUM CHLORIDE LIQ 20 MEQ UDC PO PRN (15:19)
[2021-02-09 15:27] LABS: ABG BASE EXCESS -4.9 mmol/L (-2.0-2.0); ABG HCO3 22.4 mmol/L (22-26)
[2021-02-09 15:28] LABS: ABG ALLEN TEST POS
[2021-02-09 19:01] LABS: ABG ALLEN TEST POS; ABG BASE EXCESS -3.7 mmol/L (-2.0-2.0); ABG HCO3 23.1 mmol/L (22-26)
[2021-02-09] MEDS ORDERED: PHARMACY COMMENT IV ONE (20:30)
[2021-02-09 21:25] LABS: CREATININE 1.93 mg/dL (0.70-1.30); VANCOMYCIN,TROUGH 18.1 ug/mL (15-20)
--- NOTE | 2021-02-09 23:14 | DR.CONSULT ---
CONSULT Consultation for Day of: Date: 02/09/21 Chief Complaint Chief Complaint: Called for tele consultation to help with vent management. Allergies Allergies Allergy/AdvReac Type Severity Reaction Status Date / Time albuterol Allergy Verified 02/08/21 10:44 banana Allergy Verified 02/08/21 10:46 cefaclor [From Ceclor] Allergy Verified 02/08/21 10:46 corn Allergy Verified 02/08/21 10:46 fosinopril [From Monopril] Allergy Verified 02/08/21 10:46 homatropine Allergy Verified 02/08/21 10:46 [From Homatropaire] hydrocodone Allergy Verified 02/08/21 10:46 ipratropium [From Atrovent] Allergy Verified 02/08/21 10:46 irbesartan [From Avapro] Allergy Verified 02/08/21 10:46 isosorbide Allergy Verified 02/08/21 10:46 Milk Containing Products Allergy Verified 02/08/21 10:46 morphine Allergy Verified 02/08/21 10:46 salmeterol [From Serevent] Allergy Verified 02/08/21 10:46 tamsulosin Allergy Verified 02/08/21 10:46 tramadol Allergy Verified 02/08/21 10:46 valsartan [From Diovan] Allergy Verified 02/08/21 10:46 History of Present Illness History of Present Illness: 81 year old male past medical history of CHF, COPD(~BL 2L), Dementia, HTN, presenting with weakness after failing outpatient treatment for persistent cough. COVID-19/Flu/RSV negative, CXR: Right basilar lung infiltrate suggestive of pneumonia, Hypo inflation, and Cardiomegaly without congestive heart failure. Pt was admitted for pneumonia and had worsening of his respiratory status. He ended up being intubated with high oxyg en requirements. A tele consultation was requested to help with vent management in view of increased support. Review of systems unobtainable as patient is intubated and sedated. Chart was reviewed and labs were noted. 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 Family History Family Medical History: Diabetes Mellitus, Cancer and [place] Social History Does patient currently use any type of tobacco product: No Have you used tobacco products in the last 12 months: No Type of Tobacco Use: None Alcohol Use: None Drug Use: None Medications Home Medications: albuterol Allergy (Verified 02/08/21 10:44) banana Allergy (Verified 02/08/21 10:46) cefaclor [From Ceclor] Allergy (Verified 02/08/21 10:46) corn Allergy (Verified 02/08/21 10:46) fosinopril [From Monopril] Allergy (Verified 02/08/21 10:46) homatropine [From Homatropaire] Allergy (Verified 02/08/21 10:46) hydrocodone Allergy (Verified 02/08/21 10:46) ipratropium [From Atrovent] Allergy (Verified 02/08/21 10:46) irbesartan [From Avapro] Allergy (Verified 02/08/21 10:46) isosorbide Allergy (Verified 02/08/21 10:46) Milk Containing Products Allergy (Verified 02/08/21 10:46) morphine Allergy (Verified 02/08/21 10:46) salmeterol [From Serevent] Allergy (Verified 02/08/21 10:46) tamsulosin Allergy (Verified 02/08/21 10:46) tramadol Allergy (Verified 02/08/21 10:46) valsartan [From Diovan] Allergy (Verified 02/08/21 10:46) CONTINUE taking the following medications levofloxacin 500 mg PO DAILY 02/05/21 [History] Physical Exam Vital Signs: Temperature 99.0 F Pulse Rate [Apical] 118 Pulse Rate [Left] 98 Pulse Rate 124 Respiratory Rate 16 Blood Pressure [Right Arm] 92/65 Blood Pressure [Left Arm] 126/62 Blood Pressure 135/62 O2 Sat by Pulse Oximetry 98 Patient is intubated and sedated. On mechanical ventilation. Plan Plan: Assessment: Respiratory failure on mechanical ventilation COPD Borderline blood pressure History of CHF History of hypertension Dementia Encephalopathy Pneumonia A Fib RVR Plan: Sedation and paralysis as needed. Monitor mental status. Continue antibiotics and bronchodilators. Diuresis per primary team when improved BP. Adjust vent settings with increased PEEP pressure. Repeat ABGs and adjust accordingly. Slight Acidemia without need for further changes in minute ventilation in the short term as it should be well tolerated. Consider solucortef and pressors as needed. Further management per primary team. Please do not hesitate to call back for further questions or concerns. Thank you for the consultation.
[2021-02-10] MEDS: XOPENEX 1.25 MG/3 ML NEBULE NEB SCH ×5 (00:43→18:44)
[2021-02-10] MEDS: NORCURON INJ 10 MG VIAL 50 MG in NS 50 ML IV 50 ML IV PRN ×2 (04:29→14:57)
[2021-02-10] MEDS: ZOSYN VIAL 3.375 GRAMS 3.375 G in NS 100 ML IV + SPIKE MINIBAG* 100 ML IV SCH ×3 (05:08→22:30)
[2021-02-10 05:30] LABS: ABG BASE EXCESS -1.7 mmol/L (-2.0-2.0); ABG HCO3 23.7 mmol/L (22-26)
[2021-02-10 05:31] LABS: ABG ALLEN TEST POS
[2021-02-10 07:00] LABS: BASOPHILS % (AUTO) 0.1 % (0.2-1.0); HEMATOCRIT 33.7 % (42.0-54.0); HEMOGLOBIN 11.5 g/dL (13.5-18.0); LYMPHOCYTES # (AUTO) 0.6 X10^3/uL (1.3-2.9); LYMPHOCYTES % (AUTO) 2.7 % (21.0-51.0); MEAN CORPUSCULAR HEMOGLOBIN 32.5 pg (27.0-34.0); MEAN CORPUSCULAR HGB CONC 34.1 g/dL (33.0-35.0); MEAN CORPUSCULAR VOLUME 95.4 fL (80.0-100.0); MEAN PLATELET VOLUME 8.3 fL (7.4-11.0); MONOCYTES % (AUTO) 4.5 % (0.0-13.0); NEUTROPHILS # (AUTO) 19.9 x10^3/uL (2.2-4.8); NEUTROPHILS % (AUTO) 92.7 % (42.0-75.0); PLATELET COUNT 201 X10^3/uL (150.0-450.0); RED BLOOD COUNT 3.53 X10^6/uL (4.7-6.0); RED CELL DISTRIBUTION WIDTH 13.4 % (11.6-16.5); WHITE BLOOD COUNT 21.4 X10^3/uL (3.6-10.0)
[2021-02-10 07:21] LABS: ALBUMIN 2.1 g/dL (3.4-5.0); CALCIUM 8.8 mg/dL (8.5-10.1); CARBON DIOXIDE 25.5 mmol/L (21-32); COR CA(FOR HYPOALB) 10.3 mg/dL (8.5-10.1); CREATININE 1.84 mg/dL (0.70-1.30)
[2021-02-10 07:46] LABS: BAND NEUTROPHILS % 4 % (0-10); PLATELET MORPHOLOGY COMMENT NORMAL (NORMAL)
[2021-02-10] MEDS ORDERED: PHARMACY COMMENT IV NR (08:30)
[2021-02-10] MEDS: PULMICORT NEB TX 0.5 MG NEB SCH ×2 (08:58→21:14)
[2021-02-10] MEDS: VANCOMYCIN IV *PREMIX 1.25 G/250 ML BAG 1.25 G/250 ML PIGGYBACK IV SCH ×2 (09:23→20:45)
--- NOTE | 2021-02-10 09:28 | RAD ---
HISTORYPNEUMONIASTUDYCHEST, 1 [id number] cardiomediastinal silhouette and support apparatus. Extensive pulmonary opacities appear slightly improved. No sizable effusion or visible pneumothorax. No acute osseous finding.IMPRESSIONExtensive but improving pulmonary opacities.Electronically signed by: Damian Baxter (Feb 10, 2021 09:25:08)
[2021-02-10] MEDS: LOVENOX INJ 40 MG SYR SC SCH (10:02)
[2021-02-10] MEDS: VERSED IV PREMIX 100 MG/100 ML IV.SOLN IV PRN (11:33)
[2021-02-10 12:13] LABS: ABG ALLEN TEST POS; ABG BASE EXCESS -0.2 mmol/L (-2.0-2.0); ABG HCO3 24.8 mmol/L (22-26)
[2021-02-10 14:25] LABS: ABG BASE EXCESS 0.7 mmol/L (-2.0-2.0); ABG HCO3 25.4 mmol/L (22-26)
[2021-02-10 14:26] LABS: ABG ALLEN TEST POS
--- NOTE | 2021-02-10 15:13 | PCM.PROG ---
Progress Note Progress Note for Day of Date of Exam: 02/10/21 Subjective Subjective: Patient seen at bedside. He is intubated, on mechanical ventilation, appropriately sedated. No acute events overnight. He is currently on FiO2 100%. Labs: WBC 21, Hgb 11.5, Plt 201, Na 144, K 4.1, Cr:1.84, Glucose 167 AB.36/42/182/23/100% on FiO2 100% CXR: Extensive but improving pulmonary opacities. CTA Chest(02/08): Bilateral perihilar airspace opacities may represent pneumonia, pulmonary edema, or ARDS. ECHO 02/05/21: EF 65%, moderate aortic valve stenosis, moderate pulmonary HTN Sputum Cx NGTD Blood Cx negative Plan: Continue IV Vancomycin and Zosyn. Optimize ventilation and medical management. Tele-critical care consulted, Dr White, appreciate the recommenda tions. Will decrease FiO2 and repeat ABG in 2 hours. Continue to monitor closely. Follow up AM labs and imaging. Critical care time spent 30-74 minutes in clinical assessment, reviewing labs/imaging, decision making, and documentation. Past Medical Family Social History Past Med/Fam/Surg Hx: No changes since H&P Allergies: Allergies albuterol Allergy (Verified 02/08/21 10:44) verified with scow captain and family member banana Allergy (Verified 02/08/21 10:46) cefaclor [From Ceclor] Allergy (Verified 02/08/21 10:46) corn Allergy (Verified 02/08/21 10:46) fosinopril [From Monopril] Allergy (Verified 02/08/21 10:46) homatropine [From Homatropaire] Allergy (Verified 02/08/21 10:46) hydrocodone Allergy (Verified 02/08/21 10:46) ipratropium [From Atrovent] Allergy (Verified 02/08/21 10:46) irbesartan [From Avapro] Allergy (Verified 02/08/21 10:46) isosorbide Allergy (Verified 02/08/21 10:46) Milk Containing Products Allergy (Verified 02/08/21 10:46) morphine Allergy (Verified 02/08/21 10:46) salmeterol [From Serevent] Allergy (Verified 02/08/21 10:46) tamsulosin Allergy (Verified 02/08/21 10:46) tramadol Allergy (Verified 02/08/21 10:46) valsartan [From Diovan] Allergy (Verified 02/08/21 10:46) Review of Systems ROS: No change since H&P Vital Signs and I&O's Vital Signs: Temperature 98.9 F Pulse Rate [Apical] 114 Pulse Rate [Left] 98 Pulse Rate 115 Respiratory Rate 16 Blood Pressure [Right Arm] 89/57 Blood Pressure [Left Arm] 112/58 Blood Pressure 135/62 O2 Sat by Pulse Oximetry 99 Intake and Output: Intake & Output 02/07/21 02/08/21 02/09/21 02/10/21 23:59 23:59 23:59 23:59 Intake Total 3937 / 3937 3044 / 3044 3454 / 3454 515 / 515 Output Total 1100 / 1100 200 / 200 Balance 3937 / 3937 3044 / 3044 2354 / 2354 315 / 315 Physical Exam Oriented: Other (Intubated, mechanical ventilation) Eyes: Normal Ear: Normal Nose: Normal Throat: Other (Intubated, mechanical ventilation) Respiratory: Generalized, Wheezes and Rhonchi Cardiovascular: Tachycardia and Irregular : Normal Auscultation: Bowel Sounds: Normal Tenderness: Normal Skin: Normal Musculoskeletal: Normal Psychiatric: Other (Sedated) Mood Description: Calm Affect: Flat Speech Pattern: Artificially Ventilated Laboratory and Diagnostics Result Diagrams: 02/10/21 06:27 02/10/21 06:25 Labs: 02/09/21 07:50 Sputum - Endotracheal Wash Sputum Culture - Preliminary 02/09/21 07:50 Sputum - Endotracheal Wash - Final 02/07/21 21:19 Sputum - Expectorated Sputum Sputum Culture - Final 02/07/21 21:19 Sputum - Expectorated Sputum - Final 02/05/21 14:50 Blood Blood Culture - Preliminary 02/05/21 14:48 Blood Blood Culture - Preliminary Laboratory WBC 21.4 X10^3/uL (3.6-10.0) H D 02/10/21 06:27 RBC 3.53 X10^6/uL (4.7-6.0) L 02/10/21 06:27 Hgb 11.5 g/dL (13.5-18.0) L D 02/10/21 06:27 Hct 33.7 % (42.0-54.0) L 02/10/21 06:27 MCV 95.4 fL (80.0-100.0) 02/10/21 06:27 MCH 32.5 pg (27.0-34.0) 02/10/21 06: MCHC 34.1 g/dL (33.0-35.0) 02/10/21 06:27 RDW 13.4 % (11.6-16.5) 02/10/21 06:27 Plt Count 201 X10^3/uL (150.0-450.0) 02/10/21 06:27 Plt Count Comment Adequate (ADEQUATE) 02/10/21 06:27 MPV 8.3 fL (7.4-11.0) 02/10/21 06:27 Neut % (Auto) 92.7 % (42.0-75.0) H 02/10/21 06:27 Lymph % (Auto) 2.7 % (21.0-51.0) L 02/10/21 06:27 [place] % (Auto) 4.5 % (0.0-13.0) 02/10/21 06:27 Eos % (Auto) 0.0 % (0.9-2.9) L 02/10/21 06:27 Baso % (Auto) 0.1 % (0.2-1.0) L 02/10/21 06:27 Neut # (Auto) 19.9 x10^3/uL (2.2-4.8) H 02/10/21 06:27 Lymph # (Auto) 0.6 X10^3/uL (1.3-2.9) L 02/10/21 06:27 [place] # (Auto) 1.0 x10^3/uL (0.3-0.8) H 02/10/21 06:27 Eos # (Auto) 0.0 x10^3/uL (0.0-0.2) 02/10/21 06:27 Baso # (Auto) 0.0 X10^3/uL (0.0-0.1) 02/10/21 06:27 Absolute Nucleated RBC 0.0 /100WBC 02/10/21 06:27 Total Counted 100 02/10/21 06:27 Neutrophils % (Manual) 84 % (39-76) H 02/10/21 06:27 Band Neutrophils % 4 % (0-10) 02/10/21 06:27 Lymphocytes % (Manual) 5 % (13-43) L 02/10/21 06:27 Monocytes % (Manual) 7 % (4-9) 02/10/21 06:27 Plt Morphology Comment Normal (NORMAL) 02/10/21 06:27 RBC Morphology Normal (NORMAL) 02/10/21 06:27 D-Dimer 0.98 ug/ml (0.0-0.57) H* 02/08/21 06:17 Sample Site Rr 02/10/21 14:20 ABG pH 7.410 (7.35-7.45) 02/10/21 14:20 ABG pCO2 40.0 mmHg (35.0-45.0) 02/10/21 14:20 ABG pO2 139.0 mmHg (80.0-100.0) H 02/10/21 14:20 ABG HCO3 25.4 mmol/L (22-26) 02/10/21 14:20 ABG O2 Saturation 99.0 % (90-100) 02/10/21 14:20 ABG Base Excess 0.7 mmol/L (-2.0-2.0) 02/10/21 14:20 [place] Test Pos 02/10/21 14:20 A-a Gradient 310.0 mmHg 02/10/21 14:20 FiO2 70.0 02/10/21 14:20 Blood Gas Comments Pt kvng well cdn/ej 02/10/21 14:20 Sodium 144 mmol/L (136-145) 02/10/21 06:25 Corrected Sodium 146 mmol/L (136-145) H 02/10/21 06:25 Potassium 4.1 mmol/L (3.5-5.1) 02/10/21 06:25 Chloride 109 mmol/L (98-107) H 02/10/21 06:25 Carbon Dioxide 25.5 mmol/L (21-32) 02/10/21 06:25 BUN 49 mg/dL (7-18) H 02/10/21 06:25 Creatinine 1.84 mg/dL (0.70-1.30) H 02/10/21 06:25 Est GFR (MDRD) Af Amer 45 (>60) L 02/10/21 06:25 Est GFR (MDRD) Non-Af 38 (>60) L 02/10/21 06:25 Glucose 167 mg/dL (65-99) H 02/10/21 06:25 Lactic Acid 2.7 mmol/L (0.4-2.0) H 02/09/21 12:53 Calcium 8.8 mg/dL (8.5-10.1) 02/10/21 06:25 Corrected Calcium 10.3 mg/dL (8.5-10.1) H 02/10/21 06:25 Total Bilirubin 0.70 mg/dL (0.2-1.0) 02/10/21 06:25 AST 15 Units/L (15-37) 02/10/21 06:25 ALT 16 Units/L (12-78) 02/10/21 06:25 Alkaline Phosphatase 49 Units/L (46-116) 02/10/21 06:25 Creatine Kinase 134 Units/L (39-308) 02/08/21 10:44 CK-MB (CK-2) 1.5 ng/mL (0-4.0) 02/08/21 10:44 CK/CKMB % Calc 1.1 % (<4) 02/08/21 10:44 Troponin I 0.39 ng/mL (0-1.5) 02/10/21 06:25 B-Natriuretic Peptide 147 pg/mL (0-79) H 02/05/21 14:48 Total Protein 6.0 g/dL (6.4-8.2) L 02/10/21 06:25 Albumin 2.1 g/dL (3.4-5.0) L 02/10/21 06:25 Globulin 3.9 g/dL (2.5-4.5) 02/10/21 06:25 Albumin/Globulin Ratio 0.5 Ratio (1.1-2.1) L 02/10/21 06:25 Specimen Type Catherized urine 02/09/21 06:24 Urine Color Yellow (YELLOW) 02/09/21 06:24 Urine Appearance Clear (CLEAR) 02/09/21 06:24 Urine pH 6.0 (5.0 - 8.0) 02/09/21 06:24 Ur Specific [place] 1.020 (1.000-1.030) 02/09/21 06:24 Urine Protein 2+ (NEGATIVE) 02/09/21 06:24 Urine Glucose (UA) Negative (NEGATIVE) 02/09/21 06:24 Urine Ketones Negative (NEGATIVE) 02/09/21 06:24 Urine Occult Blood Negative (NEGATIVE) 02/09/21 06:24 Urine Nitrite Negative (NEGATIVE) 02/09/21 06:24 Urine Bilirubin Negative (NEGATIVE) 02/09/21 06:24 Urine Urobilinogen Normal (NORMAL) 02/09/21 06:24 Ur Leukocyte Esterase Negative (NEGATIVE) 02/09/21 06:24 Urine RBC 0-2 /HPF (0-3) 02/09/21 06:24 Urine WBC 0-2 /HPF (0-5) 02/09/21 06:24 Ur Squamous Epith Cells Rare /HPF (NEGATIVE) 02/09/21 06:24 Amorphous Sediment Trace /HPF (NEGATIVE) 02/05/21 14:54 Urine Bacteria Trace /HPF (NEGATIVE) 02/09/21 06:24 Hyaline Casts Rare /LPF (NEGATIVE) 02/09/21 06:24 Ur Culture Indicated? No/not indicated 02/09/21 06:24 Vancomycin Trough 18.1 ug/mL (15-20) 02/09/21 20:56 Theophylline 9.2 ug/mL (10-20) L 02/09/21 05:35 SARS-CoV-2 (PCR) Negative (NEGATIVE) 02/08/21 07:55 Influenza Type A (PCR) Negative (NEGATIVE) 02/08/21 07:55 Influenza Type B (PCR) Negative (NEGATIVE) 02/08/21 07:55 RSV (PCR) Negative (NEGATIVE) 02/08/21 07:55 Plan (1) COPD exacerbation: Status: Acute (2) Acute respiratory failure: Status: Acute Qualifiers: Respiratory failure complication: hypoxia Qualified Code(s): J96.01 - Acute respiratory failure with hypoxia (3) Atrial fibrillation with rapid ventricular response: Status: Acute (4) Pneumonia: Status: Acute Qualifiers: Laterality: bilateral Lung location: lower lobe of lung Pneumonia type : due to unspecified organism Qualified Code(s): J18.9 - Pneumonia, unspecified organism (5) COPD (chronic obstructive pulmonary disease): Status: Chronic Qualifiers: COPD type: COPD with acute exacerbation Qualified Code(s): J44.1 - Chronic obstructive pulmonary disease with (acute) exacerbation (6) Generalized weakness: Status: Acute (7) CAD (coronary artery disease): Status: Chronic Qualifiers: Associated angina: unspecified whether angina present Coronary Disease- Associated Artery/Lesion type: unspecified vessel or lesion type [place] vs. transplanted heart: unspecified whether [place] or transplanted heart Qualified Code(s): I25.10 - Atherosclerotic heart disease of [place] coronary artery without angina pectoris (8) Dementia: Status: Acute Qualifiers: Dementia behavioral disturbance: without behavioral disturbance Dementia type: unspecified type Qualified Code(s): F03.90 - Unspecified dementia without behavioral disturbance
[2021-02-11] MEDS: XOPENEX 1.25 MG/3 ML NEBULE NEB SCH ×4 (00:22→16:32)
[2021-02-11] MEDS: NORCURON INJ 10 MG VIAL 50 MG in NS 50 ML IV 50 ML IV PRN ×2 (03:25→23:33)
[2021-02-11 04:36] LABS: ABG ALLEN TEST POS; ABG BASE EXCESS -1.7 mmol/L (-2.0-2.0); ABG HCO3 23.7 mmol/L (22-26)
[2021-02-11] MEDS: ZOSYN VIAL 3.375 GRAMS 3.375 G in NS 100 ML IV + SPIKE MINIBAG* 100 ML IV SCH ×3 (05:36→22:05)
[2021-02-11 06:00] LABS: BASOPHILS # (AUTO) 0.1 X10^3/uL (0.0-0.1); BASOPHILS % (AUTO) 0.2 % (0.2-1.0); HEMATOCRIT 36.5 % (42.0-54.0); HEMOGLOBIN 12.4 g/dL (13.5-18.0); LYMPHOCYTES # (AUTO) 0.7 X10^3/uL (1.3-2.9); LYMPHOCYTES % (AUTO) 2.2 % (21.0-51.0); MEAN CORPUSCULAR HGB CONC 33.9 g/dL (33.0-35.0); MEAN CORPUSCULAR VOLUME 94.4 fL (80.0-100.0); MEAN PLATELET VOLUME 8.1 fL (7.4-11.0); MONOCYTES # (AUTO) 1.3 x10^3/uL (0.3-0.8); MONOCYTES % (AUTO) 4.5 % (0.0-13.0); NEUTROPHILS # (AUTO) 27.9 x10^3/uL (2.2-4.8); NEUTROPHILS % (AUTO) 93.1 % (42.0-75.0); PLATELET COUNT 261 X10^3/uL (150.0-450.0); RED BLOOD COUNT 3.87 X10^6/uL (4.7-6.0); RED CELL DISTRIBUTION WIDTH 13.4 % (11.6-16.5); WHITE BLOOD COUNT 29.9 X10^3/uL (3.6-10.0)
[2021-02-11 06:16] LABS: ALBUMIN 2.2 g/dL (3.4-5.0); CARBON DIOXIDE 23.1 mmol/L (21-32); COR CA(FOR HYPOALB) 10.4 mg/dL (8.5-10.1); CREATININE 1.93 mg/dL (0.70-1.30); TOTAL PROTEIN 6.4 g/dL (6.4-8.2)
[2021-02-11 06:20] LABS: BAND NEUTROPHILS % 5 % (0-10); PLATELET MORPHOLOGY COMMENT NORMAL (NORMAL)
[2021-02-11] MEDS: LOPRESSOR INJ 5 MG AMP IVP PRN (08:19)
[2021-02-11] MEDS: PULMICORT NEB TX 0.5 MG NEB SCH ×2 (09:27→21:50)
[2021-02-11] MEDS: LOVENOX INJ 40 MG SYR SC SCH (09:30)
[2021-02-11] MEDS: VANCOMYCIN IV *PREMIX 1.25 G/250 ML BAG 1.25 G/250 ML PIGGYBACK IV SCH ×2 (09:31→21:49)
--- NOTE | 2021-02-11 09:54 | RAD ---
HISTORYPNEUMONIASTUDYCHEST, 1 VIEWCOMPARISONChest radiograph dated February 10, 2021.FINDINGSThe trachea is midline. There is an ET tube which terminates at the aortic knob level, above the [place]. There is a left-sided subclavian CVL whose tip overlies the SVC. Bilateral, right greater than left, airspace, ground-glass, and interstitial disease is seen which would imply pulmonary edema or infection/pneumonia. Please correlate medically for COVID-19 to account for this finding. There is a small volume right basilar pleural effusion also seen. No pneumothorax is evident. Overall, these findings are roughly unchanged from prior. The bones are grossly stable as well.IMPRESSIONStable chest without acute changes, as above. Diffuse bilateral airspace and interstitial disease.Stable lines, tubes, and catheters. No pneumothorax or other interval changes seen.Electronically signed by: MAEVE DAVIS III (Feb 11, 2021 09:52:24)
[2021-02-11] MEDS: VERSED IV PREMIX 100 MG/100 ML IV.SOLN IV PRN (11:00)
--- NOTE | 2021-02-11 11:50 | PCM.PROG ---
Progress Note Progress Note for Day of Date of Exam: 02/11/21 Subjective Subjective: Patient seen at bedside. He is intubated, on mechanical ventilation, appropriately sedated. Pt had rapid decrease in O2 saturation overnight in the low 80s and settings on ventilator adjusted back to PEEP 14 and FiO2 100%. Labs: WBC 29, Hgb 12, Plt 261, Na 149, K 4.2, Cr:1.93, Glucose 182 AB.36/42/65/23/92% on FiO2 100% CXR:Stable chest without acute changes, as above. Diffuse bilateral airspace and interstitial disease. CTA Chest(02/08): Bilateral perihilar airspace opacities may represent pneumonia, pulmonary edema, or ARDS. ECHO 02/05/21: EF 65%, moderate aortic valve stenosis, moderate pulmonary HTN Sputum Cx NGTD Blood Cx negative Plan: Continue IV Vancomycin and Zosyn. Optimize ventilation and medical management. Tele-critical care consulted, Dr White, appreciate the recommendations. Will add Diflucan, order NGT to be placed. Repeat COVID-19 test is negative. Continue to closely monitor patient. Critical care time spent 30-74 minutes in clinical assessment, reviewing labs/imaging, decision making, and documentation. Past Medical Family Social History Past Med/Fam/Surg Hx: No changes since H&P Allergies: Allergies albuterol Allergy (Verified 02/08/21 10:44) verified with transcripter and family member banana Allergy (Verified 02/08/21 10:46) cefaclor [From Ceclor] Allergy (Verified 02/08/21 10:46) corn Allergy (Verified 02/08/21 10:46) fosinopril [From Monopril] Allergy (Verified 02/08/21 10:46) homatropine [From Homatropaire] Allergy (Verified 02/08/21 10:46) hydrocodone Allergy (Verified 02/08/21 10:46) ipratropium [From Atrovent] Allergy (Verified 02/08/21 10:46) irbesartan [From Avapro] Allergy (Verified 02/08/21 10:46) isosorbide Allergy (Verified 02/08/21 10:46) Milk Containing Products Allergy (Verified 02/08/21 10:46) morphine Allergy (Verified 02/08/21 10:46) salmeterol [From Serevent] Allergy (Verified 02/08/21 10:46) tamsulosin Allergy (Verified 02/08/21 10:46) tramadol Allergy (Verified 02/08/21 10:46) valsartan [From Diovan] Allergy (Verified 02/08/21 10:46) Review of Systems ROS: No change since H&P Vital Signs and I&O's Vital Signs: Temperature 99.0 F Pulse Rate [Apical] 119 Pulse Rate [Left] 98 Pulse Rate 117 Respiratory Rate 18 Blood Pressure [Right Arm] 113/73 Blood Pressure [Left Arm] 112/58 Blood Pressure 114/66 O2 Sat by Pulse Oximetry 96 Intake and Output: Intake & Output 02/08/21 02/09/21 02/10/21 02/11/21 23:59 23:59 23:59 23:59 Intake Total 3044 / 3044 3454 / 3454 1464 / 1464 324 / 324 Output Total 1100 / 1100 1500 / 1500 500 / 500 Balance 3044 / 3044 2354 / 2354 -36 / -36 -176 / -176 Physical Exam Oriented: Other (Intubated, mechanical ventilation) Eyes: Normal Ear: Normal Nose: Normal Throat: Other (Intubated, mechanical ventilation) Respiratory: Generalized, Wheezes and Rhonchi Cardiovascular: Tachycardia and Irregular : Normal Auscultation: Bowel Sounds: Normal Tenderness: Normal Skin: Normal Musculoskeletal: Normal Psychiatric: Other (Sedated) Mood Description: Calm Affect: Flat Speech Pattern: Artificially Ventilated Laboratory and Diagnostics Result Diagrams: 02/12/21 04:08 02/12/21 08:24 Labs: 02/05/21 14:50 Blood Blood Culture - Final 02/05/21 14:48 Blood Blood Culture - Final 02/09/21 07:50 Sputum - Endotracheal Wash Sputum Culture - Preliminary 02/09/21 07:50 Sputum - Endotracheal Wash - Final 02/07/21 21:19 Sputum - Expectorated Sputum Sputum Culture - Final 02/07/21 21:19 Sputum - Expectorated Sputum - Final Laboratory WBC 29.9 X10^3/uL (3.6-10.0) H D 02/11/21 05:40 RBC 3.87 X10^6/uL (4.7-6.0) L 02/11/21 05:40 Hgb 12.4 g/dL (13.5-18.0) L 02/11/21 05:40 Hct 36.5 % (42.0-54.0) L 02/11/21 05:40 MCV 94.4 fL (80.0-100.0) 02/11/21 05:40 MCH 32.0 pg (27.0-34.0) 02/11/21 05:40 MCHC 33.9 g/dL (33.0-35.0) 02/11/21 05:40 RDW 13.4 % (11.6-16.5) 02/11/21 05:40 Plt Count 261 X10^3/uL (150.0-450.0) 02/11/21 05:40 Plt Count Comment Adequate (ADEQUATE) 02/11/21 05:40 MPV 8.1 fL (7.4-11.0) 02/11/21 05:40 Neut % (Auto) 93.1 % (42.0-75.0) H 02/11/21 05:40 Lymph % (Auto) 2.2 % (21.0-51.0) L 02/11/21 05:40 [place] % (Auto) 4.5 % (0.0-13.0) 02/11/21 05:40 Eos % (Auto) 0.0 % (0.9-2.9) L 02/11/21 05:40 Baso % (Auto) 0.2 % (0.2-1.0) 02/11/21 05:40 Neut # (Auto) 27.9 x10^3/uL (2.2-4.8) H 02/11/21 05:40 Lymph # (Auto) 0.7 X10^3/uL (1.3-2.9) L 02/11/21 05:40 [place] # (Auto) 1.3 x10^3/uL (0.3-0.8) H 02/11/21 05:40 Eos # (Auto) 0.0 x10^3/uL (0.0-0.2) 02/11/21 05:40 Baso # (Auto) 0.1 X10^3/uL (0.0-0.1) 02/11/21 05:40 Absolute Nucleated RBC 0.2 /100WBC 02/11/21 05:40 Total Counted 100 02/11/21 05:40 Neutrophils % (Manual) 88 % (39-76) H 02/11/21 05:40 Band Neutrophils % 5 % (0-10) 02/11/21 05:40 Lymphocytes % (Manual) 3 % (13-43) L 02/11/21 05:40 Monocytes % (Manual) 4 % (4-9) 02/11/21 05:40 Plt Morphology Comment Normal (NORMAL) 02/11/21 05:40 RBC Morphology Normal (NORMAL) 02/11/21 05:40 D-Dimer 0.98 ug/ml (0.0-0.57) H* 02/08/21 06:17 Sample Site Rra 02/11/21 04:35 ABG pH 7.360 (7.35-7.45) 02/11/21 04:35 ABG pCO2 42.0 mmHg (35.0-45.0) 02/11/21 04:35 ABG pO2 65.0 mmHg (80.0-100.0) L 02/11/21 04:35 ABG HCO3 23.7 mmol/L (22-26) 02/11/21 04:35 ABG O2 Saturation 92.0 % (90-100) 02/11/21 04:35 ABG Base Excess -1.7 mmol/L (-2.0-2.0) 02/11/21 04:35 [place] Test Pos 02/11/21 04:35 A-a Gradient 596.0 mmHg 02/11/21 04:35 FiO2 100.0 02/11/21 04:35 Blood Gas Comments Nany well mts 02/11/21 04:35 Sodium 149 mmol/L (136-145) H 02/11/21 05:40 Corrected Sodium 151 mmol/L (136-145) H 02/11/21 05:40 Potassium 4.2 mmol/L (3.5-5.1) 02/11/21 05:40 Chloride 112 mmol/L (98-107) H 02/11/21 05:40 Carbon Dioxide 23.1 mmol/L (21-32) 02/11/21 05:40 BUN 69 mg/dL (7-18) H 02/11/21 05:40 Creatinine 1.93 mg/dL (0.70-1.30) H 02/11/21 05:40 Est GFR (MDRD) Af Amer 43 (>60) L 02/11/21 05:40 Est GFR (MDRD) Non-Af 36 (>60) L 02/11/21 05:40 Glucose 182 mg/dL (65-99) H 02/11/21 05:40 Lactic Acid 2.7 mmol/L (0.4-2.0) H 02/09/21 12:53 Calcium 9.0 mg/dL (8.5-10.1) 02/11/21 05:40 Corrected Calcium 10.4 mg/dL (8.5-10.1) H 02/11/21 05:40 Total Bilirubin 0.60 mg/dL (0.2-1.0) 02/11/21 05:40 AST 24 Units/L (15-37) 02/11/21 05:40 ALT 17 Units/L (12-78) 02/11/21 05:40 Alkaline Phosphatase 63 Units/L (46-116) 02/11/21 05:40 Creatine Kinase 134 Units/L (39-308) 02/08/21 10:44 CK-MB (CK-2) 1.5 ng/mL (0-4.0) 02/08/21 10:44 CK/CKMB % Calc 1.1 % (<4) 02/08/21 10:44 Troponin I 0.39 ng/mL (0-1.5) 02/10/21 06:25 B-Natriuretic Peptide 147 pg/mL (0-79) H 02/05/21 14:48 Total Protein 6.4 g/dL (6.4-8.2) 02/11/21 05:40 Albumin 2.2 g/dL (3.4-5.0) L 02/11/21 05:40 Globulin 4.2 g/dL (2.5-4.5) 02/11/21 05:40 Albumin/Globulin Ratio 0.5 Ratio (1.1-2.1) L 02/11/21 05:40 Specimen Type Catherized urine 02/09/21 06:24 Urine Color Yellow (YELLOW) 02/09/21 06:24 Urine Appearance Clear (CLEAR) 02/09/21 06:24 Urine pH 6.0 (5.0 - 8.0) 02/09/21 06:24 Ur Specific [place] 1.020 (1.000-1.030) 02/09/21 06:24 Urine Protein 2+ (NEGATIVE) 02/09/21 06:24 Urine Glucose (UA) Negative (NEGATIVE) 02/09/21 06:24 Urine Ketones Negative (NEGATIVE) 02/09/21 06:24 Urine Occult Blood Negative (NEGATIVE) 02/09/21 06:24 Urine Nitrite Negative (NEGATIVE) 02/09/21 06:24 Urine Bilirubin Negative (NEGATIVE) 02/09/21 06:24 Urine Urobilinogen Normal (NORMAL) 02/09/21 06:24 Ur Leukocyte Esterase Negative (NEGATIVE) 02/09/21 06:24 Urine RBC 0-2 /HPF (0-3) 02/09/21 06:24 Urine WBC 0-2 /HPF (0-5) 02/09/21 06:24 Ur Squamous Epith Cells Rare /HPF (NEGATIVE) 02/09/21 06:24 Amorphous Sediment Trace /HPF (NEGATIVE) 02/05/21 14:54 Urine Bacteria Trace /HPF (NEGATIVE) 02/09/21 06:24 Hyaline Casts Rare /LPF (NEGATIVE) 02/09/21 06:24 Ur Culture Indicated? No/not indicated 02/09/21 06:24 Vancomycin Trough 18.1 ug/mL (15-20) 02/09/21 20:56 Theophylline 9.2 ug/mL (10-20) L 02/09/21 05:35 SARS-CoV-2 (PCR) Negative (NEGATIVE) 02/08/21 07:55 Influenza Type A (PCR) Negative (NEGATIVE) 02/08/21 07:55 Influenza Type B (PCR) Negative (NEGATIVE) 02/08/21 07:55 RSV (PCR) Negative (NEGATIVE) 02/08/21 07:55 SARS CoV-2 RNA Rapid IVET Negative (NEGATIVE) 02/11/21 10:47 Plan (1) COPD exacerbation: Status: Acute (2) Acute respiratory failure: Status: Acute Qualifiers: Respiratory failure complication: hypoxia Qualified Code(s): J96.01 - Acute respiratory failure with hypoxia (3) Atrial fibrillation with rapid ventricular response: Status: Acute (4) Pneumonia: Status: Acute Qualifiers: Laterality: bilateral Lung location: lower lobe of lung Pneumonia type: due to unspecified organism Qualified Code(s): J18.9 - Pneumonia, unspecified organism (5) COPD (chronic obstructive pulmonary disease): Status: Chronic Qualifiers: COPD type: COPD with acute exacerbation Qualified Code(s): J44.1 - Chronic obstructive pulmonary disease with (acute) exacerbation (6) Generalized weakness: Status: Acute (7) CAD (coronary artery disease): Status: Chronic Qualifiers: Associated angina: unspecified whether angina present Coronary Disease- Associated Artery/Lesion type: unspecified vessel or lesion type [place] vs. transplanted heart: unspecified whether [place] or transplanted heart Qualified Code(s): I25.10 - Atherosclerotic heart disease of [place] coronary artery without angina pectoris (8) Dementia: Status: Acute Qualifiers: Dementia behavioral disturbance: without behavioral disturbance Dementia type: unspecified type Qualified Code(s): F03.90 - Unspecified dementia without behavioral disturbance
[2021-02-11] MEDS ORDERED: DIFLUCAN 200 MG IV PREMIX* 200 MG/100 ML BAG IV ONE (15:25)
[2021-02-11] MEDS: DIFLUCAN 100 MG IV (MIX by PHARMACY)* 100 MG/50 ML BAG IV SCH (16:32)
--- NOTE | 2021-02-11 16:32 | RAD ---
EXAM: ABDOMEN X-RAY (or KUB)HISTORY: Nasogastric tube verification status post placement.TECHNIQUE: Supine viewCOMPARISON: None.FINDINGS:Nasogastric tube is noted with the distal tip at the expected location of the gastroesophageal junction. Recommend further advancement into the stomach.There are up to 7.2 cm dilated air and stool-filled large bowel loops (rectum excluded from [id number]); DDx includes obstipation and/or ileus. Clinical correlation is advised.There is no gross organomegaly, free intraperitoneal air, or suspicious calcifications seen. The visualized bony structures are within normal limits.IMPRESSION:1. Nasogastric tube is noted with the distal tip at the expected location of the gastroesophageal junction. Recommend further advancement into the stomach.2. Up to 7.2 cm dilated air and stool-filled large bowel loops (rectum excluded from [id number]); DDx includes obstipation and/or ileus. Clinical correlation is advised.Electronically signed by: Manny Dhillon (Feb 11, 2021 16:31:42)
[2021-02-11] MEDS: LACRI-LUBE S.O.P. AFFEYE SCH ×2 (17:32→21:45)
--- NOTE | 2021-02-11 19:57 | RAD ---
EXAM: ABDOMEN X-RAY (or KUB)HISTORY: Verification of NG tube position status post tube placement.TECHNIQUE: 1 viewCOMPARISON: None available.FINDINGS:Nasogastric tube is noted with the distal tip at the gastroesophageal junction. Recommend further advancement into the stomach.Abundant fecal material is seen within the distal large bowel loops and up to rectum which may represent constipation in the appropriate clinical setting.Abundant air is seen within up to 5.6 cm dilated large bowel loops (proximal to the fecal column, which may represent obstipation and/or ileus.No gross organomegaly, free intraperitoneal air, or suspicious calcifications seen.IMPRESSION:1. Nasogastric tube is noted with the distal tip at the gastroesophageal junction. Recommend further advancement into the stomach.2. Abundant fecal material is seen within the distal large bowel loops and up to rectum which may represent constipation in the appropriate clinical setting.3. Abundant air is seen within up to 5.6 cm dilated large bowel loops (proximal to the fecal column, which may represent obstipation and/or ileus in the appropriate clinical setting.Electronically signed by: Manny Dhillon (Feb 11, 2021 19:56:39)
--- NOTE | 2021-02-11 21:07 | RAD ---
EXAM: ABDOMEN X-RAY (or KUB)HISTORY: Nasogastric tube verification status post placement.TECHNIQUE: Supine viewCOMPARISON: None.FINDINGS:Nasogastric tube is noted with the distal tip within the right upper quadrant, presumably within the first portion of the duodenum.Abundant fecal material is seen within the distal large bowel loops; nonspecific finding; rule out constipation.There are up to 6 cm dilated large bowel loops proximal to the fecal column; DDx includes constipation/ileus.There is no gross organomegaly, free intraperitoneal air, or suspicious calcifications seen. Multilevel DDD is seen throughout the lumbar spine. The visualized bony structures are otherwise within normal limits.IMPRESSION:1. Nasogastric tube is noted with the distal tip within the right upper quadrant, presumably within the first portion of the duodenum.2. Abundant fecal material is seen within the distal large bowel loops; nonspecific finding; rule out constipation.3. Up to 6 cm dilated large bowel loops proximal to the fecal column; DDx includes constipation/ileus.Electronically signed by: Manny Dhillon (Feb 11, 2021 21:06:28)
[2021-02-11] MEDS ORDERED: SALINE 0.9% 3 ML NEB TX ONE (21:12)
[2021-02-11 21:42] LABS: CREATININE 1.66 mg/dL (0.70-1.30)
[2021-02-11 21:47] LABS: VANCOMYCIN,TROUGH 28.5 ug/mL (15-20)
[2021-02-12] MEDS: LOPRESSOR INJ 5 MG AMP IVP PRN (00:34)
[2021-02-12] MEDS: XOPENEX 1.25 MG/3 ML NEBULE NEB SCH ×4 (00:35→16:54)
[2021-02-12 05:08] LABS: ABG BASE EXCESS 1.1 mmol/L (-2.0-2.0); ABG HCO3 25.1 mmol/L (22-26)
[2021-02-12 05:09] LABS: ABG ALLEN TEST POS
[2021-02-12] MEDS: ZOSYN VIAL 3.375 GRAMS 3.375 G in NS 100 ML IV + SPIKE MINIBAG* 100 ML IV SCH ×3 (05:10→21:39)
[2021-02-12 05:28] LABS: BASOPHILS # (AUTO) 0.2 X10^3/uL (0.0-0.1); BASOPHILS % (AUTO) 0.7 % (0.2-1.0); EOSINOPHILS % (AUTO) 0.1 % (0.9-2.9); HEMATOCRIT 33.7 % (42.0-54.0); HEMOGLOBIN 11.6 g/dL (13.5-18.0); LYMPHOCYTES # (AUTO) 0.9 X10^3/uL (1.3-2.9); LYMPHOCYTES % (AUTO) 3.8 % (21.0-51.0); MEAN CORPUSCULAR HEMOGLOBIN 32.4 pg (27.0-34.0); MEAN CORPUSCULAR HGB CONC 34.4 g/dL (33.0-35.0); MEAN CORPUSCULAR VOLUME 94.3 fL (80.0-100.0); MEAN PLATELET VOLUME 8.5 fL (7.4-11.0); MONOCYTES # (AUTO) 0.9 x10^3/uL (0.3-0.8); NEUTROPHILS # (AUTO) 20.7 x10^3/uL (2.2-4.8); NEUTROPHILS % (AUTO) 91.4 % (42.0-75.0); PLATELET COUNT 254 X10^3/uL (150.0-450.0); RED BLOOD COUNT 3.57 X10^6/uL (4.7-6.0); RED CELL DISTRIBUTION WIDTH 13.4 % (11.6-16.5); WHITE BLOOD COUNT 22.6 X10^3/uL (3.6-10.0)
[2021-02-12 05:43] LABS: CALCIUM 8.8 mg/dL (8.5-10.1); CARBON DIOXIDE 24.6 mmol/L (21-32); COR CA(FOR HYPOALB) 10.4 mg/dL (8.5-10.1); CREATININE 1.53 mg/dL (0.70-1.30); TOTAL PROTEIN 6.1 g/dL (6.4-8.2)
[2021-02-12 06:13] LABS: BAND NEUTROPHILS % 4 % (0-10); PLATELET MORPHOLOGY COMMENT NORMAL (NORMAL)
--- NOTE | 2021-02-12 07:10 | RAD ---
HISTORYPNEUMONIA F/USTUDYCHEST, 1 [id number]/01/2021.TECHNIQUEAP view of the chestFINDINGSET tube in good position. Left subclavian central line is in stable position. NG tube courses below the visualized field of view. Patient is rotated. Partial silhouetting of the right heart border. Improved appearance of bilateral airspace opacities particularly on the left. Near diffuse right lung airspace opacities remain. Cannot exclude small right pleural effusion. No pneumothorax.IMPRESSIONInterval improvement in bilateral airspace opacities, particularly on the left. This is consistent with improved pneumonia.Electronically signed by: Jared Golden (Feb 12, 2021 07:07:46)
[2021-02-12] MEDS: LOVENOX INJ 40 MG SYR SC SCH (08:26)
[2021-02-12] MEDS ORDERED: PHARMACY COMMENT IV NR (08:30)
[2021-02-12] MEDS ORDERED: ARTIFICIAL TEARS DROPS AFFEYE PRN (08:30)
[2021-02-12 09:03] LABS: CREATININE 1.56 mg/dL (0.70-1.30)
[2021-02-12] MEDS ORDERED: DULCOLAX SUPPOSITORY 10 MG RECTAL ONE (09:17)
[2021-02-12 09:18] LABS: VANCOMYCIN,TROUGH 23.9 ug/mL (15-20)
[2021-02-12] MEDS: D5W 1000 ML IV 1,000 ML IV SCH ×2 (09:31→21:39)
[2021-02-12] MEDS: DIFLUCAN 100 MG IV (MIX by PHARMACY)* 100 MG/50 ML BAG IV SCH (09:31)
[2021-02-12] MEDS: PULMICORT NEB TX 0.5 MG NEB SCH ×2 (09:46→20:00)
--- NOTE | 2021-02-12 10:01 | PCM.PROG ---
Progress Note Progress Note for Day of Date of Exam: 02/12/21 Subjective Subjective: Patient seen at bedside. He is intubated, on mechanical ventilation, appropriately sedated. Improved ABG this morning, FiO2 was decreased to 85%. Labs: WBC 22, Hgb 11.6, Plt 254, Na 153, K 4.3, Cr:1.53, Glucose 145 AB.44/37/136/25/99% on FiO2 100% CXR: Interval improvement in bilateral airspace opacities, particularly on the left. This is consistent with improved pneumonia. CTA Chest(02/08): Bilateral perihilar airspace opacities may represent pneumonia, pulmonary edema, or ARDS. ECHO 02/05/21: EF 65%, moderate aortic valve stenosis, moderate pulmonary HTN Sputum Cx NGTD Blood Cx negative Plan: Continue IV Vancomycin, Zosyn, Diflucan. Optimize ventilation and medical management. Tele-critical care consulted, Dr White, appreciate the recommendations. NGT placed yesterday, KUB after showing constipation, order dulcolax suppository. Hypernatremia on labs, change IVF to D5w@80ml/h. Nutrition consult placed to pharmacy. Pt continues to be febrile, repeat blood cultures. Continue to closely monitor patient. Critical care time spent 30-74 minutes in clinical assessment, reviewing labs/imaging, decision making, and documentation. Past Medical Family Social History Past Med/Fam/Surg Hx: No changes since H&P Allergies: Allergies albuterol Allergy (Verified 02/08/21 10:44) verified with bellhop captain and family member banana Allergy (Verified 02/08/21 10:46) cefaclor [From Ceclor] Allergy (Verified 02/08/21 10:46) corn Allergy (Verified 02/08/21 10:46) fosinopril [From Monopril] Allergy (Verified 02/08/21 10:46) homatropine [From Homatropaire] Allergy (Verified 02/08/21 10:46) hydrocodone Allergy (Verified 02/08/21 10:46) ipratropium [From Atrovent] Allergy (Verified 02/08/21 10:46) irbesartan [From Avapro] Allergy (Verified 02/08/21 10:46) isosorbide Allergy (Verified 02/08/21 10:46) Milk Containing Products Allergy (Verified 02/08/21 10:46) morphine Allergy (Verified 02/08/21 10:46) salmeterol [From Serevent] Allergy (Verified 02/08/21 10:46) tamsulosin Allergy (Verified 02/08/21 10:46) tramadol Allergy (Verified 02/08/21 10:46) valsartan [From Diovan] Allergy (Verified 02/08/21 10:46) Review of Systems ROS: No change since H&P Vital Signs and I&O's Vital Signs: Temperature 100.7 F Pulse Rate [Apical] 124 Pulse Rate [Left] 98 Pulse Rate 112 Respiratory Rate 18 Blood Pressure [Right Arm] 129/70 Blood Pressure [Left Arm] 114/59 Blood Pressure 114/59 O2 Sat by Pulse Oximetry 99 Intake and Output: Intake & Output 02/09/21 02/10/21 02/11/21 02/12/21 23:59 23:59 23:59 23:59 Intake Total 3454 / 3454 1464 / 1464 2016 241 / 241 Output Total 1100 / 1100 1500 / 1500 1900 / 1900 500 / 500 Balance 2354 / 2354 -36 / -36 117 / 117 -259 / -259 Physical Exam Oriented: Other (Intubated, mechanical ventilation) Eyes: Normal Ear: Normal Nose: Normal Throat: Other (Intubated, mechanical ventilation) Respiratory: Generalized and Rhonchi Cardiovascular: Tachycardia and Irregular : Normal Auscultation: Bowel Sounds: Normal Tenderness: Normal Skin: Normal Musculoskeletal: Normal Psychiatric: Other (Sedated) Mood Description: Calm Affect: Flat Speech Pattern: Artificially Ventilated Laboratory and Diagnostics Result Diagrams: 02/12/21 04:08 02/12/21 08:24 Labs: 02/09/21 07:50 Sputum - Endotracheal Wash Sputum Culture - Final 02/09/21 07:50 Sputum - Endotracheal Wash - Final 02/05/21 14:50 Blood Blood Culture - Final 02/05/21 14:48 Blood Blood Culture - Final 02/07/21 21:19 Sputum - Expectorated Sputum Sputum Culture - Final 02/07/21 21:19 Sputum - Expectorated Sputum - Final Laboratory WBC 22.6 X10^3/uL (3.6-10.0) H 02/12/21 04:08 RBC 3.57 X10^6/uL (4.7-6.0) L 02/12/21 04:08 Hgb 11.6 g/dL (13.5-18.0) L 02/12/21 04:08 Hct 33.7 % (42.0-54.0) L 02/12/21 04:08 MCV 94.3 fL (80.0-100.0) 02/12/21 04:08 MCH 32.4 pg (27.0-34.0) 02/12/21 04:08 MCHC 34.4 g/dL (33.0-35.0) 02/12/21 04:08 RDW 13.4 % (11.6-16.5) 02/12/21 04:08 Plt Count 254 X10^3/uL (150.0-450.0) 02/12/21 04:08 Plt Count Comment Adequate (ADEQUATE) 02/12/21 04:08 MPV 8.5 fL (7.4-11.0) 02/12/21 04:08 Neut % (Auto) 91.4 % (42.0-75.0) H 02/12/21 04:08 Lymph % (Auto) 3.8 % (21.0-51.0) L 02/12/21 04:08 [place] % (Auto) 4.0 % (0.0-13.0) 02/12/21 04:08 Eos % (Auto) 0.1 % (0.9-2.9) L 02/12/21 04:08 Baso % (Auto) 0.7 % (0.2-1.0) 02/12/21 04:08 Neut # (Auto) 20.7 x10^3/uL (2.2-4.8) H 02/12/21 04:08 Lymph # (Auto) 0.9 X10^3/uL (1.3-2.9) L 02/12/21 04:08 [place] # (Auto) 0.9 x10^3/uL (0.3-0.8) H 02/12/21 04:08 Eos # (Auto) 0.0 x10^3/uL (0.0-0.2) 02/12/21 04:08 Baso # (Auto) 0.2 X10^3/uL (0.0-0.1) H 02/12/21 04:08 Absolute Nucleated RBC 0.0 /100WBC 02/12/21 04:08 Total Counted 100 02/12/21 04:08 Neutrophils % (Manual) 89 % (39-76) H 02/12/21 04:08 Band Neutrophils % 4 % (0-10) 02/12/21 04:08 Lymphocytes % (Manual) 4 % (13-43) L 02/12/21 04:08 Monocytes % (Manual) 3 % (4-9) L 02/12/21 04:08 Plt Morphology Comment Normal (NORMAL) 02/12/21 04:08 RBC Morphology Normal (NORMAL) 02/12/21 04:08 D-Dimer 0.98 ug/ml (0.0-0.57) H* 02/08/21 06:17 Sample Site Rr 02/12/21 05:00 ABG pH 7.440 (7.35-7.45) 02/12/21 05:00 ABG pCO2 37.0 mmHg (35.0-45.0) 02/12/21 05:00 ABG pO2 136.0 mmHg (80.0-100.0) H 02/12/21 05:00 ABG HCO3 25.1 mmol/L (22-26) 02/12/21 05:00 ABG O2 Saturation 99.0 % (90-100) 02/12/21 05:00 ABG Base Excess 1.1 mmol/L (-2.0-2.0) 02/12/21 05:00 [place] Test Pos 02/12/21 05:00 A-a Gradient 531.0 mmHg 02/12/21 05:00 FiO2 100.0 02/12/21 05:00 Blood Gas Comments Nany well 02/12/21 05:00 Sodium 153 mmol/L (136-145) H* 02/12/21 04:08 Corrected Sodium 154 mmol/L (136-145) H 02/12/21 04:08 Potassium 4.3 mmol/L (3.5-5.1) 02/12/21 04:08 Chloride 118 mmol/L (98-107) H* 02/12/21 04:08 Carbon Dioxide 24.6 mmol/L (21-32) 02/12/21 04:08 BUN 66 mg/dL (7-18) H 02/12/21 04:08 Creatinine 1.56 mg/dL (0.70-1.30) H 02/12/21 08:24 Est GFR (MDRD) Af Amer 56 (>60) L 02/12/21 04:08 Est GFR (MDRD) Non-Af 46 (>60) L 02/12/21 04:08 Glucose 145 mg/dL (65-99) H 02/12/21 04:08 Lactic Acid 2.7 mmol/L (0.4-2.0) H 02/09/21 12:53 Calcium 8.8 mg/dL (8.5-10.1) 02/12/21 04:08 Corrected Calcium 10.4 mg/dL (8.5-10.1) H 02/12/21 04:08 Total Bilirubin 0.60 mg/dL (0.2-1.0) 02/12/21 04:08 AST 24 Units/L (15-37) 02/12/21 04:08 ALT 20 Units/L (12-78) 02/12/21 04:08 Alkaline Phosphatase 70 Units/L (46-116) 02/12/21 04:08 Creatine Kinase 134 Units/L (39-308) 02/08/21 10:44 CK-MB (CK-2) 1.5 ng/mL (0-4.0) 02/08/21 10:44 CK/CKMB % Calc 1.1 % (<4) 02/08/21 10:44 Troponin I 0.39 ng/mL (0-1.5) 02/10/21 06:25 B-Natriuretic Peptide 147 pg/mL (0-79) H 02/05/21 14:48 Total Protein 6.1 g/dL (6.4-8.2) L 02/12/21 04:08 Albumin 2.0 g/dL (3.4-5.0) L 02/12/21 04:08 Globulin 4.1 g/dL (2.5-4.5) 02/12/21 04:08 Albumin/Globulin Ratio 0.5 Ratio (1.1-2.1) L 02/12/21 04:08 Specimen Type Catherized urine 02/09/21 06:24 Urine Color Yellow (YELLOW) 02/09/21 06:24 Urine Appearance Clear (CLEAR) 02/09/21 06:24 Urine pH 6.0 (5.0 - 8.0) 02/09/21 06:24 Ur Specific [place] 1.020 (1.000-1.030) 02/09/21 06:24 Urine Protein 2+ (NEGATIVE) 02/09/21 06:24 Urine Glucose (UA) Negative (NEGATIVE) 02/09/21 06:24 Urine Ketones Negative (NEGATIVE) 02/09/21 06:24 Urine Occult Blood Negative (NEGATIVE) 02/09/21 06:24 Urine Nitrite Negative (NEGATIVE) 02/09/21 06:24 Urine Bilirubin Negative (NEGATIVE) 02/09/21 06:24 Urine Urobilinogen Normal (NORMAL) 02/09/21 06:24 Ur Leukocyte Esterase Negative (NEGATIVE) 02/09/21 06:24 Urine RBC 0-2 /HPF (0-3) 02/09/21 06:24 Urine WBC 0-2 /HPF (0-5) 02/09/21 06:24 Ur Squamous Epith Cells Rare /HPF (NEGATIVE) 02/09/21 06:24 Amorphous Sediment Trace /HPF (NEGATIVE) 02/05/21 14:54 Urine Bacteria Trace /HPF (NEGATIVE) 02/09/21 06:24 Hyaline Casts Rare /LPF (NEGATIVE) 02/09/21 06:24 Ur Culture Indicated? No/not indicated 02/09/21 06:24 Vancomycin Trough 23.9 ug/mL (15-20) H* 02/12/21 08:24 Theophylline 9.2 ug/mL (10-20) L 02/09/21 05:35 SARS-CoV-2 (PCR) Negative (NEGATIVE) 02/08/21 07:55 Influenza Type A (PCR) Negative (NEGATIVE) 02/08/21 07:55 Influenza Type B (PCR) Negative (NEGATIVE) 02/08/21 07:55 RSV (PCR) Negative (NEGATIVE) 02/08/21 07:55 SARS CoV-2 RNA Rapid IVET Negative (NEGATIVE) 02/11/21 10:47 Plan (1) COPD exacerbation: Status: Acute (2) Acute respiratory failure: Status: Acute Qualifiers: Respiratory failure complication: hypoxia Qualified Code(s): J96.01 - Acute respiratory failure with hypoxia (3) Atrial fibrillation with rapid ventricular response: Status: Acute (4) Pneumonia: Status: Acute Qualifiers: Laterality: bilateral Lung location: lower lobe of lung Pneumonia type: due to unspecified organism Qualified Code(s): J18.9 - Pneumonia, unspecified organism (5) COPD (chronic obstructive pulmonary disease): Status: Chronic Qualifiers: COPD type: COPD with acute exacerbation Qualified Code(s): J44.1 - Chronic obstructive pulmonary disease with (acute) exacerbation (6) Generalized weakness: Status: Acute (7) CAD (coronary artery disease): Status: Chronic Qualifiers: Associated angina: unspecified whether angina present Coronary Disease- Associated Artery/Lesion type: unspecified vessel or lesion type [place] vs. transplanted heart: unspecified whether [place] or transplanted heart Qualified Code(s): I25.10 - Atherosclerotic heart disease of [place] coronary artery without angina pectoris (8) Dementia: Status: Acute Qualifiers: Dementia behavioral disturbance: without behavioral disturbance Dementia type: unspecified type Qualified Code(s): F03.90 - Unspecified dementia without behavioral disturbance
[2021-02-12] MEDS ORDERED: TOPROL XL PO SCH (11:00)
[2021-02-12] MEDS: VERSED IV PREMIX 100 MG/100 ML IV.SOLN IV PRN (12:01)
[2021-02-12] MEDS: NORCURON INJ 10 MG VIAL 50 MG in NS 50 ML IV 50 ML IV PRN (13:28)
[2021-02-12] MEDS: TYLENOL 325 MG TAB PO PRN (15:15)
--- NOTE | 2021-02-12 17:54 | DR.CONSULT ---
CONSULT Consultation for Day of: Date: 02/12/21 Chief Complaint Chief Complaint: Respiratory failure Allergies Allergies Allergy/AdvReac Type Severity Reaction Status Date / Time albuterol Allergy Verified 02/08/21 10:44 banana Allergy Verified 02/08/21 10:46 cefaclor [From Ceclor] Allergy Verified 02/08/21 10:46 corn Allergy Verified 02/08/21 10:46 fosinopril [From Monopril] Allergy Verified 02/08/21 10:46 homatropine Allergy Verified 02/08/21 10:46 [From Homatropaire] hydrocodone Allergy Verified 02/08/21 10:46 ipratropium [From Atrovent] Allergy Verified 02/08/21 10:46 irbesartan [From Avapro] Allergy Verified 02/08/21 10:46 isosorbide Allergy Verified 02/08/21 10:46 Milk Containing Products Allergy Verified 02/08/21 10:46 morphine Allergy Verified 02/08/21 10:46 salmeterol [From Serevent] Allergy Verified 02/08/21 10:46 tamsulosin Allergy Verified 02/08/21 10:46 tramadol Allergy Verified 02/08/21 10:46 valsartan [From Diovan] Allergy Verified 02/08/21 10:46 History of Present Illness History of Present Illness: 81 yo male intubated with resp failure Has relatively high O2 requirements Remains febrile Hypernatremia worse today CXR read as improved bilateral airspace opacities I/o [id number]/[id number] 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 Family History Family Medical History: Diabetes Mellitus, Cancer and [place] Social History Does patient currently use any type of tobacco product: No Have you used tobacco products in the last 12 months: No Type of Tobacco Use: None Alcohol Use: None Drug Use: None Medications Home Medications: albuterol Allergy (Verified 02/08/21 10:44) banana Allergy (Verified 02/08/21 10:46) cefaclor [From Ceclor] Allergy (Verified 02/08/21 10:46) corn Allergy (Verified 02/08/21 10:46) fosinopril [From Monopril] Allergy (Verified 02/08/21 10:46) homatropine [From Homatropaire] Allergy (Verified 02/08/21 10:46) hydrocodone Allergy (Verified 02/08/21 10:46) ipratropium [From Atrovent] Allergy (Verified 02/08/21 10:46) irbesartan [From Avapro] Allergy (Verified 02/08/21 10:46) isosorbide Allergy (Verified 02/08/21 10:46) Milk Containing Products Allergy (Verified 02/08/21 10:46) morphine Allergy (Verified 02/08/21 10:46) salmeterol [From Serevent] Allergy (Verified 02/08/21 10:46) tamsulosin Allergy (Verified 02/08/21 10:46) tramadol Allergy (Verified 02/08/21 10:46) valsartan [From Diovan] Allergy (Verified 02/08/21 10:46) CONTINUE taking the following medications levofloxacin 500 mg PO DAILY 02/05/21 [History] Physical Exam Vital Signs: Temperature 101.4 F Pulse Rate [Apical] 112 Pulse Rate [Left] 98 Pulse Rate 108 Respiratory Rate 18 Blood Pressure [Right Arm] 108/60 Blood Pressure [Left Arm] 114/59 Blood Pressure 114/59 O2 Sat by Pulse Oximetry 100 Plan Plan: Acute resp failure -Attributed to PNA, with increased o2 requirements. Appears to be on peep 14, 85%. -continue mechanical ventilation and wean to keep sats >90%, recommend attempt to wean to 12 if able -continue broad spectrum abx Sedation -currently on midazolam and paralytic infusion -consider addition of low dose fentanyl (25 - 50/h) and attempt to d/c paralytics Fever -presumed due to PNA -follow cx -cont vanc, zoysn, fluconazole -wbc improving, trend Hypernatremia -D5 increased today, follow Na OMKAR -Renal indices slowly improving and UOP good -continue to trend A fib with RVR -on intermittent rate controlling agents -consider dilt or amio gtt to see if allows for better rate control DVT proph - SC lovenox Nutrition - on TF
[2021-02-13] MEDS: XOPENEX 1.25 MG/3 ML NEBULE NEB SCH ×4 (00:05→17:25)
[2021-02-13] MEDS: NORCURON INJ 10 MG VIAL 50 MG in NS 50 ML IV 50 ML IV PRN (02:04)
[2021-02-13 04:53] LABS: ABG BASE EXCESS 4.4 mmol/L (-2.0-2.0)
[2021-02-13 04:54] LABS: ABG ALLEN TEST POS; ABG HCO3 28.4 mmol/L (22-26)
[2021-02-13 05:57] LABS: BASOPHILS % (AUTO) 0.2 % (0.2-1.0); EOSINOPHILS # (AUTO) 0.2 x10^3/uL (0.0-0.2); HEMATOCRIT 31.3 % (42.0-54.0); HEMOGLOBIN 10.8 g/dL (13.5-18.0); LYMPHOCYTES # (AUTO) 1.2 X10^3/uL (1.3-2.9); LYMPHOCYTES % (AUTO) 6.4 % (21.0-51.0); MEAN CORPUSCULAR HEMOGLOBIN 32.7 pg (27.0-34.0); MEAN CORPUSCULAR HGB CONC 34.4 g/dL (33.0-35.0); MEAN PLATELET VOLUME 8.5 fL (7.4-11.0); MONOCYTES % (AUTO) 5.4 % (0.0-13.0); PLATELET COUNT 223 X10^3/uL (150.0-450.0); RED BLOOD COUNT 3.29 X10^6/uL (4.7-6.0); RED CELL DISTRIBUTION WIDTH 13.6 % (11.6-16.5); WHITE BLOOD COUNT 18.4 X10^3/uL (3.6-10.0)
[2021-02-13 06:00] LABS: VANCOMYCIN,TROUGH 11.6 ug/mL (15-20)
[2021-02-13 06:11] LABS: ALANINE AMINOTRANSFERASE 29 Units/L (12-78); ALBUMIN 1.8 g/dL (3.4-5.0); ALKALINE PHOSPHATASE 49 Units/L (46-116); ASPARTATE AMINO TRANSFERASE 24 Units/L (15-37); BLOOD UREA NITROGEN 49 mg/dL (7-18); CALCIUM 8.2 mg/dL (8.5-10.1); CARBON DIOXIDE 28.6 mmol/L (21-32); COR NA(FOR HYPERGLY) 154 mmol/L (136-145); CREATININE 1.29 mg/dL (0.70-1.30); TOTAL PROTEIN 5.6 g/dL (6.4-8.2); eGFR NON BLACK RACES 57 (>60)
--- NOTE | 2021-02-13 06:25 | RAD ---
HISTORYPNEUMONIA F/USTUDYCHEST, 1 [id number]/02/2021.TECHNIQUEAP view of the chestFINDINGSET tube in good position. Left subclavian central line is in good position. NG tube courses below the visualized field of view. Patient is rotated. Cardiac and mediastinal contours are within normal limits. No significant change in right worse than left lung airspace and interstitial opacities. Cannot exclude a right-sided small pleural effusion. No pneumothorax.IMPRESSIONNo significant change from 1 day prior.Electronically signed by: Jared Golden (Feb 13, 2021 06:24:03)
[2021-02-13 06:26] LABS: CHLORIDE 118 mmol/L (98-107); SODIUM 153 mmol/L (136-145)
[2021-02-13] MEDS: ZOSYN VIAL 3.375 GRAMS 3.375 G in NS 100 ML IV + SPIKE MINIBAG* 100 ML IV SCH ×3 (06:32→21:04)
[2021-02-13] MEDS ORDERED: PHARMACY COMMENT IV NR (08:30)
[2021-02-13] MEDS: PULMICORT NEB TX 0.5 MG NEB SCH ×2 (09:45→20:43)
[2021-02-13] MEDS: LOVENOX INJ 40 MG SYR SC SCH (10:06)
[2021-02-13] MEDS: VANCOMYCIN IV *PREMIX 1.25 G/250 ML BAG 1.25 G/250 ML PIGGYBACK IV SCH (10:07)
[2021-02-13] MEDS: CARDIZEM TAB 30 MG PLAIN NG SCH ×2 (10:42→21:03)
[2021-02-13] MEDS ORDERED: HumuLIN R SC PRN (10:55)
[2021-02-13] MEDS: DIFLUCAN 100 MG IV (MIX by PHARMACY)* 100 MG/50 ML BAG IV SCH (12:00)
--- NOTE | 2021-02-13 13:06 | PCM.PROG ---
Progress Note Progress Note for Day of Date of Exam: 02/13/21 Subjective Subjective: Patient seen at bedside. He is intubated, on mechanical ventilation, appropriately sedated. FiO2 currently 65%. Labs: WBC 18.4, Hgb 10.8, Plt 223, Na 153, K 4.6, Cr:1.29, Glucose 152 AB.47/39/153/28/99% on FiO2 70% CXR: No significant change from 1 day prior. CTA Chest(02/08): Bilateral perihilar airspace opacities may represent pneumonia, pulmonary edema, or ARDS. ECHO 02/05/21: EF 65%, moderate aortic valve stenosis, moderate pulmonary HTN Sputum Cx NGTD Blood Cx pending Plan: Continue IV Vancomycin, Zosyn, Diflucan. Optimize ventilation and medical management. Continue to wean/titrate per protocol. Tele-critical care consulted, appreciate the recommendations. NGT, Jevity for nutrition. Hypernatremia on labs, increase IVF D5W to 100ml/h and free water intake with meals via NGT. Add Cardizem 30mg BID. Will start weaning off paralytic with addition of morphine gtt. Continue to closely monitor patient. Critical care time spent 30-74 minutes in clinical assessment, reviewing labs/imaging, decision making, and documentation. Past Medical Family Social History Past Med/Fam/Surg Hx: No changes since H&P Allergies: Allergies albuterol Allergy (Verified 02/08/21 10:44) verified with cryptoanalysis teacher and family member banana Allergy (Verified 02/08/21 10:46) cefaclor [From Ceclor] Allergy (Verified 02/08/21 10:46) corn Allergy (Verified 02/08/21 10:46) fosinopril [From Monopril] Allergy (Verified 02/08/21 10:46) homatropine [From Homatropaire] Allergy (Verified 02/08/21 10:46) hydrocodone Allergy (Verified 02/08/21 10:46) ipratropium [From Atrovent] Allergy (Verified 02/08/21 10:46) irbesartan [From Avapro] Allergy (Verified 02/08/21 10:46) isosorbide Allergy (Verified 02/08/21 10:46) Milk Containing Products Allergy (Verified 02/08/21 10:46) morphine Allergy (Verified 02/08/21 10:46) salmeterol [From Serevent] Allergy (Verified 02/08/21 10:46) tamsulosin Allergy (Verified 02/08/21 10:46) tramadol Allergy (Verified 02/08/21 10:46) valsartan [From Diovan] Allergy (Verified 02/08/21 10:46) Review of Systems ROS: No change since H&P Vital Signs and I&O's Vital Signs: Temperature 97.6 F Pulse Rate [Apical] 116 Pulse Rate [Left] 98 Pulse Rate 118 Respiratory Rate 18 Blood Pressure [Right Arm] 121/66 Blood Pressure [Left Arm] 114/59 Blood Pressure 114/59 O2 Sat by Pulse Oximetry 100 Intake and Output: Intake & Output 02/10/21 02/11/21 02/12/21 02/13/21 23:59 23:59 23:59 23:59 Intake Total 1464 / 1464 2016 / 2016 2152 / 2152 1316 / 1316 Output Total 1500 / 1500 1900 / 1900 2200 / 2200 750 / 750 Balance -36 / -36 117 / 117 -48 / -48 566 / 566 Physical Exam Oriented: Other (Intubated, mechanical ventilation) Eyes: Normal Ear: Normal Nose: Normal Throat: Other (Intubated, mechanical ventilation) Respiratory: Generalized and Rhonchi Cardiovascular: Tachycardia and Irregular : Normal Auscultation: Bowel Sounds: Normal Tenderness: Normal Skin: Normal Musculoskeletal: Normal Psychiatric: Other (Sedated) Mood Description: Calm Affect: Flat Speech Pattern: Artificially Ventilated Laboratory and Diagnostics Result Diagrams: 02/13/21 04:31 02/13/21 04:31 Labs: 02/09/21 07:50 Sputum - Endotracheal Wash Sputum Culture - Final 02/09/21 07:50 Sputum - Endotracheal Wash - Final 02/05/21 14:50 Blood Blood Culture - Final 02/05/21 14:48 Blood Blood Culture - Final 02/07/21 21:19 Sputum - Expectorated Sputum Sputum Culture - Final 02/07/21 21:19 Sputum - Expectorated Sputum - Final Laboratory WBC 18.4 X10^3/uL (3.6-10.0) H 02/13/21 04:31 RBC 3.29 X10^6/uL (4.7-6.0) L 02/13/21 04:31 Hgb 10.8 g/dL (13.5-18.0) L 02/13/21 04:31 Hct 31.3 % (42.0-54.0) L 02/13/21 04:31 MCV 95.0 fL (80.0-100.0) 02/13/21 04:31 MCH 32.7 pg (27.0-34.0) 02/13/21 04:31 MCHC 34.4 g/dL (33.0-35.0) 02/13/21 04:31 RDW 13.6 % (11.6-16.5) 02/13/21 04:31 Plt Count 223 X10^3/uL (150.0-450.0) 02/13/21 04:31 Plt Count Comment Adequate (ADEQUATE) 02/12/21 04:08 MPV 8.5 fL (7.4-11.0) 02/13/21 04:31 Neut % (Auto) 87.0 % (42.0-75.0) H 02/13/21 04:31 Lymph % (Auto) 6.4 % (21.0-51.0) L 02/13/21 04:31 [place] % (Auto) 5.4 % (0.0-13.0) 02/13/21 04:31 Eos % (Auto) 1.0 % (0.9-2.9) 02/13/21 04:31 Baso % (Auto) 0.2 % (0.2-1.0) 02/13/21 04:31 Neut # (Auto) 16.0 x10^3/uL (2.2-4.8) H 02/13/21 04:31 Lymph # (Auto) 1.2 X10^3/uL (1.3-2.9) L 02/13/21 04:31 [place] # (Auto) 1.0 x10^3/uL (0.3-0.8) H 02/13/21 04:31 Eos # (Auto) 0.2 x10^3/uL (0.0-0.2) 02/13/21 04:31 Baso # (Auto) 0.0 X10^3/uL (0.0-0.1) 02/13/21 04:31 Absolute Nucleated RBC 0.1 /100WBC 02/13/21 04:31 Total Counted 100 02/12/21 04:08 Neutrophils % (Manual) 89 % (39-76) H 02/12/21 04:08 Band Neutrophils % 4 % (0-10) 02/12/21 04:08 Lymphocytes % (Manual) 4 % (13-43) L 02/12/21 04:08 Monocytes % (Manual) 3 % (4-9) L 02/12/21 04:08 Plt Morphology Comment Normal (NORMAL) 02/12/21 04:08 RBC Morphology Normal (NORMAL) 02/12/21 04:08 D-Dimer 0.98 ug/ml (0.0-0.57) H* 02/08/21 06:17 Sample Site Rr 02/13/21 04:35 ABG pH 7.470 (7.35-7.45) H 02/13/21 04:35 ABG pCO2 39.0 mmHg (35.0-45.0) 02/13/21 04:35 ABG pO2 153.0 mmHg (80.0-100.0) H 02/13/21 04:35 ABG HCO3 28.4 mmol/L (22-26) H 02/13/21 04:35 ABG O2 Saturation 99.0 % (90-100) 02/13/21 04:35 ABG Base Excess 4.4 mmol/L (-2.0-2.0) H 02/13/21 04:35 [place] Test Pos 02/13/21 04:35 A-a Gradient 297.0 mmHg 02/13/21 04:35 FiO2 70 02/13/21 04:35 Blood Gas Comments Nany well ae 02/13/21 04:35 Sodium 153 mmol/L (136-145) H* 02/13/21 04:31 Corrected Sodium 154 mmol/L (136-145) H 02/13/21 04:31 Potassium 4.6 mmol/L (3.5-5.1) 02/13/21 04:31 Chloride 118 mmol/L (98-107) H* 02/13/21 04:31 Carbon Dioxide 28.6 mmol/L (21-32) 02/13/21 04:31 BUN 49 mg/dL (7-18) H 02/13/21 04:31 Creatinine 1.29 mg/dL (0.70-1.30) 02/13/21 04:31 Est GFR (MDRD) Af Amer > 60 (>60) 02/13/21 04:31 Est GFR (MDRD) Non-Af 57 (>60) L 02/13/21 04:31 Glucose 152 mg/dL (65-99) H 02/13/21 04:31 POC Glucose (mg/dL) 120 mg/dL (65-99) H 02/13/21 11:42 Lactic Acid 2.7 mmol/L (0.4-2.0) H 02/09/21 12:53 Calcium 8.2 mg/dL (8.5-10.1) L 02/13/21 04:31 Corrected Calcium 10.0 mg/dL (8.5-10.1) 02/13/21 04:31 Total Bilirubin 0.70 mg/dL (0.2-1.0) 02/13/21 04:31 AST 24 Units/L (15-37) 02/13/21 04:31 ALT 29 Units/L (12-78) 02/13/21 04:31 Alkaline Phosphatase 49 Units/L (46-116) 02/13/21 04:31 Creatine Kinase 134 Units/L (39-308) 02/08/21 10:44 CK-MB (CK-2) 1.5 ng/mL (0-4.0) 02/08/21 10:44 CK/CKMB % Calc 1.1 % (<4) 02/08/21 10:44 Troponin I 0.39 ng/mL (0-1.5) 02/10/21 06:25 B-Natriuretic Peptide 147 pg/mL (0-79) H 02/05/21 14:48 Total Protein 5.6 g/dL (6.4-8.2) L 02/13/21 04:31 Albumin 1.8 g/dL (3.4-5.0) L 02/13/21 04:31 Globulin 3.8 g/dL (2.5-4.5) 02/13/21 04:31 Albumin/Globulin Ratio 0.5 Ratio (1.1-2.1) L 02/13/21 04:31 Specimen Type Catherized urine 02/09/21 06:24 Urine Color Yellow (YELLOW) 02/09/21 06:24 Urine Appearance Clear (CLEAR) 02/09/21 06:24 Urine pH 6.0 (5.0 - 8.0) 02/09/21 06:24 Ur Specific [place] 1.020 (1.000-1.030) 02/09/21 06:24 Urine Protein 2+ (NEGATIVE) 02/09/21 06:24 Urine Glucose (UA) Negative (NEGATIVE) 02/09/21 06:24 Urine Ketones Negative (NEGATIVE) 02/09/21 06:24 Urine Occult Blood Negative (NEGATIVE) 02/09/21 06:24 Urine Nitrite Negative (NEGATIVE) 02/09/21 06:24 Urine Bilirubin Negative (NEGATIVE) 02/09/21 06:24 Urine Urobilinogen Normal (NORMAL) 02/09/21 06:24 Ur Leukocyte Esterase Negative (NEGATIVE) 02/09/21 06:24 Urine RBC 0-2 /HPF (0-3) 02/09/21 06:24 Urine WBC 0-2 /HPF (0-5) 02/09/21 06:24 Ur Squamous Epith Cells Rare /HPF (NEGATIVE) 02/09/21 06:24 Amorphous Sediment Trace /HPF (NEGATIVE) 02/05/21 14:54 Urine Bacteria Trace /HPF (NEGATIVE) 02/09/21 06:24 Hyaline Casts Rare /LPF (NEGATIVE) 02/09/21 06:24 Ur Culture Indicated? No/not indicated 02/09/21 06:24 Vancomycin Trough 11.6 ug/mL (15-20) L 02/13/21 04:31 Theophylline 9.2 ug/mL (10-20) L 02/09/21 05:35 SARS-CoV-2 (PCR) Negative (NEGATIVE) 02/08/21 07:55 Influenza Type A (PCR) Negative (NEGATIVE) 02/08/21 07:55 Influenza Type B (PCR) Negative (NEGATIVE) 02/08/21 07:55 RSV (PCR) Negative (NEGATIVE) 02/08/21 07:55 SARS CoV-2 RNA Rapid IVET Negative (NEGATIVE) 02/11/21 10:47 Miscellaneous Test Resp panel 02/08/21 11:22 Plan (1) COPD exacerbation: Status: Acute (2) Acute respiratory failure: Status: Acute Qualifiers: Respiratory failure complication: hypoxia Qualified Code(s): J96.01 - Acute respiratory failure with hypoxia (3) Atrial fibrillation with rapid ventricular response: Status: Acute (4) Pneumonia: Status: Acute Qualifiers: Laterality: bilateral Lung location: lower lobe of lung Pneumonia type: due to unspecified organism Qualified Code(s): J18.9 - Pneumonia, unspecified organism (5) COPD (chronic obstructive pulmonary disease): Status: Chronic Qualifiers: COPD type: COPD with acute exacerbation Qualified Code(s): J44.1 - Chronic obstructive pulmonary disease with (acute) exacerbation (6) Generalized weakness: Status: Acute (7) CAD (coronary artery disease): Status: Chronic Qualifiers: Associated angina: unspecified whether angina present Coronary Disease- Associated Artery/Lesion type: unspecified vessel or lesion type [place] vs. transplanted heart: unspecified whether [place] or transplanted heart Qualified Code(s): I25.10 - Atherosclerotic heart disease of [place] coronary artery without angina pectoris (8) Dementia: Status: Acute Qualifiers: Dementia behavioral disturbance: without behavioral disturbance Dementia type: unspecified type Qualified Code(s): F03.90 - Unspecified dementia without behavioral disturbance
[2021-02-13] MEDS: D5W 1000 ML IV 1,000 ML IV SCH (18:25)
[2021-02-13] MEDS: TYLENOL 325 MG TAB PO PRN (21:04)
[2021-02-14] MEDS: XOPENEX 1.25 MG/3 ML NEBULE NEB SCH ×4 (00:30→12:10)
[2021-02-14] MEDS: D5W 1000 ML IV 1,000 ML IV SCH ×3 (04:32→13:38)
[2021-02-14 05:22] LABS: ABG ALLEN TEST POS; ABG BASE EXCESS 2.8 mmol/L (-2.0-2.0); ABG HCO3 25.9 mmol/L (22-26)
[2021-02-14] MEDS: ZOSYN VIAL 3.375 GRAMS 3.375 G in NS 100 ML IV + SPIKE MINIBAG* 100 ML IV SCH ×2 (05:29→13:38)
[2021-02-14 06:21] LABS: BASOPHILS # (AUTO) 0.1 X10^3/uL (0.0-0.1); BASOPHILS % (AUTO) 0.5 % (0.2-1.0); EOSINOPHILS # (AUTO) 0.3 x10^3/uL (0.0-0.2); EOSINOPHILS % (AUTO) 1.5 % (0.9-2.9); HEMATOCRIT 32.8 % (42.0-54.0); HEMOGLOBIN 11.3 g/dL (13.5-18.0); LYMPHOCYTES % (AUTO) 4.5 % (21.0-51.0); MEAN CORPUSCULAR HEMOGLOBIN 32.9 pg (27.0-34.0); MEAN CORPUSCULAR HGB CONC 34.3 g/dL (33.0-35.0); MEAN CORPUSCULAR VOLUME 95.8 fL (80.0-100.0); MEAN PLATELET VOLUME 8.7 fL (7.4-11.0); MONOCYTES # (AUTO) 0.4 x10^3/uL (0.3-0.8); MONOCYTES % (AUTO) 1.6 % (0.0-13.0); NEUTROPHILS # (AUTO) 21.1 x10^3/uL (2.2-4.8); NEUTROPHILS % (AUTO) 91.9 % (42.0-75.0); PLATELET COUNT 210 X10^3/uL (150.0-450.0); RED BLOOD COUNT 3.43 X10^6/uL (4.7-6.0); RED CELL DISTRIBUTION WIDTH 13.3 % (11.6-16.5); WHITE BLOOD COUNT 22.9 X10^3/uL (3.6-10.0)
[2021-02-14 06:35] LABS: ALANINE AMINOTRANSFERASE 29 Units/L (12-78); ALBUMIN 1.7 g/dL (3.4-5.0); ALKALINE PHOSPHATASE 58 Units/L (46-116); ASPARTATE AMINO TRANSFERASE 25 Units/L (15-37); BLOOD UREA NITROGEN 35 mg/dL (7-18); CALCIUM 8.4 mg/dL (8.5-10.1); CARBON DIOXIDE 25.3 mmol/L (21-32); CHLORIDE 111 mmol/L (98-107); COR CA(FOR HYPOALB) 10.2 mg/dL (8.5-10.1); COR NA(FOR HYPERGLY) 145 mmol/L (136-145); CREATININE 1.08 mg/dL (0.70-1.30); SODIUM 144 mmol/L (136-145); TOTAL PROTEIN 5.7 g/dL (6.4-8.2); eGFR NON BLACK RACES > 60 (>60)
--- NOTE | 2021-02-14 06:35 | RAD ---
HISTORYPNEUMONIA F/USTUDYCHEST, 1 [id number]/03/2021.TECHNIQUEAP view of the chestFINDINGSET tube in good position. NG tube courses below the visualized field of view. Left subclavian central line is in good position.The cardiac and mediastinal contours appear stable. Right lung airspace disease appears similar. Mild worsening in left mid to lower lung airspace disease. No pneumothorax. Suspect small pleural effusions.IMPRESSIONMild worsening in left mid to lower lung airspace disease. Otherwise similar to prior.Electronically signed by: Jared Golden (Feb 14, 2021 06:33:51)
[2021-02-14 07:11] LABS: BAND NEUTROPHILS % 1 % (0-10); METAMYELOCYTES % 1; PLATELET MORPHOLOGY COMMENT NORMAL (NORMAL)
[2021-02-14] MEDS: CARDIZEM TAB 30 MG PLAIN NG SCH (08:11)
[2021-02-14] MEDS: LOVENOX INJ 40 MG SYR SC SCH (08:11)
[2021-02-14] MEDS: VANCOMYCIN IV *PREMIX 1.25 G/250 ML BAG 1.25 G/250 ML PIGGYBACK IV SCH ×2 (08:12→09:32)
[2021-02-14] MEDS: DIFLUCAN 100 MG IV (MIX by PHARMACY)* 100 MG/50 ML BAG IV SCH (08:15)
--- NOTE | 2021-02-14 08:32 | PCM.PROG ---
Progress Note Progress Note for Day of Date of Exam: 02/14/21 Subjective Subjective: Pt is a 81 year old male past medical history of Atrial fibrillation, COPD(~BL 2L), Dementia, HTN, admitted for acute respiratory failure due to diffuse bilateral pneumonia. He was intubated, placed on mechanical ventilation on (02/09). He is currently on FiO2 60%, pulse Ox 96%. Sputum cultures and blood cultures NGTD. COVID-19 negative multiple times, last on 02/11. His BP is stable, not requiring any pressors. BP 108/62, R 20, 98%. Labs: WBC 22.9, Hgb 11.3, Plt 210, Na 144, K 4.8, Cr:1.08, Glucose 145 AB.49/34/52/25/89% on FiO2 55% CXR: Mild worsening in left mid to lower lung airspace disease. CTA Chest(02/08): Bilateral perihilar airspace opacities may represent pneumonia, pulmonary edema, or ARDS. ECHO 02/05/21: EF 65%, moderate aortic valve stenosis, moderate pulmonary HTN Sputum Cx NGTD Blood Cx NGTD Plan: Continue IV Vancomycin, Zosyn, Diflucan. RT has been suctioning, he will probably need to have a bronchoscopy as well as further management of mechanical ventilator. Will attempt to transfer to higher level of care facility. Difficulty at this time due to COVID-19 pandemic. Optimize ventilation and medical management. Continue to wean/titrate per protocol. Tele-critical care consulted, appreciate the recommendations. [facility] Continue to closely monitor patient. Critical care time spent 30-74 minutes in clinical assessment, reviewing labs/imaging, decision making, and documentation. Past Medical Family Social History Past Med/Fam/Surg Hx: No changes since H&P Allergies: Allergies albuterol Allergy (Verified 02/08/21 10:44) verified with optical manufacturing technician and family member banana Allergy (Verified 02/08/21 10:46) cefaclor [From Ceclor] Allergy (Verified 02/08/21 10:46) corn Allergy (Verified 02/08/21 10:46) fosinopril [From Monopril] Allergy (Verified 02/08/21 10:46) homatropine [From Homatropaire] Allergy (Verified 02/08/21 10:46) hydrocodone Allergy (Verified 02/08/21 10:46) ipratropium [From Atrovent] Allergy (Verified 02/08/21 10:46) irbesartan [From Avapro] Allergy (Verified 02/08/21 10:46) isosorbide Allergy (Verified 02/08/21 10:46) Milk Containing Products Allergy (Verified 02/08/21 10:46) morphine Allergy (Verified 02/08/21 10:46) salmeterol [From Serevent] Allergy (Verified 02/08/21 10:46) tamsulosin Allergy (Verified 02/08/21 10:46) tramadol Allergy (Verified 02/08/21 10:46) valsartan [From Diovan] Allergy (Verified 02/08/21 10:46) Review of Systems ROS: No change since H&P Vital Signs and I&O's Vital Signs: Temperature 97.4 F Pulse Rate [Apical] 99 Pulse Rate [Left] 98 Pulse Rate 97 Respiratory Rate 20 Blood Pressure [Right Arm] 120/67 Blood Pressure [Left Arm] 114/59 Blood Pressure 114/59 O2 Sat by Pulse Oximetry 96 Intake and Output: Intake & Output 02/11/21 02/12/21 02/13/21 02/14/21 23:59 23:59 23:59 23:59 Intake Total 2016 2152 / 2152 2912 / 2912 2304 / 2304 Output Total 1900 / 1900 2200 / 2200 2275 / 2275 400 / 400 Balance 117 / 117 -48 / -48 637 / 637 1904 / 1904 Physical Exam Oriented: Other (Intubated, mechanical ventilation) Eyes: Normal Ear: Normal Nose: Normal Throat: Other (Intubated, mechanical ventilation) Respiratory: Generalized and Rhonchi Cardiovascular: Tachycardia and Irregular : Normal Auscultation: Bowel Sounds: Normal Tenderness: Normal Skin: Normal Musculoskeletal: Normal Psychiatric: Other (Sedated) Mood Description: Calm Affect: Flat Speech Pattern: Artificially Ventilated Laboratory and Diagnostics Result Diagrams: 02/14/21 05:40 02/14/21 05:40 Labs: 02/12/21 09:58 Blood Blood Culture - Preliminary 02/12/21 09:54 Blood Blood Culture - Preliminary 02/09/21 07:50 Sputum - Endotracheal Wash Sputum Culture - Final 02/09/21 07:50 Sputum - Endotracheal Wash - Final 02/05/21 14:50 Blood Blood Culture - Final 02/05/21 14:48 Blood Blood Culture - Final 02/07/21 21:19 Sputum - Expectorated Sputum Sputum Culture - Final 02/07/21 21:19 Sputum - Expectorated Sputum - Final Laboratory WBC 22.9 X10^3/uL (3.6-10.0) H 02/14/21 05:40 RBC 3.43 X10^6/uL (4.7-6.0) L 02/14/21 05:40 Hgb 11.3 g/dL (13.5-18.0) L 02/14/21 05:40 Hct 32.8 % (42.0-54.0) L 02/14/21 05:40 MCV 95.8 fL (80.0-100.0) 02/14/21 05:40 MCH 32.9 pg (27.0-34.0) 02/14/21 05:40 MCHC 34.3 g/dL (33.0-35.0) 02/14/21 05:40 RDW 13.3 % (11.6-16.5) 02/14/21 05:40 Plt Count 210 X10^3/uL (150.0-450.0) 02/14/21 05:40 Plt Count Comment Adequate (ADEQUATE) 02/14/21 05:40 MPV 8.7 fL (7.4-11.0) 02/14/21 05:40 Neut % (Auto) 91.9 % (42.0-75.0) H 02/14/21 05:40 Lymph % (Auto) 4.5 % (21.0-51.0) L 02/14/21 05:40 [place] % (Auto) 1.6 % (0.0-13.0) 02/14/21 05:40 Eos % (Auto) 1.5 % (0.9-2.9) 02/14/21 05:40 Baso % (Auto) 0.5 % (0.2-1.0) 02/14/21 05:40 Neut # (Auto) 21.1 x10^3/uL (2.2-4.8) H 02/14/21 05:40 Lymph # (Auto) 1.0 X10^3/uL (1.3-2.9) L 02/14/21 05:40 [place] # (Auto) 0.4 x10^3/uL (0.3-0.8) 02/14/21 05:40 Eos # (Auto) 0.3 x10^3/uL (0.0-0.2) H 02/14/21 05:40 Baso # (Auto) 0.1 X10^3/uL (0.0-0.1) 02/14/21 05:40 Absolute Nucleated RBC 0.1 /100WBC 02/14/21 05:40 Total Counted 100 02/14/21 05:40 Neutrophils % (Manual) 83 % (39-76) H 02/14/21 05:40 Band Neutrophils % 1 % (0-10) 02/14/21 05:40 Lymphocytes % (Manual) 8 % (13-43) L 02/14/21 05:40 Monocytes % (Manual) 6 % (4-9) 02/14/21 05:40 Eosinophils % (Manual) 1 % (0-6) 02/14/21 05:40 Metamyelocytes % 1 02/14/21 05:40 Plt Morphology Comment Normal (NORMAL) 02/14/21 05:40 RBC Morphology Normal (NORMAL) 02/14/21 05:40 D-Dimer 0.98 ug/ml (0.0-0.57) H* 02/08/21 06:17 Sample Site Rrad 02/14/21 05:15 ABG pH 7.490 (7.35-7.45) H 02/14/21 05:15 ABG pCO2 34.0 mmHg (35.0-45.0) L 02/14/21 05:15 ABG pO2 52.0 mmHg (80.0-100.0) L 02/14/21 05:15 ABG HCO3 25.9 mmol/L (22-26) 02/14/21 05:15 ABG O2 Saturation 89.0 % (90-100) L 02/14/21 05:15 ABG Base Excess 2.8 mmol/L (-2.0-2.0) H 02/14/21 05:15 [place] Test Pos 02/14/21 05:15 A-a Gradient 298.0 mmHg 02/14/21 05:15 FiO2 55.0 02/14/21 05:15 Blood Gas Comments Pt kvng well elj 02/14/21 05:15 Sodium 144 mmol/L (136-145) 02/14/21 05:40 Corrected Sodium 145 mmol/L (136-145) 02/14/21 05:40 Potassium 4.8 mmol/L (3.5-5.1) 02/14/21 05:40 Chloride 111 mmol/L (98-107) H 02/14/21 05:40 Carbon Dioxide 25.3 mmol/L (21-32) 02/14/21 05:40 BUN 35 mg/dL (7-18) H 02/14/21 05:40 Creatinine 1.08 mg/dL (0.70-1.30) 02/14/21 05:40 Est GFR (MDRD) Af Amer > 60 (>60) 02/14/21 05:40 Est GFR (MDRD) Non-Af > 60 (>60) 02/14/21 05:40 Glucose 145 mg/dL (65-99) H 02/14/21 05:40 POC Glucose (mg/dL) 144 mg/dL (65-99) H 02/14/21 05:21 Lactic Acid 2.7 mmol/L (0.4-2.0) H 02/09/21 12:53 Calcium 8.4 mg/dL (8.5-10.1) L 02/14/21 05:40 Corrected Calcium 10.2 mg/dL (8.5-10.1) H 02/14/21 05:40 Total Bilirubin 1.30 mg/dL (0.2-1.0) H 02/14/21 05:40 AST 25 Units/L (15-37) 02/14/21 05:40 ALT 29 Units/L (12-78) 02/14/21 05:40 Alkaline Phosphatase 58 Units/L (46-116) 02/14/21 05:40 Creatine Kinase 134 Units/L (39-308) 02/08/21 10:44 CK-MB (CK-2) 1.5 ng/mL (0-4.0) 02/08/21 10:44 CK/CKMB % Calc 1.1 % (<4) 02/08/21 10:44 Troponin I 0.39 ng/mL (0-1.5) 02/10/21 06:25 B-Natriuretic Peptide 147 pg/mL (0-79) H 02/05/21 14:48 Total Protein 5.7 g/dL (6.4-8.2) L 02/14/21 05:40 Albumin 1.7 g/dL (3.4-5.0) L 02/14/21 05:40 Globulin 4.0 g/dL (2.5-4.5) 02/14/21 05:40 Albumin/Globulin Ratio 0.4 Ratio (1.1-2.1) L 02/14/21 05:40 Specimen Type Catherized urine 02/09/21 06:24 Urine Color Yellow (YELLOW) 02/09/21 06:24 Urine Appearance Clear (CLEAR) 02/09/21 06:24 Urine pH 6.0 (5.0 - 8.0) 02/09/21 06:24 Ur Specific [place] 1.020 (1.000-1.030) 02/09/21 06:24 Urine Protein 2+ (NEGATIVE) 02/09/21 06:24 Urine Glucose (UA) Negative (NEGATIVE) 02/09/21 06:24 Urine Ketones Negative (NEGATIVE) 02/09/21 06:24 Urine Occult Blood Negative (NEGATIVE) 02/09/21 06:24 Urine Nitrite Negative (NEGATIVE) 02/09/21 06:24 Urine Bilirubin Negative (NEGATIVE) 02/09/21 06:24 Urine Urobilinogen Normal (NORMAL) 02/09/21 06:24 Ur Leukocyte Esterase Negative (NEGATIVE) 02/09/21 06:24 Urine RBC 0-2 /HPF (0-3) 02/09/21 06:24 Urine WBC 0-2 /HPF (0-5) 02/09/21 06:24 Ur Squamous Epith Cells Rare /HPF (NEGATIVE) 02/09/21 06:24 Amorphous Sediment Trace /HPF (NEGATIVE) 02/05/21 14:54 Urine Bacteria Trace /HPF (NEGATIVE) 02/09/21 06:24 Hyaline Casts Rare /LPF (NEGATIVE) 02/09/21 06:24 Ur Culture Indicated? No/not indicated 02/09/21 06:24 Vancomycin Trough 11.6 ug/mL (15-20) L 02/13/21 04:31 Theophylline 9.2 ug/mL (10-20) L 02/09/21 05:35 SARS-CoV-2 (PCR) Negative (NEGATIVE) 02/08/21 07:55 Influenza Type A (PCR) Negative (NEGATIVE) 02/08/21 07:55 Influenza Type B (PCR) Negative (NEGATIVE) 02/08/21 07:55 RSV (PCR) Negative (NEGATIVE) 02/08/21 07:55 SARS CoV-2 RNA Rapid IVET Negative (NEGATIVE) 02/11/21 10:47 Miscellaneous Test Resp panel 02/08/21 11:22 Plan (1) COPD exacerbation: Status: Acute (2) Acute respiratory failure: Status: Acute Qualifiers: Respiratory failure complication: hypoxia Qualified Code(s): J96.01 - Acute respiratory failure with hypoxia (3) Atrial fibrillation with rapid ventricular response: Status: Acute (4) Pneumonia: Status: Acute Qualifiers: Laterality: bilateral Lung location: lower lobe of lung Pneumonia type: due to unspecified organism Qualified Code(s): J18.9 - Pneumonia, unspecified organism (5) COPD (chronic obstructive pulmonary disease): Status: Chronic Qualifiers: COPD type: COPD with acute exacerbation Qualified Code(s): J44.1 - Chronic obstructive pulmonary disease with (acute) exacerbation (6) Generalized weakness: Status: Acute (7) CAD (coronary artery disease): Status: Chronic Qualifiers: Associated angina: unspecified whether angina present Coronary Disease- Associated Artery/Lesion type: unspecified vessel or lesion type [place] vs. transplanted heart: unspecified whether [place] or transplanted heart Qualified Code(s): I25.10 - Atherosclerotic heart disease of [place] coronary artery without angina pectoris (8) Dementia: Status: Acute Qualifiers: Dementia behavioral disturbance: without behavioral disturbance Dementia type: unspecified type Qualified Code(s): F03.90 - Unspecified dementia without behavioral disturbance
[2021-02-14] MEDS: PULMICORT NEB TX 0.5 MG NEB SCH (09:20)
[2021-02-14] MEDS: VERSED IV PREMIX 100 MG/100 ML IV.SOLN IV PRN (09:33)
[2021-02-14 14:54] VITALS: BP 102/59
[2021-02-16] MEDS ORDERED: PHARMACY COMMENT IV NR (08:30)
== END 2021-02-14 15:55 | disposition short-term general hospital (02) | DRG 193 ==
LOC: ER 13:10 → OBS 19:31 → MED/SURG 02-06 17:04
PROVIDERS: ADMIT Family Medicine; ATTEND Family Medicine
DX: R94.31 Abnormal electrocardiogram [ECG] [EKG]; R26.89 Other abnormalities of gait and mobility; F03.90 Unspecified dementia, unspecified severity, without behavioral disturbance, psychotic disturbance, mood disturbance, and anxiety; Z20.822 Contact with and (suspected) exposure to COVID-19; Z66 Do not resuscitate; J96.01 Acute respiratory failure with hypoxia; J18.8 Other pneumonia, unspecified organism; I87.2 Venous insufficiency (chronic) (peripheral); J44.1 Chronic obstructive pulmonary disease with (acute) exacerbation; R53.1 Weakness; I48.91 Unspecified atrial fibrillation; I25.10 Atherosclerotic heart disease of native coronary artery without angina pectoris